=== PATIENT | female | born 1950 | race Caucasian/White ===

== ENCOUNTER 2020-05-17 16:48 | Inpatient (IN) ==
--- OUTSIDE RECORDS SUMMARY | 2020-05-17 16:51 | External Medical Summary | Continuity of Care Document ---
:1950 Author Name Nissa Hawk, Provider Address Unavailable Unavailable , Care Team Providers Name Role Phone Unavailable Unavailable Unavailable SVEN CARRERA Unavailable Unavailable Unavailable Unavailable Unavailable Problems Obstructive sleep apnea of adult (327.23) (G47.33) Nocturnal hypoxemia (327.24) (G47.34) Suspected sleep apnea (781.99) (R29.818) Allergies and Adverse Reactions No Known Drug Allergies (Allergy) Medications Vitamin E 400 UNIT Oral Tablet; TAKE 1 TABLET DAILY. , M.DEdmar Start: 12-May-2018 Refills: 0 Vitamin D (Cholecalciferol) 10 MCG (400 UNIT) Oral Capsule; TAKE 1 CAPSULE Daily , M.DEdmar Start: 12-May-2018 Refills: 0 Vitamin C 500 MG Oral Tablet; TAKE 1 TABLET DAILY. Kenn Start: 12-May-2018 Refills: 0 Multi For Her Oral Tablet; TAKE 1 TABLET DAILY. , M.DEdmar Start: 12-May-2018 Refills: 0 Clindamycin Phosphate 1 % External Gel; as directed Kenn Start: 12-May-2018 Refills: 0 75 ML Bottle Aspirin 81 81 MG Oral Tablet Delayed Release; TAKE 1 TABLET DAILY. , M.DEdmar Start: 12-May-2018 Refills: 0 Procedures History of section Status: Comp leted Immunizations Immunizations not documented Family History Mother Family history of hypertension (V17.49) (Z82.49) Status: Act caron Family history of heart failure (V17.49) (Z82.49) Status: Ac tive Family history of diabetes mellitus (V18.0) (Z83.3) Status: Active Plan of Treatment Planned Observations Planned Goals not documented Results No Known Results Results not documented
--- NOTE | 2020-05-17 17:33 | Emergency Department Note ---
History of Present Illness General Chief complaint: Abdominal Pain Stated complaint: AB PAIN Time Seen by Provider: 05/17/20 17:18 Source: patient Mode of arrival: EMS History of Present Illness Provider complaint: Abdominal pain Onset (ago): month(s) Location: abdomen (Periumbilical) Radiation: non-radiation Severity: moderate Pain Consistency: + intermittent and + now resolved Maximum Pain Intensity: 1 Quality: + burning and + aching Exacerbated By: + eating Associated symptoms: + diaphoresis; no chest pain, no cough, no fever/chills, no nausea/vomiting and no shortness of breath Treatments prior to arrival: NSAID (Toradol 15 and Zofran 4 mg IV) This is a 69-year-old female presents with periumbilical abdominal pain intermittently for the past 2 months. Today she ate a veggie burger and about an hour later she developed pain in the periumbilical region. She describes it as a burning and aching pain. It was associated with diaphoresis. She was given Toradol and Zofran in the ambulance and she states the pain is now gone. She states she does not have the pain every day but notices it after eating. She denies any fever, vomiting, black or bloody stools, diarrhea, chest pain, shortness of breath, cough or cold symptoms or known exposure to COVID-19. She denies any leg swelling or pain. She does have some chronic low back pain. She has had no urinary symptoms. She states that she is normally bradycardic. She states that her doctor told her this is because she used to be very active. Home Medications Home Medications Medication Instructions Recorded Confirmed Type Meloxicam (Mobic) 7.5 mg PO QAM #0 tab 06/19/15 History Allergies Allergy/AdvReac Type Severity Reaction Status Date / Time No Known Drug Allergies Allergy Unknown . Verified 06/19/15 07:32 Past Med/Surg History Medical History Hypertension Sleep apnea Social History Smoking Status: Former smoker Preferred Language: Portuguese Feels Safe at Home: Yes Review of Systems See HPI for pertinent positives & negatives. and A total of 10 systems reviewed and were otherwise negative Physical Exam Vital Signs Vital Signs - 24 hr 05/17/20 16:55 05/17/20 17:27 05/17/20 18:01 Temperature 37.1 C Temperature Source Oral Pulse Rate 52 L 45 L Pulse Rate from SpO2 Sensor 46 L Pulse Rhythm Regular Pulse Strength Normal Respiratory Rate 20 13 Respiratory Effort / Characteristics Non-Labored Spontaneous Respiratory Depth Normal Respiratory Pattern Regular Blood Pressure 167/88 H 166/81 H Blood Pressure Mean 114 101 Blood Pressure Position Sitting Pulse Oximetry 95 96 Oxygen Delivery Method Room Air Room Air Room Air Sepsis Recent Fever Within 48 Hours No Sepsis New/Unexplained Change in Mental Status No Sepsis Action Taken by Nursing No Action Required 05/17/20 18:30 Temperature Temperature Source Pulse Rate 47 L Pulse Rate from SpO2 Sensor 49 L Pulse Rhythm Pulse Strength Respiratory Rate 19 Respiratory Effort / Characteristics Respiratory Depth Respiratory Pattern Blood Pressure 184/75 H Blood Pressure Mean 100 Blood Pressure Position Pulse Oximetry 97 Oxygen Delivery Method Room Air Sepsis Recent Fever Within 48 Hours Sepsis New/Unexplained Change in Mental Status Sepsis Action Taken by Nursing Constitutional: Vital signs reviewed. Eyes: Pupils are equal round reactive to light. Conjunctiva are noninjected. ENT: Pharynx is clear without erythema or exudate. Mucous membranes are moist. Neck supple without meningeal signs. Respiratory: Clear to auscultation bilaterally. Breath sounds are equal bilaterally. Cardiovascular: Bradycardia. Normal rhythm. No rubs or gallops. GI: Soft, nondistended and nontender. Bowel sounds are present. Musculoskeletal: No peripheral edema. No lower extremity tenderness. Integumentary: No cyanosis. or jaundice. Neurological: The patient is awake and alert. No focal deficits. Psychiatric: Normal affect. Not anxious appearing. Course Administered Medications Discontinued Medications Ioversol (Optiray 320 125ml) 119 ml IV ONCE ONE Stop: 05/17/20 18:49 Last Admin: 05/17/20 18:48 Dose: 119 ml Documented by: [id number] Medical Decision Making Differential Diagnosis Cholelithiasis, cholecystitis, pancreatitis, peptic ulcer disease, mesenteric ischemia, NC Medical Records Attestation: I reviewed the patient's medical records. I did perform a limited focused review of portions of the patient's old chart on the electronic medical record. The patient has had no recent pertinent visits to this hospital. Home Medications Current Medication List: was personally reviewed by me Laboratory Data Attestation: I reviewed the patient's lab results. Result diagrams: 05/17/20 17:00 05/17/20 17:00 Lab Results 05/17/20 05/17/20 05/17/20 Range/Units 17:00 17:00 18:01 WBC 8.04 (4.8-10.8) K/uL RBC 4.98 (4.2-5.4) M/uL Hgb 14.5 (12.0-16.0) g/dL Hct 44.4 (37-47) % MCV 89.2 (80-100) fL MCH 29.1 (25-34) pg MCHC 32.7 (32-36) g/dL RDW Std Deviation 43.0 (36.4-46.3) fL RDW Coeff of Lizette 13.1 (11.5-14.5) % Plt Count 297 (130-400) K/uL MPV 10.4 (7.4-10.4) fL Immature Gran % (Auto) 0.4 % Neut % (Auto) 54.3 % Lymph % (Auto) 38.1 % Carter % (Auto) 5.3 % Eos % (Auto) 1.7 % Baso % (Auto) 0.2 % Neut # (Auto) 4.36 (1.4-6.5) K/uL Lymph # (Auto) 3.06 (1.2-3.4) K/uL Carter # (Auto) 0.43 (0.11-0.59) K/uL Eos # (Auto) 0.14 (0-0.5) K/uL Baso # (Auto) 0.02 (0-0.2) K/uL Immature Gran # (Auto) 0.03 H (0.00-0.02) K/uL Sodium 140 (136-145) mmol/L Potassium 3.7 (3.5-5.1) mmol/L Chloride 108 H (98-107) mmol/L Carbon Dioxide 27 (21-32) mmol/L Anion Gap 5.0 (3-11) BUN 11 (7-18) mg/dl Creatinine 0.77 (0.6-1.2) mg/dl Est Cr Clr Drug Dosing 76.9 ml/min Est GFR ( Amer) 90.7 Est GFR (Non-Af Amer) 78.2 BUN/Creatinine Ratio 14.8 (10-20) Glucose 126 H (70-99) mg/dl Lactate 0.9 (0.4-2.0) mmol/L Calcium 9.2 (8.5-10.1) mg/dl Total Bilirubin 1.3 H (0.2-1) mg/dl AST 119 H (15-37) U/L ALT 52 (12-78) U/L Alkaline Phosphatase 164 H (45-117) U/L Troponin I < 0.015 (0-0.045) ng/ml Total Protein 7.9 (6.4-8.2) gm/dl Albumin 3.7 (3.4-5.0) gm/dl Globulin 4.2 H (2.5-4.0) gm/dl Albumin/Globulin Ratio 0.9 (0.9-2) Lipase 76 (73-393) U/L Urine Color Urine Appearance (Clear) Urine pH (4.5-7.5) Ur Specific [place] (1.000-1.030) Urine Protein (Negative) Urine Glucose (UA) (Negative) Urine Ketones (Negative) Urine Blood (Negative) Urine Nitrite (Negative) Urine Bilirubin (Negative) Urine Urobilinogen (Negative) Ur Leukocyte Esterase (Negative) Urine WBC (Auto) (0-5) /hpf Urine RBC (Auto) (0-4) /hpf U Hyaline Cast (Auto) (0-5) /lpf U Epithel Cells (Auto) (0-5) /lpf Urine Bacteria (Auto) (Negative) 05/17/20 Range/Units 18:30 WBC (4.8-10.8) K/uL RBC (4.2-5.4) M/uL Hgb (12.0-16.0) g/dL Hct (37-47) % MCV (80-100) fL MCH (25-34) pg MCHC (32-36) g/dL RDW Std Deviation (36.4-46.3) fL RDW Coeff of Lizette (11.5-14.5) % Plt Count (130-400) K/uL MPV (7.4-10.4) fL Immature Gran % (Auto) % Neut % (Auto) % Lymph % (Auto) % Carter % (Auto) % Eos % (Auto) % Baso % (Auto) % Neut # (Auto) (1.4-6.5) K/uL Lymph # (Auto) (1.2-3.4) K/uL Carter # (Auto) (0.11-0.59) K/uL Eos # (Auto) (0-0.5) K/uL Baso # (Auto) (0-0.2) K/uL Immature Gran # (Auto) (0.00-0.02) K/uL Sodium (136-145) mmol/L Potassium (3.5-5.1) mmol/L Chloride (98-107) mmol/L Carbon Dioxide (21-32) mmol/L Anion Gap (3-11) BUN (7-18) mg/dl Creatinine (0.6-1.2) mg/dl Est Cr Clr Drug Dosing ml/min Est GFR ( Amer) Est GFR (Non-Af Amer) BUN/Creatinine Ratio (10-20) Glucose (70-99) mg/dl Lactate (0.4-2.0) mmol/L Calcium (8.5-10.1) mg/dl Total Bilirubin (0.2-1) mg/dl AST (15-37) U/L ALT (12-78) U/L Alkaline Phosphatase (45-117) U/L Troponin I (0-0.045) ng/ml Total Protein (6.4-8.2) gm/dl Albumin (3.4-5.0) gm/dl Globulin (2.5-4.0) gm/dl Albumin/Globulin Ratio (0.9-2) Lipase (73-393) U/L Urine Color Yellow Urine Appearance Clear (Clear) Urine pH 6.5 (4.5-7.5) Ur Specific [place] 1.010 (1.000-1.030) Urine Protein Negative (Negative) Urine Glucose (UA) Negative (Negative) Urine Ketones 1+ H (Negative) Urine Blood Negative (Negative) Urine Nitrite Negative (Negative) Urine Bilirubin Negative (Negative) Urine Urobilinogen Positive H (Negative) Ur Leukocyte Esterase Trace H (Negative) Urine WBC (Auto) 1-5 (0-5) /hpf Urine RBC (Auto) 0-4 (0-4) /hpf U Hyaline Cast (Auto) 0 (0-5) /lpf U Epithel Cells (Auto) 10-20 H (0-5) /lpf Urine Bacteria (Auto) Negative (Negative) Imaging Data Radiologist's Impression: CT angio abdomen pelvis w con HISTORY: periumbilical pain eval for mesenteric ischemia TECHNIQUE: Multiaxial CT images of the abdomen and pelvis were performed following the use of intravenous contrast to evaluate the major arterial structures. Maximal intensity projection images were also obtained. COMPARISON STUDY: None. FINDINGS: Mild elevation of the left hemidiaphragm. There are mild dependent changes seen within the lung bases. No pneumoperitoneum. No pneumatosis. No fractures within the visualized osseous structures. The heart is mildly enlarged. Abdominal aorta and iliac arteries are normal in course and caliber. No significant stenosis within the celiac, superior mesenteric, or inferior mesenteric arteries. Of note, the right hepatic artery originates from the prox imal superior mesenteric artery. The bilateral renal arteries are also widely patent. Diffusely thick-walled gallbladder with mild surrounding fat stranding. This likely represents acute cholecystitis. The liver, pancreas, spleen, and adrenal glands are unremarkable. No hydronephrosis. Small bilateral peripelvic renal cysts are noted. There is a 1 cm fat-containing lesion within the lower pole the right kidney. This is consistent with an angiomyolipoma. No retroperitoneal lymphadenopathy. Tiny fat-containing umbilical hernia. The bladder, uterus, bilateral adnexa are within normal limits. Colonic diverticulosis. No evidence for acute diverticulitis. No bowel wall thickening or obstruction. Normal appendix. IMPRESSION: 1. Diffusely thick-walled gallbladder with mild surrounding inflammatory change. This likely represents acute cholecystitis. 2. No significant stenosis or occlusion within the celiac or mesenteric arteries. 3. No bowel wall thickening or obstruction. 4. Normal appendix. 5. A 1 cm right renal angiomyolipoma. ACT 112: Negative or not required by law. Electronically signed by: Oscar Maza M.D. 05/17/2020 7:03 PM ECG Data Attestation: I personally reviewed and interpreted this ECG as follows: Indication: + abdominal pain Rate (beats per minute): 45 Rhythm: + sinus bradycardia ECG Intervals/blocks: no Complete heart block ECG ST segments: no ST elevation ECG Findings: no PVCs Blood Pressure Blood Pressure Findings: Elevated blood pressure Blood Pressure Disposition: Referred to patients primary care provider MDM Narrative I did evaluate the patient as noted above. The patient is presenting with intermittent postprandial abdominal pain for the past 2 months. She had a severe episode today after eating and called the ambulance. She was given Toradol and Zofran in the ambulance and now states that her pain is gone. She has no tenderness on examination. I did place an order for continuous cardiac monitoring. The monitor showed sinus bradycardia with a rate of 51. I did order and personally review the patient's 12-lead EKG as described above. She has sinus bradycardia without any acute ischemic changes. I did order a urine analysis. I did order and review the patient's blood work as noted in the electronic medical record. Her white count is not elevated. LFTs demonstrate a mildly elevated bilirubin at 1.3 and a mildly elevated AST. Lipase is within normal limits. Lactate is not elevated. I did order a CT angiogram of the abdomen and pelvis. I did review the images myself as well as the radiology report as described above. There is no evidence of acute mesenteric ischemia or stenosis or occlusion to the arteries. She does, however, have evidence of acute cholecystitis with a diffusely thick walled gallbladder with surrounding inflammatory changes. I did discuss the test results with the patient. She will be hospitalized for further care and evaluation. I did discuss the case with Dr. Alcantara of surgery. Impression & Plan Acute cholecystitis Discharge Plan Visit Data Chief Complaint: Abdominal Pain Stated Complaint: AB PAIN ED Provider: Armando Walters Discharge Problem: Acute cholecystitis Patient Disposition: Being Evaluated by Surgeon Forms Stand Alone Forms: [facility] Prescriptions Prescriptions: No Action Meloxicam (Mobic) 7.5 MG tablet 7.5 mg PO QAM Qty: 0 RF: 0 Referrals Referrals: Darius Jackson M.D. [Primary Care Provider] -
[2020-05-17 17:38] LABS: Basophils # (auto) 0.02 K/uL (0-0.2); Basophils % (auto) 0.2 %; Eosinophils # (auto) 0.14 K/uL (0-0.5); Eosinophils % (auto) 1.7 %; Hematocrit (blood only) 44.4 % (37-47); Hemoglobin 14.5 g/dL (12.0-16.0); Immature Granulocytes # (auto) 0.03 K/uL (0.00-0.02); Immature Granulocytes % (auto) 0.4 %; Lymphocytes # (auto) 3.06 K/uL (1.2-3.4); Lymphocytes % (auto) 38.1 %; Mean Corpuscular Hemoglobin 29.1 pg (25-34); Mean Corpuscular Hgb Conc 32.7 g/dL (32-36); Mean Corpuscular Volume 89.2 fL (80-100); Mean Platelet Volume 10.4 fL (7.4-10.4); Monocytes # (auto) 0.43 K/uL (0.11-0.59); Monocytes % (auto) 5.3 %; Neutrophils # (auto) 4.36 K/uL (1.4-6.5); Neutrophils % (auto) 54.3 %; Platelet Count 297 K/uL (130-400); RDW Coefficient of Variation 13.1 % (11.5-14.5); Red Blood Count 4.98 M/uL (4.2-5.4); White Blood Count 8.04 K/uL (4.8-10.8)
[2020-05-17 17:45] LABS: Alanine Aminotransferase 52 U/L (12-78); Albumin Level 3.7 gm/dl (3.4-5.0); Aspartate Aminotransferase 119 U/L (15-37); BUN Creatinine Ratio 14.8 (10-20); Blood Urea Nitrogen 11 mg/dl (7-18); Calcium 9.2 mg/dl (8.5-10.1); Carbon Dioxide 27 mmol/L (21-32); Chloride 108 mmol/L (98-107); Creatinine Clr Calc Pharmacy 76.9 ml/min; Est GFR (African American) 90.7; Est GFR (Non-African American) 78.2; Glucose 126 mg/dl (70-99); Lipase 76 U/L (73-393); Potassium 3.7 mmol/L (3.5-5.1); Sodium 140 mmol/L (136-145)
[2020-05-17 17:50] LABS: Albumin Globulin Ratio 0.9 (0.9-2); Alkaline Phosphatase 164 U/L (45-117); Bilirubin,Total 1.3 mg/dl (0.2-1); Globulin 4.2 gm/dl (2.5-4.0); Total Protein 7.9 gm/dl (6.4-8.2); Troponin I < 0.015 ng/ml (0-0.045)
[2020-05-17] MEDS ORDERED: OPTIRAY 320 125ml IV ONE (18:48)
[2020-05-17 18:51] LABS: Appearance Urine Clear (Clear); Bacteria Urine Automated Negative (Negative); Bilirubin Urine Negative (Negative); Blood Urine Negative (Negative); Cast Urine Automated 0 /lpf (0-5); Color Urine Yellow; Glucose Urine UA Negative (Negative); Ketones Urine 1+ (Negative); Leukocyte Esterase Urine Trace (Negative); Nitrite Urine Negative (Negative); Protein Urine Negative (Negative); RBC Urine Automated 0-4 /hpf (0-4); Urobilinogen Urine Positive (Negative); pH Urine 6.5 (4.5-7.5)
--- NOTE | 2020-05-17 19:04 | CT Scan Report ---
CT angio abdomen pelvis w con HISTORY: periumbilical pain eval for mesenteric ischemia TECHNIQUE: Multiaxial CT images of the abdomen and pelvis were performed following the use of intrave nous contrast to evaluate the major arterial structures. Maximal intensity projection images were als o obtained. COMPARISON STUDY: None. FINDINGS: Mild elevation of the left hemidiaphragm. There are mild dependent changes seen within the lung bases. No pneumoperitoneum. No pneumatosis. No fractures within the visualized osseous structure s. The heart is mildly enlarged. Abdominal aorta and iliac arteries are normal in course and caliber. No significant stenosis within the celiac, superior mesenteric, or inferior mesenteric arteries. Of note, the right hepatic artery originates from the proximal superior mesenteric artery. The bilateral renal arteries are also widely patent. Diffusely thick-walled gallbladder with mild surrounding fat stranding. This likely represents acute cholecystitis. The liver, pancreas, spleen, and adrenal gland s are unremarkable. No hydronephrosis. Small bilateral peripelvic renal cysts are noted. There is a 1 cm fat-containing lesion within the lower pole the right kidney. This is consistent with an angiomyo lipoma. No retroperitoneal lymphadenopathy. Tiny fat-containing umbilical hernia. The bladder, uterus , bilateral adnexa are within normal limits. Colonic diverticulosis. No evidence for acute diverticul itis. No bowel wall thickening or obstruction. Normal appendix. IMPRESSION: 1. Diffusely thick-walled gallbladder with mild surrounding inflammatory change. This likely represen ts acute cholecystitis. 2. No significant stenosis or occlusion within the celiac or mesenteric arteries. 3. No bowel wall thickening or obstruction. 4. Normal appendix. 5. A 1 cm right renal angiomyolipoma. ACT 112: Negative or not required by law. Electronically signed by: Oscar Maza M.D. 05/17/2020 7:03 PM
--- NOTE | 2020-05-17 20:48 | History & Physical Report ---
Date of Service May 17, 2020 Assessment & Plan (1) Acute cholecystitis: This patient has a history of postprandial pain in the epigastrium and right upper quadrant. This is the most severe episode. It is now resolving. She has an ache there now and her abdomen has no tenderness. Her bilirubin alkaline phosphatase and AST are mildly elevated. Her CAT scan demonstrates thickening of the gallbladder wall with pericholecystic fluid. Willing to admit the patient. We will place her on antibiotics. We will repeat her LFTs and CBC in the morning to see if there is a trend upward. I am also going to get an ultrasound of the right upper quadrant to evaluate ductal anatomy more fully. We discussed surgical intervention. We will await the results of the testing and have further discussion. History of Present Illness Chief Complaint: Right upper quadrant abdominal pain Primary Care Provider: Darius Jackson This is a 69-year-old female who presented to the emergency room with a complaint of abdominal pain centered in the right upper quadrant with some in the epigastric area that she described as a burning sensation. It began an hour after eating lunch today around 2:00. The severity increased in intensity such that it was severe. She called the ambulance and was transported for evaluation here in the emergency room. Over the last 2 to 3 months she has had similar pain to this but not this severe. It is located in the same place however. The pain always follows eating. She is unsure but thinks that fatty foods may be contributing. She had nausea with this pain but does not usually. She has not vomited. Her bowel habits have been regular without melena or hematochezia and she denies dysuria and hematuria. She has never had jaundice, hepatitis or pancreatitis. She felt hot and diaphoretic but does not think she had a fever. Allergies Allergy/AdvReac Type Severity Reaction Status Date / Time No Known Drug Allergies Allergy Unknown . Verified 05/17/20 20:15 Home Medications Home Medications Medication Instructions Recorded Confirmed Type activated charcoal [Charcoal] 0 mg PO UD PRN 05/17/20 05/17/20 History ascorbic acid (vitamin C) [Vitamin 1,000 mg PO BID 05/17/20 05/17/20 History C] cholecalciferol (vitamin D3) 150 - 200 mcg PO DAILY 05/17/20 05/17/20 History [Vitamin D3] vitamin E 0 unit PO DAILY 05/17/20 05/17/20 History Past Med/Surg History Medical History (Updated 05/17/20 @ 19:46 by Armando Walters MD) Hypertension Sleep apnea Surgical History (Updated 05/17/20 @ 20:44 by Tomi Alcantara MD) deliv NOS-unsp Social History Smoking Status: Former smoker Preferred Language: [place] Feels Safe at Home: Yes Review of Systems Review of Systems: All systems reviewed & are unremarkable except as noted in HPI & below Physical Exam Constitutional: no acute distress Neck: trachea midline Respiratory: normal respiratory effort, lungs clear to auscultation Cardiovascular: Rate/Rhythm: regular rate and regular rhythm Gastrointestinal (Abdomen): Inspection/Auscultation: normal bowel sounds; abdomen not distended Percussion/Palpation: abdomen soft; abdomen nontender Skin: no rashes, warm and dry Lymphatic: no cervical lymphadenopathy Results & Data Results & Data ([facility]) Vital Signs (Past 12 Hours) Vital Signs Temp Pulse Resp BP Pulse Ox 05/17/20 19:31 53 L 14 178/79 H 97 05/17/20 19:00 52 L 18 181/84 H 97 05/17/20 18:30 47 L 19 184/75 H 97 05/17/20 18:01 45 L 13 166/81 H 96 05/17/20 16:55 37.1 C 52 L 20 167/88 H 95 Laboratory Results 05/17/20 05/17/20 05/17/20 Range/Units 18:30 18:01 17:00 WBC 8.04 (4.8-10.8) K/uL RBC 4.98 (4.2-5.4) M/uL Hgb 14.5 (12.0-16.0) g/dL Hct 44.4 (37-47) % MCV 89.2 (80-100) fL MCH 29.1 (25-34) pg MCHC 32.7 (32-36) g/dL RDW Std Deviation 43.0 (36.4-46.3) fL RDW Coeff of Lizette 13.1 (11.5-14.5) % Plt Count 297 (130-400) K/uL MPV 10.4 (7.4-10.4) fL Immature Gran % (Auto) 0.4 % Neut % (Auto) 54.3 % Lymph % (Auto) 38.1 % Lewis % (Auto) 5.3 % Eos % (Auto) 1.7 % Baso % (Auto) 0.2 % Neut # (Auto) 4.36 (1.4-6.5) K/uL Lymph # (Auto) 3.06 (1.2-3.4) K/uL Lewis # (Auto) 0.43 (0.11-0.59) K/uL Eos # (Auto) 0.14 (0-0.5) K/uL Baso # (Auto) 0.02 (0-0.2) K/uL Immature Gran # (Auto) 0.03 H (0.00-0.02) K/uL Sodium (136-145) mmol/L Potassium (3.5-5.1) mmol/L Chloride (98-107) mmol/L Carbon Dioxide (21-32) mmol/L Anion Gap (3-11) BUN (7-18) mg/dl Creatinine (0.6-1.2) mg/dl Est Cr Clr Drug Dosing ml/min Est GFR ( Amer) Est GFR (Non-Af Amer) BUN/Creatinine Ratio (10-20) Glucose (70-99) mg/dl Lactate 0.9 (0.4-2.0) mmol/L Calcium (8.5-10.1) mg/dl Total Bilirubin (0.2-1) mg/dl AST (15-37) U/L ALT (12-78) U/L Alkaline Phosphatase (45-117) U/L Troponin I (0-0.045) ng/ml Total Protein (6.4-8.2) gm/dl Albumin (3.4-5.0) gm/dl Globulin (2.5-4.0) gm/dl Albumin/Globulin Ratio (0.9-2) Lipase (73-393) U/L Urine Color Yellow Urine Appearance Clear (Clear) Urine pH 6.5 (4.5-7.5) Ur Specific [place] 1.010 (1.000-1.030) Urine Protein Negative (Negative) Urine Glucose (UA) Negative (Negative) Urine Ketones 1+ H (Negative) Urine Blood Negative (Negative) Urine Nitrite Negative (Negative) Urine Bilirubin Negative (Negative) Urine Urobilinogen Positive H (Negative) Ur Leukocyte Esterase Trace H (Negative) Urine WBC (Auto) 1-5 (0-5) /hpf Urine RBC (Auto) 0-4 (0-4) /hpf U Hyaline Cast (Auto) 0 (0-5) /lpf U Epithel Cells (Auto) 10-20 H (0-5) /lpf Urine Bacteria (Auto) Negative (Negative) 05/17/20 Range/Units 17:00 WBC (4.8-10.8) K/uL RBC (4.2-5.4) M/uL Hgb (12.0-16.0) g/dL Hct (37-47) % MCV (80-100) fL MCH (25-34) pg MCHC (32-36) g/dL RDW Std Deviation (36.4-46.3) fL RDW Coeff of Lizette (11.5-14.5) % Plt Count (130-400) K/uL MPV (7.4-10.4) fL Immature Gran % (Auto) % Neut % (Auto) % Lymph % (Auto) % Lewis % (Auto) % Eos % (Auto) % Baso % (Auto) % Neut # (Auto) (1.4-6.5) K/uL Lymph # (Auto) (1.2-3.4) K/uL Lewis # (Auto) (0.11-0.59) K/uL Eos # (Auto) (0-0.5) K/uL Baso # (Auto) (0-0.2) K/uL Immature Gran # (Auto) (0.00-0.02) K/uL Sodium 140 (136-145) mmol/L Potassium 3.7 (3.5-5.1) mmol/L Chloride 108 H (98-107) mmol/L Carbon Dioxide 27 (21-32) mmol/L Anion Gap 5.0 (3-11) BUN 11 (7-18) mg/dl Creatinine 0.77 (0.6-1.2) mg/dl Est Cr Clr Drug Dosing 76.9 ml/min Est GFR ( Amer) 90.7 Est GFR (Non-Af Amer) 78.2 BUN/Creatinine Ratio 14.8 (10-20) Glucose 126 H (70-99) mg/dl Lactate (0.4-2.0) mmol/L Calcium 9.2 (8.5-10.1) mg/dl Total Bilirubin 1.3 H (0.2-1) mg/dl AST 119 H (15-37) U/L ALT 52 (12-78) U/L Alkaline Phosphatase 164 H (45-117) U/L Troponin I < 0.015 (0-0.045) ng/ml Total Protein 7.9 (6.4-8.2) gm/dl Albumin 3.7 (3.4-5.0) gm/dl Globulin 4.2 H (2.5-4.0) gm/dl Albumin/Globulin Ratio 0.9 (0.9-2) Lipase 76 (73-393) U/L Urine Color Urine Appearance (Clear) Urine pH (4.5-7.5) Ur Specific [place] (1.000-1.030) Urine Protein (Negative) Urine Glucose (UA) (Negative) Urine Ketones (Negative) Urine Blood (Negative) Urine Nitrite (Negative) Urine Bilirubin (Negative) Urine Urobilinogen (Negative) Ur Leukocyte Esterase (Negative) Urine WBC (Auto) (0-5) /hpf Urine RBC (Auto) (0-4) /hpf U Hyaline Cast (Auto) (0-5) /lpf U Epithel Cells (Auto) (0-5) /lpf Urine Bacteria (Auto) (Negative) Diagnostic Findings CT angio abdomen pelvis w con HISTORY: periumbilical pain eval for mesenteric ischemia TECHNIQUE: Multiaxial CT images of the abdomen and pelvis were performed following the use of intravenous contrast to evaluate the major arterial structures. Maximal intensity projection images were also obtained. COMPARISON STUDY: None. FINDINGS: Mild elevation of the left hemidiaphragm. There are mild dependent changes seen within the lung bases. No pneumoperitoneum. No pneumatosis. No fractures within the visualized osseous structures. The heart is mildly enlarged. Abdominal aorta and iliac arteries are normal in course and caliber. No significant stenosis within the celiac, superior mesenteric, or inferior mesenteric arteries. Of note, the right hepatic artery originates from the proximal superior mesenteric artery. The bilateral renal arteries are also widely patent. Diffusely thick-walled gallbladder with mild surrounding fat stranding. This likely represents acute cholecystitis. The liver, pancreas, spleen, and adrenal glands are unremarkable. No hydronephrosis. Small bilateral peripelvic renal cysts are noted. There is a 1 cm fat-containing lesion within the lower pole the right kidney. This is consistent with an angiomyolipoma. No retroperitoneal lymphadenopathy. Tiny fat-containing umbilical hernia. The bladder, uterus, bilateral adnexa are within normal limits. Colonic diverticulosis. No evidence for acute diverticulitis. No bowel wall thickening or obstruction. Normal appendix. IMPRESSION: 1. Diffusely thick-walled gallbladder with mild surrounding inflammatory change. This likely represents acute cholecystitis. 2. No significant stenosis or occlusion within the celiac or mesenteric arteries. 3. No bowel wall thickening or obstruction. 4. Normal appendix. 5. A 1 cm right renal angiomyolipoma.
[2020-05-17] MEDS ORDERED: ONDANSETRON INJ 2 MG/ML 2 ML VIAL ONE (21:03)
[2020-05-17] MEDS ORDERED: MoRPHine SULFATE 2 MG/ML CARP ONE (21:03)
[2020-05-17] MEDS ORDERED: ONDANSETRON INJ 2 MG/ML 2 ML VIAL IV PRN (22:58)
[2020-05-17] MEDS: POTASSIUM CHLORIDE 10 MEQ in SODIUM CHLORIDE 0.9% 1000ML 1,000 ML IV SCH (23:46)
[2020-05-18] MEDS: MoRPHine SULFATE 2 MG/ML CARP IV PRN ×2 (01:53→06:34)
[2020-05-18 07:16] LABS: Basophils # (auto) 0.01 K/uL (0-0.2); Basophils % (auto) 0.1 %; Eosinophils % (auto) 1.4 %; Hematocrit (blood only) 40.5 % (37-47); Hemoglobin 13.8 g/dL (12.0-16.0); Lymphocytes # (auto) 1.66 K/uL (1.2-3.4); Lymphocytes % (auto) 23.7 %; Mean Corpuscular Hemoglobin 30.5 pg (25-34); Mean Corpuscular Hgb Conc 34.1 g/dL (32-36); Mean Corpuscular Volume 89.6 fL (80-100); Monocytes # (auto) 0.55 K/uL (0.11-0.59); Monocytes % (auto) 7.9 %; Neutrophils # (auto) 4.67 K/uL (1.4-6.5); Neutrophils % (auto) 66.9 %; Platelet Count 251 K/uL (130-400); RDW Coefficient of Variation 13.2 % (11.5-14.5); RDW Standard Deviation 43.1 fL (36.4-46.3); Red Blood Count 4.52 M/uL (4.2-5.4); White Blood Count 6.99 K/uL (4.8-10.8)
--- NOTE | 2020-05-18 07:17 | Anesthesiology Consultation ---
Date of Service May 18, 2020 Assessment & Plan (1) Encounter for pre-operative examination: Chart Review Chart Review: Acceptable Risk for Surgery (need preop ECG for baseline if one hasn't been done) History Surgery Operation Date: 05/18/20 07:15 Proposed Procedures p Laparoscopic Cholecystectomy - Tomi Alcantara MD Height/Weight Height: 5 ft 2 in Weight: 100.4 kg Allergies Allergy/AdvReac Type Severity Reaction Status Date / Time No Known Drug Allergies Allergy Unknown . Verified 05/17/20 20:15 Medications Home Medications Medication Instructions Recorded Confirmed Last Taken activated charcoal [Charcoal] 0 mg PO UD PRN 05/17/20 05/17/20 05/17/20 ascorbic acid (vitamin C) [Vitamin 1,000 mg PO BID 05/17/20 05/17/20 Unknown C] cholecalciferol (vitamin D3) 150 - 200 mcg PO DAILY 05/17/20 05/17/20 Unknown [Vitamin D3] vitamin E 0 unit PO DAILY 05/17/20 05/17/20 Unknown Active Medications Generic Name Dose Route Start Last Admin Trade Name Freq PRN Reason Stop Dose Admin Potassium Chloride 10 meq/ 1,005 mls @ 100 mls/hr 05/17/20 22:58 05/18/20 06:07 Sodium Chloride IV 06/16/20 22:57 100 mls/hr .Q10H3M PAT Infusion Cefoxitin Sodium 1,000 mg/ 60 mls @ 100 mls/hr 05/17/20 23:00 05/18/20 06:07 Dextrose IV 05/27/20 22:59 Infused Q6H PAT Infusion Morphine Sulfate 2 mg 05/17/20 23:06 05/18/20 06:34 Morphine Sulfate 2 Mg/Ml Carp IV 05/31/20 23:05 2 mg Q2H PRN Administration Pain NPO Date Last Intake of Fluids: 05/17/20 Time Last Intake of Fluids: 23:59 Date Last Intake of Solids: 05/17/20 Time Last Intake of Solids: 23:59 Past Medical History Medical History Hypertension Sleep apnea Past Surgical History Surgical History deliv NOS-unsp Social History Smoking Status: Never smoker Hx Alcohol Use: Yes Alcohol type: wine alcohol intake frequency: a few times a week Hx Substance Use: No Physical Exam Vital Signs Last Vital Signs Temp 36.8 C 05/17/20 22:30 Pulse 0 L 05/17/20 22:30 Resp 16 05/17/20 22:30 BP 145/83 H 05/17/20 22:30 Pulse Ox 94 05/17/20 23:45 Testing Laboratory Results 05/18/20 06:59 Urine Color Yellow 05/17/20 18:30 Urine Appearance Clear (Clear) 05/17/20 18:30 Urine pH 6.5 (4.5-7.5) 05/17/20 18:30 Ur Specific [place] 1.010 (1.000-1.030) 05/17/20 18:30 Urine Protein Negative (Negative) 05/17/20 18:30 Urine Glucose (UA) Negative (Negative) 05/17/20 18:30 Urine Ketones 1+ (Negative) H 05/17/20 18:30 Urine Nitrite Negative (Negative) 05/17/20 18:30 Ur Leukocyte Esterase Trace (Negative) H 05/17/20 18:30 Urine WBC (Auto) 1-5 /hpf (0-5) 05/17/20 18:30 Urine RBC (Auto) 0-4 /hpf (0-4) 05/17/20 18:30 U Hyaline Cast (Auto) 0 /lpf (0-5) 05/17/20 18:30 U Epithel Cells (Auto) 10-20 /lpf (0-5) H 05/17/20 18:30 Urine Bacteria (Auto) Negative (Negative) 05/17/20 18:30 Laboratory Tests 05/17/20 17:00 Potassium 3.7 Creatinine 0.77
[2020-05-18] MEDS ORDERED: GLYCOPYRROLATE 0.2 MG/ML VIAL ONE (07:20)
[2020-05-18] MEDS ORDERED: NEOSTIGMINE METHYLSULFATE 5 MG/5 ML SYR ONE (07:20)
[2020-05-18] MEDS ORDERED: DEXAMETHASONE SOD INJ 4 MG/ML VIAL ONE (07:20)
[2020-05-18] MEDS ORDERED: PROPOFOL IV EMULSION 10 MG/ML 20 ML VIAL IV ONE ×2 (07:20→13:18)
[2020-05-18] MEDS ORDERED: ROCURONIUM BROMIDE 10 MG/ML 5 ML VIAL IV ONE ×2 (07:20→13:18)
[2020-05-18] MEDS ORDERED: LIDOCAINE HCL 2% 2 ML VIAL/AMP(20MG/ML) INFIL ONE ×2 (07:20→13:18)
[2020-05-18] MEDS ORDERED: ONDANSETRON INJ 2 MG/ML 2 ML VIAL ONE ×2 (07:20→13:18)
[2020-05-18] MEDS ORDERED: fentaNYL citrate 100 MCG/2 ML VIAL ONE ×3 (07:20→14:27)
--- NOTE | 2020-05-18 07:22 | Ultrasound Report ---
ULTRASOUND RIGHT UPPER QUADRANT ABDOMEN CLINICAL HISTORY: Right upper quadrant abdominal pain. Elevated hepatic transaminases. COMPARISON STUDY: Abdominal CT dated 05/17/2020. TECHNIQUE: Real-time, grayscale, and color flow sonography of the right upper quadrant of the abdomen was performed. Images are reviewed in the transverse and longitudinal planes. FINDINGS: Liver: The liver is normal in size and echotexture. There is no intrahepatic biliary ductal dilatatio n. The main portal vein is patent. Gallbladder: .The gallbladder is filled with stones and sludge. The gallbladder wall is top normal in thickness measuring up to 3 mm. No pericholecystic fluid is seen. A sonographic Aguilar's sign could not be assessed as the patient received analgesia. The common bile duct measures up to 0.8 cm in diam eter. Pancreas: Not visualized due to overlying bowel gas. Right kidney: Survey images of the right kidney demonstrate mild cortical atrophy. Echotexture is nor mal. There is no hydronephrosis. A 1.2 cm angiomyolipoma is again noted. Ascites: None. IMPRESSION: 1. The gallbladder is filled with stones and sludge. The gallbladder wall is top normal in thickness and a sonographic Aguilar's sign could not be assessed. The CT findings remain highly concerning for a cute cholecystitis. If this does not fit the clinical presentation a nuclear hepatobiliary scan could be considered to assess for patency of the cystic duct. 2. The common bile duct measures up to 8 mm. 3. The pancreas was not visualized due to overlying bowel gas. ACT 112: Negative or not required by law. Electronically signed by: Tim Andrews M.D. 05/18/2020 7:20 AM
[2020-05-18 07:39] LABS: Albumin Level 3.1 gm/dl (3.4-5.0); BUN Creatinine Ratio 8.9 (10-20); Calcium 9.1 mg/dl (8.5-10.1); Creatinine Clr Calc Pharmacy 59.8 ml/min; Est GFR (African American) 68.6; Est GFR (Non-African American) 59.2; Potassium 3.8 mmol/L (3.5-5.1)
[2020-05-18 07:49] LABS: Albumin Globulin Ratio 0.8 (0.9-2); Bilirubin,Total 3.2 mg/dl (0.2-1); Globulin 4.1 gm/dl (2.5-4.0); Total Protein 7.2 gm/dl (6.4-8.2)
[2020-05-18] MEDS: POTASSIUM CHLORIDE 10 MEQ in SODIUM CHLORIDE 0.9% 1000ML 1,000 ML IV SCH ×2 (10:53→23:47)
--- NOTE | 2020-05-18 11:19 | Gastrointestinal Consultation ---
Date of Consultation May 18, 2020 Assessment & Plan (1) Dilated bile duct: (2) Elevated LFTs: Upper abd pain with US suggesting a dilated CBD in the presence of cholecystitis and increasing LFTs is very suggestive of choledocholithiasis. 1. INR 2. ERCP this afternoon by Dr. Marina. 3. Keep NPO 4. Further recommendations to follow ERCP. Needs cholecystectomy as well and that is tentatively planned to follow ERCP in the OR today. Present on Admission?: Yes Supervising Physician Co-Signing Physician Notes I saw and evaluated the patient, ERCP requested due to a significant rise in her bilirubin, AST/ALT overnight in the setting of cholelithiasis. Given the scenario it appears the patient likely has and impacted GS, we have discussed the role of ercp for biliary decompression. We discussed the risks to include bleeding, infection, perforation, pain, pancreatitis, failed biliary cannulation and need for f/u studies. PE: Mild ruq tenderness mild scleral icterus Plan ERCP today History of Present Illness Reason for Consultation: Needs ERCP Requesting Physician: Dr. Alcantara Attending Physician: Tomi Alcantara MD History of Present Illness Ms. Tom Winchester is a 69-year-old female with a history of HTN and sleep apnea who presented to the emergency department yesterday for severe upper abdomen pain. GI is consulted to consider ERCP. On arrival, US with cholecystitis, CBD dilated at [address] confirmed the cholecystitis. LFTs were elevated and increased overnight: T Bili 1.3->3. AST 119->672, ALT 52->385, Alk Phos 164->220. She has not had fever or leukocytosis. Kidney function labs are normal. Her pain is improved here compared to yesterday. Allergies Allergy/AdvReac Type Severity Reaction Status Date / Time No Known Drug Allergies Allergy Unknown . Verified 05/17/20 20:15 Home Medications Home Medications Medication Instructions Recorded Confirmed Type activated charcoal [Charcoal] 0 mg PO UD PRN 05/17/20 05/17/20 History ascorbic acid (vitamin C) [Vitamin 1,000 mg PO BID 05/17/20 05/17/20 History C] cholecalciferol (vitamin D3) 150 - 200 mcg PO DAILY 05/17/20 05/17/20 History [Vitamin D3] vitamin E 0 unit PO DAILY 05/17/20 05/17/20 History Patient History Medical History Hypertension Sleep apnea Surgical History deliv NOS-unsp Social History Smoking Status: Never smoker Hx Alcohol Use: Yes Alcohol type: wine Hx Substance Use: No Preferred Language: Kyrgyz Communication Ability: Effective Stitch Wheeler Required: No Beliefs That Will Affect Care: Cultural marital status: Single Current Living Situation: Alone Other Information That Helps Us Care for You: No Feels Safe at Home: Yes Safety Concerns: Feels Safe At This Time Assistive Devices: None Review of Systems Review of Systems: ROS: Gen: Denies weakness, fevers, weight loss Eyes: No eye redness, or pain, no recent vision changes Resp: No SOB, no cough Cardio: No palpitations/irregular beats, no chest pain GI: See HPI, otherwise (-) : Denies pain on urination Skin: No jaundice, itching or new rashes Physical Exam Constitutional: WD/WN, vitals as above Eyes: PERRL, conjunctivae normal, anicteric sclerae ENMT: external ear and nose normal, oropharynx normal Neck: trachea midline, no thyromegaly Respiratory: normal respiratory effort, lungs clear to auscultation Cardiovascular: RRR, no murmur, no edema Gastrointestinal (Abdomen): Inspection/Auscultation: abdomen normal to inspection; abdomen not distended Percussion/Palpation: + abdomen tender (diffusely, worse in the upper abd) and abdomen soft Musculoskeletal: no cyanosis or clubbing, extremities motor strength 5/5 Skin: no rashes, warm and dry Neurologic: PERRL, EOMI, accommodation nl, no face palsy, no dysarthria Psychiatric: A+Ox3, euthymic affect Lymphatic: no cervical or axillary lymphadenopathy Results & Data ([facility]) Vital Signs (Past 12 Hours) Vital Signs Temp Pulse Resp BP Pulse Ox Pulse Ox 05/18/20 07:30 36.7 C 75 18 146/79 H 92 05/17/20 23:45 94
[2020-05-18 11:48] LABS: INR 1.1 (0.9-1.1); Prothrombin Time 11.3 Seconds (9.0-12.0)
--- NOTE | 2020-05-18 12:33 | History & Physical Bridge Note ---
Date of Service May 18, 2020 History & Physical Bridge Note I have examined the patient, reviewed the History & Physical and in the interval since the performance of the History & Physical I have noted the following changes of clinical significance: no changes noted I saw and evaluated the patient, ERCP requested due to a significant rise in her bilirubin, AST/ALT overnight in the setting of cholelithiasis. Given the scenario it appears the patient likely has and impacted GS, we have discussed the role of ercp for biliary decompression. We discussed the risks to include bleeding, infection, perforation, pain, pancreatitis, failed biliary cannulation and need for f/u studies. PE: Mild ruq tenderness mild scleral icterus Plan ERCP today
[2020-05-18] MEDS ORDERED: INDOMETHACIN 50 MG SUPP PR ONE (12:34)
--- NOTE | 2020-05-18 13:04 | Surgery Progress Note ---
Date of Service May 18, 2020 Assessment & Plan (1) Dilated bile duct: This patient continues to have abdominal pain with more elevation of her LFTs. I discussed this with gastroenterology. They saw her. They are planning ERCP after which we will perform laparoscopic cholecystectomy. Gallbladder wall did not appear to be thickened by ultrasound criteria and there was no pericholecystic fluid. I recommended a laparoscopic cholecystectomy after the ERCP. I explained the possible need to convert to an open procedure. We discussed the possible complications and answered her questions. She has signed a consent form. Admission and Anticipated Discharge Date Admission Date: May 17, 2020 Subjective The patient continues to have right upper quadrant abdominal pain She thinks her urine has become dark She has no nausea Ultrasound is noted showing cholelithiasis intra-and extrahepatic biliary ductal dilatation Physical Exam Gastrointestinal (Abdomen): Inspection/Auscultation: abdomen not distended Percussion/Palpation: + abdomen tender (Mild tenderness to moderate palpation of the right upper quadrant) Results & Data ([facility]) Vital Signs (Past 12 Hours) Vital Signs Temp Pulse Resp BP Pulse Ox 05/18/20 12:44 36.8 C 61 18 157/75 H 95 05/18/20 07:30 36.7 C 75 18 146/79 H 92 Laboratory Results 05/18/20 05/18/20 05/18/20 Range/Units 07:03 06:59 06:59 WBC 6.99 (4.8-10.8) K/uL RBC 4.52 (4.2-5.4) M/uL Hgb 13.8 (12.0-16.0) g/dL Hct 40.5 (37-47) % MCV 89.6 (80-100) fL MCH 30.5 (25-34) pg MCHC 34.1 (32-36) g/dL RDW Std Deviation 43.1 (36.4-46.3) fL RDW Coeff of Lizette 13.2 (11.5-14.5) % Plt Count 251 (130-400) K/uL MPV 10.0 (7.4-10.4) fL Immature Gran % (Auto) 0.0 % Neut % (Auto) 66.9 % Lymph % (Auto) 23.7 % [place] % (Auto) 7.9 % Eos % (Auto) 1.4 % Baso % (Auto) 0.1 % Neut # (Auto) 4.67 (1.4-6.5) K/uL Lymph # (Auto) 1.66 (1.2-3.4) K/uL [place] # (Auto) 0.55 (0.11-0.59) K/uL Eos # (Auto) 0.10 (0-0.5) K/uL Baso # (Auto) 0.01 (0-0.2) K/uL Immature Gran # (Auto) 0.00 (0.00-0.02) K/uL PT 11.3 (9.0-12.0) Seconds INR 1.1 (0.9-1.1) Sodium 144 (136-145) mmol/L Potassium 3.8 (3.5-5.1) mmol/L Chloride 111 H (98-107) mmol/L Carbon Dioxide 27 (21-32) mmol/L Anion Gap 6.0 (3-11) BUN 9 (7-18) mg/dl Creatinine 0.97 (0.6-1.2) mg/dl Est Cr Clr Drug Dosing 59.8 ml/min Est GFR ( Amer) 68.6 Est GFR (Non-Af Amer) 59.2 BUN/Creatinine Ratio 8.9 L (10-20) Glucose 106 H (70-99) mg/dl Lactate (0.4-2.0) mmol/L Calcium 9.1 (8.5-10.1) mg/dl Total Bilirubin 3.2 H D (0.2-1) mg/dl AST 672 H (15-37) U/L ALT 385 H (12-78) U/L Alkaline Phosphatase 220 H (45-117) U/L Troponin I (0-0.045) ng/ml Total Protein 7.2 (6.4-8.2) gm/dl Albumin 3.1 L (3.4-5.0) gm/dl Globulin 4.1 H (2.5-4.0) gm/dl Albumin/Globulin Ratio 0.8 L (0.9-2) Lipase (73-393) U/L Urine Color Urine Appearance (Clear) Urine pH (4.5-7.5) Ur Specific [place] (1.000-1.030) Urine Protein (Negative) Urine Glucose (UA) (Negative) Urine Ketones (Negative) Urine Blood (Negative) Urine Nitrite (Negative) Urine Bilirubin (Negative) Urine Urobilinogen (Negative) Ur Leukocyte Esterase (Negative) Urine WBC (Auto) (0-5) /hpf Urine RBC (Auto) (0-4) /hpf U Hyaline Cast (Auto) (0-5) /lpf U Epithel Cells (Auto) (0-5) /lpf Urine Bacteria (Auto) (Negative) COVID-19 Eval Order SARS-CoV-2, RNA, NAAT (NEGATIVE) 05/18/20 05/18/20 05/18/20 Range/Units 02:04 01:45 01:45 WBC (4.8-10.8) K/uL RBC (4.2-5.4) M/uL Hgb (12.0-16.0) g/dL Hct (37-47) % MCV (80-100) fL MCH (25-34) pg MCHC (32-36) g/dL RDW Std Deviation (36.4-46.3) fL RDW Coeff of Lizette (11.5-14.5) % Plt Count (130-400) K/uL MPV (7.4-10.4) fL Immature Gran % (Auto) % Neut % (Auto) % Lymph % (Auto) % [place] % (Auto) % Eos % (Auto) % Baso % (Auto) % Neut # (Auto) (1.4-6.5) K/uL Lymph # (Auto) (1.2-3.4) K/uL [place] # (Auto) (0.11-0.59) K/uL Eos # (Auto) (0-0.5) K/uL Baso # (Auto) (0-0.2) K/uL Immature Gran # (Auto) (0.00-0.02) K/uL PT (9.0-12.0) Seconds INR (0.9-1.1) Sodium (136-145) mmol/L Potassium (3.5-5.1) mmol/L Chloride (98-107) mmol/L Carbon Dioxide (21-32) mmol/L Anion Gap (3-11) BUN (7-18) mg/dl Creatinine (0.6-1.2) mg/dl Est Cr Clr Drug Dosing ml/min Est GFR ( Amer) Est GFR (Non-Af Amer) BUN/Creatinine Ratio (10-20) Glucose (70-99) mg/dl Lactate (0.4-2.0) mmol/L Calcium (8.5-10.1) mg/dl Total Bilirubin (0.2-1) mg/dl AST (15-37) U/L ALT (12-78) U/L Alkaline Phosphatase (45-117) U/L Troponin I (0-0.045) ng/ml Total Protein (6.4-8.2) gm/dl Albumin (3.4-5.0) gm/dl Globulin (2.5-4.0) gm/dl Albumin/Globulin Ratio (0.9-2) Lipase (73-393) U/L Urine Color Urine Appearance (Clear) Urine pH (4.5-7.5) Ur Specific [place] (1.000-1.030) Urine Protein (Negative) Urine Glucose (UA) (Negative) Urine Ketones (Negative) Urine Blood (Negative) Urine Nitrite (Negative) Urine Bilirubin (Negative) Urine Urobilinogen (Negative) Ur Leukocyte Esterase (Negative) Urine WBC (Auto) (0-5) /hpf Urine RBC (Auto) (0-4) /hpf U Hyaline Cast (Auto) (0-5) /lpf U Epithel Cells (Auto) (0-5) /lpf Urine Bacteria (Auto) (Negative) COVID-19 Eval Order Covid19 IDNow atMVTC SARS-CoV-2, RNA, NAAT Cancelled NEGATIVE (NEGATIVE) 05/17/20 05/17/20 05/17/20 Range/Units 18:30 18:01 17:00 WBC 8.04 (4.8-10.8) K/uL RBC 4.98 (4.2-5.4) M/uL Hgb 14.5 (12.0-16.0) g/dL Hct 44.4 (37-47) % MCV 89.2 (80-100) fL MCH 29.1 (25-34) pg MCHC 32.7 (32-36) g/dL RDW Std Deviation 43.0 (36.4-46.3) fL RDW Coeff of Lizette 13.1 (11.5-14.5) % Plt Count 297 (130-400) K/uL MPV 10.4 (7.4-10.4) fL Immature Gran % (Auto) 0.4 % Neut % (Auto) 54.3 % Lymph % (Auto) 38.1 % [place] % (Auto) 5.3 % Eos % (Auto) 1.7 % Baso % (Auto) 0.2 % Neut # (Auto) 4.36 (1.4-6.5) K/uL Lymph # (Auto) 3.06 (1.2-3.4) K/uL [place] # (Auto) 0.43 (0.11-0.59) K/uL Eos # (Auto) 0.14 (0-0.5) K/uL Baso # (Auto) 0.02 (0-0.2) K/uL Immature Gran # (Auto) 0.03 H (0.00-0.02) K/uL PT (9.0-12.0) Seconds INR (0.9-1.1) Sodium (136-145) mmol/L Potassium (3.5-5.1) mmol/L Chloride (98-107) mmol/L Carbon Dioxide (21-32) mmol/L Anion Gap (3-11) BUN (7-18) mg/dl Creatinine (0.6-1.2) mg/dl Est Cr Clr Drug Dosing ml/min Est GFR ( Amer) Est GFR (Non-Af Amer) BUN/Creatinine Ratio (10-20) Glucose (70-99) mg/dl Lactate 0.9 (0.4-2.0) mmol/L Calcium (8.5-10.1) mg/dl Total Bilirubin (0.2-1) mg/dl AST (15-37) U/L ALT (12-78) U/L Alkaline Phosphatase (45-117) U/L Troponin I (0-0.045) ng/ml Total Protein (6.4-8.2) gm/dl Albumin (3.4-5.0) gm/dl Globulin (2.5-4.0) gm/dl Albumin/Globulin Ratio (0.9-2) Lipase (73-393) U/L Urine Color Yellow Urine Appearance Clear (Clear) Urine pH 6.5 (4.5-7.5) Ur Specific [place] 1.010 (1.000-1.030) Urine Protein Negative (Negative) Urine Glucose (UA) Negative (Negative) Urine Ketones 1+ H (Negative) Urine Blood Negative (Negative) Urine Nitrite Negative (Negative) Urine Bilirubin Negative (Negative) Urine Urobilinogen Positive H (Negative) Ur Leukocyte Esterase Trace H (Negative) Urine WBC (Auto) 1-5 (0-5) /hpf Urine RBC (Auto) 0-4 (0-4) /hpf U Hyaline Cast (Auto) 0 (0-5) /lpf U Epithel Cells (Auto) 10-20 H (0-5) /lpf Urine Bacteria (Auto) Negative (Negative) COVID-19 Eval Order SARS-CoV-2, RNA, NAAT (NEGATIVE) 05/17/20 Range/Units 17:00 WBC (4.8-10.8) K/uL RBC (4.2-5.4) M/uL Hgb (12.0-16.0) g/dL Hct (37-47) % MCV (80-100) fL MCH (25-34) pg MCHC (32-36) g/dL RDW Std Deviation (36.4-46.3) fL RDW Coeff of Lizette (11.5-14.5) % Plt Count (130-400) K/uL MPV (7.4-10.4) fL Immature Gran % (Auto) % Neut % (Auto) % Lymph % (Auto) % [place] % (Auto) % Eos % (Auto) % Baso % (Auto) % Neut # (Auto) (1.4-6.5) K/uL Lymph # (Auto) (1.2-3.4) K/uL [place] # (Auto) (0.11-0.59) K/uL Eos # (Auto) (0-0.5) K/uL Baso # (Auto) (0-0.2) K/uL Immature Gran # (Auto) (0.00-0.02) K/uL PT (9.0-12.0) Seconds INR (0.9-1.1) Sodium 140 (136-145) mmol/L Potassium 3.7 (3.5-5.1) mmol/L Chloride 108 H (98-107) mmol/L Carbon Dioxide 27 (21-32) mmol/L Anion Gap 5.0 (3-11) BUN 11 (7-18) mg/dl Creatinine 0.77 (0.6-1.2) mg/dl Est Cr Clr Drug Dosing 76.9 ml/min Est GFR ( Amer) 90.7 Est GFR (Non-Af Amer) 78.2 BUN/Creatinine Ratio 14.8 (10-20) Glucose 126 H (70-99) mg/dl Lactate (0.4-2.0) mmol/L Calcium 9.2 (8.5-10.1) mg/dl Total Bilirubin 1.3 H (0.2-1) mg/dl AST 119 H (15-37) U/L ALT 52 (12-78) U/L Alkaline Phosphatase 164 H (45-117) U/L Troponin I < 0.015 (0-0.045) ng/ml Total Protein 7.9 (6.4-8.2) gm/dl Albumin 3.7 (3.4-5.0) gm/dl Globulin 4.2 H (2.5-4.0) gm/dl Albumin/Globulin Ratio 0.9 (0.9-2) Lipase 76 (73-393) U/L Urine Color Urine Appearance (Clear) Urine pH (4.5-7.5) Ur Specific [place] (1.000-1.030) Urine Protein (Negative) Urine Glucose (UA) (Negative) Urine Ketones (Negative) Urine Blood (Negative) Urine Nitrite (Negative) Urine Bilirubin (Negative) Urine Urobilinogen (Negative) Ur Leukocyte Esterase (Negative) Urine WBC (Auto) (0-5) /hpf Urine RBC (Auto) (0-4) /hpf U Hyaline Cast (Auto) (0-5) /lpf U Epithel Cells (Auto) (0-5) /lpf Urine Bacteria (Auto) (Negative) COVID-19 Eval Order SARS-CoV-2, RNA, NAAT (NEGATIVE)
[2020-05-18] MEDS ORDERED: BUPIVACAINE 0.5 % 5 MG/1 ML MPF 30ML VIAL ONE (13:18)
[2020-05-18] MEDS ORDERED: MIDAZOLAM HCL 1 MG/ML 2ML VIAL ONE (13:19)
[2020-05-18] MEDS ORDERED: fentaNYL citrate 100 MCG/2 ML VIAL IV PRN (13:30)
[2020-05-18] MEDS ORDERED: ONDANSETRON INJ 2 MG/ML 2 ML VIAL IV PRN ×2 (13:30→18:06)
[2020-05-18] MEDS ORDERED: ePHEDrine sulfate 50 MG/ML AMP IV PRN (13:30)
[2020-05-18] MEDS ORDERED: HYDROmorphone INJ 2 MG/ML SYR/VIAL IV PRN (13:30)
[2020-05-18] MEDS ORDERED: ATROPINE SULFATE 0.1 MG/ML 10ML SYR IV PRN (13:30)
[2020-05-18] MEDS ORDERED: CEFAZOLIN 250 MG/ML 1 GM VIAL ONE (13:32)
[2020-05-18] MEDS ORDERED: HEPARIN (PORCINE) 1000 UNIT/ML 10 ML (CATH LAB USE ONLY) ONE (13:32)
--- NOTE | 2020-05-18 14:26 | GI REPORT ---
Patient Name: Iliana Winchester Procedure Date: 05/18/2020 1:54 PM Date of : 1950 Admit Type: Inpatient Age: 69 Gender: Female Attending MD: Krystian Marina DO Procedure: ERCP Providers: Krystian Marina DO Referring MD: Tomi Alcantara MD Indications: Abdominal pain of suspected biliary origin, Jaundice, Elevated liver enzymes Medicines: General Anesthesia Complications: No immediate complications. Estimated blood loss: Minimal. Estimated Blood Loss: Estimated blood loss was minimal. Procedure: Pre-Anesthesia Assessment: - Prior to the procedure, a History and Physical was performed, and patient medications, allergies and sensitivities were reviewed. The patient's tolerance of previous anesthesia was reviewed. - The risks and benefits of the procedure and the sedation options and risks were discussed with the patient. All questions were answered and informed consent was obtained. - Patient identification and proposed procedure were verified prior to the procedure by the physician, the nurse and the sanitation supervisor. The procedure was verified in the pre-procedure area in the procedure room. - Pre-procedure physical examination revealed no contraindications to sedation. - ASA Grade Assessment: III - A patient with severe systemic disease. - After reviewing the risks and benefits, the patient was deemed in satisfactory condition to undergo the procedure. - The anesthesia plan was to use general anesthesia. - Immediately prior to administration of medications, the patient was re-assessed for adequacy to receive sedatives. - The heart rate, respiratory rate, oxygen saturations, blood pressure, adequacy of pulmonary ventilation, and response to care were monitored throughout the procedure. - The physical status of the patient was re-assessed after the procedure. After obtaining informed consent, the scope was passed under direct vision. Throughout the procedure, the patient's blood pressure, pulse, and oxygen saturations were monitored continuously. The Scope was introduced through the mouth, and advanced to the duodenum and used to inject contrast into the bile duct. The ERCP was accomplished without difficulty. The patient tolerated the procedure well. Findings: The machine heel seat laster film was normal. The esophagus was successfully intubated under direct vision without detailed examination of the pharynx, larynx, and associated structures, and upper GI tract. The upper GI tract was grossly normal. The major papilla was congested. The total fluoroscopy exposure time was 44 seconds. The bile duct was deeply cannulated with the short-nosed traction sphincterotome (rx 39) and 0.025 in guidewire(PD not injected or cannulated). Contrast was injected. I personally interpreted the bile duct images. Contrast extended to the entire biliary tree. The biliary orifice was stenotic. This appeared benign. The lower third of the main bile duct and middle third of the main bile duct contained filling defect(s) thought to be a stone and sludge. Biliary sphincterotomy was made with a monofilament Dreamtome sphincterotome using ERBE electrocautery. There was no post-sphincterotomy bleeding. The biliary tree was swept with an 8.5 mm to 15 mm balloon starting at the bifurcation. Four stones were removed. No stones remained. Pus was swept from the duct. One 10 Fr by 8 cm biliary stent with a single external flap and a single internal flap was placed 8 cm into the common bile duct. Bile and pus flowed through the stent. The stent was in good position. The endoscope was withdrawn from the patient. Impression: - The major papilla appeared congested. - Biliary papillary stenosis, benign. - A filling defect consistent with a stone and sludge was seen on the cholangiogram. - Choledocholithiasis was found. Complete removal was accomplished by biliary sphincterotomy and balloon extraction. - The biliary tree was swept and pus was found. - One biliary stent was placed into the common bile duct. Recommendation: - Repeat ERCP in 6 weeks to remove stent. - No aspirin, ibuprofen, naproxen, or other non-steroidal anti-inflammatory drugs for 1 week. - Use broad spectrum antibiotics for 2 weeks. Krystian Marina D.O. Krystian Marina, 05/18/2020 2:26:29 PM This report has been signed electronically. Note Initiated On: 05/18/2020 1:54 PM Number of Addenda: 0 I attest to the content of the Intraoperative Record and orders documented therein, exceptions below {[id number]}
--- NOTE | 2020-05-18 14:27 | Post Operative Brief Note ---
Immediate Post Op Note v1 Date of Surgery May 18, 2020 Pre & Post Diagnosis Operation Date: 05/18/20 07:15 Pre-Op Diagnosis: Cholelithiasis and Cholecystitis Post-Op Diagnosis: Cholelithiasis and Cholecystitis Cholangitis Operation Date: 05/18/20 08:00 <No data on this case meets the specified criteria> I identified the patient and participated in the time-out.: Yes Procedure Operation Date: 05/18/20 07:15 Actual Procedures p Laparoscopic Cholecystectomy - Tomi Alcantara MD s Endoscopic Retrograde Cholangiopancreatography, Sphincterotomy, Extraction of Gallstones and Stent Placement - Krystian Marina Operation Date: 05/18/20 08:00 <No data on this case meets the specified criteria> Surgeon Krystian Marina Equipment Inspector none Estimated Blood Loss 0 (ERCP 0ml Dr. Marina) Findings Consistent with Post-Op Diagnosis
--- NOTE | 2020-05-18 14:35 | Fluoroscopy Report ---
[place] ERCP biliary ductal CLINICAL HISTORY: ERCP COMPARISON STUDY: Abdominal ultrasound 05/18/2020. FLUOROSCOPY TIME: 44 seconds. FINDINGS: 9 fluoroscopic spot images of the right upper quadrant. The ampulla was cannulated and cont rast was injected into the common bile duct. Multiple small filling defects consistent with stones. A balloon sweep was performed. This is followed by placement of a common bile duct stent which appears in good position. IMPRESSION: Fluoroscopy provided for ERCP as described above. ACT 112: Negative or not required by law. Electronically signed by: Oscar Maza M.D. 05/18/2020 2:34 PM
[2020-05-18] MEDS ORDERED: FLOSEAL HEMOSTATIC MATRIX 10ML TOP ONE (16:15)
[2020-05-18] MEDS ORDERED: KETOROLAC 30 MG/ML VIAL ONE (16:34)
--- NOTE | 2020-05-18 16:53 | Post Operative Brief Note ---
Immediate Post Op Note v1 Date of Surgery May 18, 2020 Pre & Post Diagnosis Operation Date: 05/18/20 07:15 Pre-Op Diagnosis: Cholelithiasis and Cholecystitis Post-Op Diagnosis: Cholelithiasis and Cholecystitis Cholangitis Operation Date: 05/18/20 08:00 <No data on this case meets the specified criteria> I identified the patient and participated in the time-out.: Yes Procedure Operation Date: 05/18/20 07:15 Actual Procedures p Laparoscopic Cholecystectomy - Tomi Alcantara MD s Endoscopic Retrograde Cholangiopancreatography, Sphincterotomy, Extraction of Gallstones and Stent Placement - Krystian Marina Operation Date: 05/18/20 08:00 <No data on this case meets the specified criteria> Surgeon Tomi Alcantara MD Transportation Supervisor none Estimated Blood Loss 0 (ERCP 0ml Dr. Marina) Findings Consistent with Post-Op Diagnosis Drains Virgil-Rios Drain (10mm flat)
--- NOTE | 2020-05-18 17:30 | Anesthesiology Progress Note ---
Date of Service May 18, 2020 Anesthesia Post Procedure Vital Signs Vital Signs: Temp Pulse Pulse Pulse Resp BP BP 05/18/20 17:20 57 L 16 156/84 H 05/18/20 17:10 63 17 127/78 05/18/20 17:03 36.1 C L 65 17 172/91 H 05/18/20 12:44 36.8 C 61 18 157/75 H 05/18/20 07:30 36.7 C 75 18 146/79 H 05/17/20 23:45 05/17/20 22:30 36.8 C 0 L 16 145/83 H 05/17/20 21:30 48 L 17 172/69 H 05/17/20 21:00 55 L 17 171/79 H 05/17/20 20:31 46 L 13 174/79 H 05/17/20 20:00 51 L 17 159/76 H 05/17/20 19:31 53 L 14 178/79 H 05/17/20 19:00 52 L 18 181/84 H 05/17/20 18:30 47 L 19 184/75 H 05/17/20 18:01 45 L 13 166/81 H Pulse Ox Pulse Ox 05/18/20 17:20 96 05/18/20 17:10 95 05/18/20 17:03 94 05/18/20 12:44 95 05/18/20 07:30 92 05/17/20 23:45 94 05/17/20 22:30 94 05/17/20 21:30 96 05/17/20 21:00 97 05/17/20 20:31 96 05/17/20 20:00 97 05/17/20 19:31 97 05/17/20 19:00 97 05/17/20 18:30 97 05/17/20 18:01 96 Pain Intensity Abdomen: Pain Intensity: 2 Transfer of Care Handoff Completed per policy Notes Mental Status: alert / awake / arousable Patient Amnestic to Procedure: Yes Nausea / Vomiting: adequately controlled Pain: adequately controlled Airway Patency, RR, SpO2: stable & adequate BP & HR: stable & adequate Hydration State: stable & adequate Anesthetic Complications: no major complications apparent
[2020-05-18] MEDS ORDERED: OXYCODONE/ACETAMINOPHEN 5mg/325mg TAB PO PRN (18:06)
--- NOTE | 2020-05-18 18:29 | Consultation ---
Date of Consultation May 18, 2020 Assessment & Plan (1) Hypertension: 69 year-old female with diet-controlled hypertension and ORION and tolerant to CPAP. Postoperatively patient hypertensive and received IV labetalol in PACU. Upon examination BP 175/92 with complaints of significant pain. She does follow [facility] cardiology secondary to HTN, mild bilateral internal carotid disease, aortic sclerosis and mild mitral regurg. In the past she had been started on oral lisinopril, but did not tolerate Her BP is controlled with diet and lifestyle modification at outpt, reviewed in pt BP which have been labile pre and post op Will place order for as needed hydralazine if SBP greater than 180 Monitor BP during hospital stay, consider low-dose oral hypertensive if persistently high In meantime control pain (2) Acute cholecystitis: (3) Choledocholithiasis: Cholangitis s/p laparoscopic cholecystectomy S/P ERCP with sphincterotomy, stone extraction and stent placement with eventual laparoscopic cholecystectomy Gastroenterology and general surgery on board LFTs significantly elevated total bili 3.2, AST 672, ALT 385, alk phos 220 Upper GI continue antibiotics x2 weeks, follow-up ERCP in 6 weeks with stent removal Continue IV antibiotics Diet per GI (4) Sleep apnea: intolerant to CPAP (5) DVT prophylaxis: SCD/TEDS Disposition: per primary Follow up: PCP Dr. Jackson upon discharge Pt was seen and examined in collaboration with Dr. Kaye, please see addendum Starting 05/19/2020 pt will be under the care of Dr. Gill Thank you for this consultation. We will follow the patient with you during their hospital stay. You can reach a member of the [facility]ist Team 09/03 via pager @ [phone]. Supervising Physician Co-Signing Physician Notes I, Dr. Ferreira have seen and examined the patient with physician bilingual sales assistant that on physical exam General/Neuro: patient returned to [facility]U around 15 minutes ago, moves all extremities, reports of pain of abdomen Lungs: no wheezing, no crackles Heart: regular rate Abdomen: soft, dressings over the laproscopic incisions, there is a CYRUS drain from right side of abdomen with blood Assessment and Plan -This is a patient under primary general surgery service with diagnosis of Cholelithiasis and Cholecystitis, Cholangitis and on 05/18/2020 is by s/p Laparoscopic Cholecystectomy by surgeon Dr. Tomi Alcantara and s/p Endoscopic Retrograde Cholangiopancreatography, Sphincterotomy, Extraction of Gallstones and Stent Placement by gastroenterology Dr. Krystian Marina -patient with some abdominal discomfort; elevated blood pressure likely from pain. Will need prn pain medications after these operations -recheck CBC and comprehensive metabolic panel and follow the bilirubin and LFTs, blood cultures to be drawn and switch the IV antibiotics from IV Cefoxitin to IV Zosyn -My colleague Dr. Gill will be the consult medicine attending physician starting on 05/19/2020 History of Present Illness Requesting Physician: Dr. Gambino Reason for Consultation: Post op medical management/HTN management Attending Physician: Tomi Alcantara MD History of Present Illness This is a 69-year-old female with significant past medical history of HTN and ORION who presented to [facility] secondary to abdominal pain and elevated LFTs yesterday. She was subsequently found to have acute cholecystitis and likely choledocholithiasis. She underwent ERCP and laparoscopic cholecystectomy this afternoon. We have been consulted for postoperative medical management hypertensive management. She does have history of hypertension at baseline but does not take any oral antihypertensives. She otherwise denies any medical problems. History is limited as she just returned from PACU and is drowsy. She is also complaining of significant amount of abdominal and incisional pain. ROS limited at this time. Nurse at bedside who was caring for patient prior to procedure states that her blood pressures have been mildly elevated since admission. She did receive 10 mg of IV labetalol in PACU. I did speak with surgery Dr. Gambino who requested our services throughout the weekend for hypertensive management. She denies any tobacco or alcohol use. Allergies Allergy/AdvReac Type Severity Reaction Status Date / Time No Known Drug Allergies Allergy Unknown . Verified 05/17/20 20:15 Home Medications Home Medications Medication Instructions Recorded Confirmed Type activated charcoal [Charcoal] 0 mg PO UD PRN 05/17/20 05/17/20 History ascorbic acid (vitamin C) [Vitamin 1,000 mg PO BID 05/17/20 05/17/20 History C] cholecalciferol (vitamin D3) 150 - 200 mcg PO DAILY 05/17/20 05/17/20 History [Vitamin D3] vitamin E 0 unit PO DAILY 05/17/20 05/17/20 History oxycodone-acetaminophen [Percocet] 1 tab PO Q6H PRN #5 tab 05/18/20 Rx Patient History Medical History (Updated 05/18/20 @ 18:34 by Corie Antoine PA-C) Hypertension Sleep apnea Surgical History (Updated 05/18/20 @ 18:29 by Corie Antoine PA-C) deliv NOS-unsp H/O cataract extraction Family History Mother CHF (congestive heart failure) Hypertension Diabetes Social History (Updated 05/18/20 @ 18:29 by Corie Antoine PA-C) Smoking Status: Never smoker Hx Alcohol Use: No Hx Substance Use: No Preferred Language: Iraqi Communication Ability: Effective Engineer Byproduct Required: No Beliefs That Will Affect Care: Cultural marital status: Single Current Living Situation: Alone Other Information That Helps Us Care for You: No Feels Safe at Home: Yes Safety Concerns: Feels Safe At This Time Assistive Devices: None Review of Systems Review of Systems: All systems reviewed & are unremarkable except as noted in HPI & below Physical Exam Physical Exam: Constitutional: WD/WN, drowsy, vitals as above, moaning of pain, sitting up in bed, answers questions but drowsy Head: Normocephalic, Atraumatic Eyes: conjunctivae normal, anicteric sclerae ENMT: external ear and nose normal, oropharynx normal Neck: trachea midline, no thyromegaly normal visual inspection Respiratory: normal respiratory effort, lungs clear to auscultation, no wheeze, rales, rhonchi. Normal insp/exp effort, no accessory muscle use Cardiovascular: RRR, no murmur, no edema SCD/TEDS in place. Vessels: no JVD or carotid bruit Chest: normal inspection of chest Abdomen: obese abd, dressing cdi x1, CYRUS drain intact, palpation not performed due to post op state, soft appearance, Musculoskeletal: no cyanosis or clubbing, active ROM x 4 Skin: no rashes, warm and dry normal turgor Neurologic: no face palsy, no dysarthria CN's II-XI intact bilaterally and moves all extremities Psychiatric: A+Ox3 but drowsy, euthymic affect : deferred Results & Data ([facility]) Vital Signs (Past 12 Hours) Vital Signs Temp Pulse Pulse Resp BP Pulse Ox 05/18/20 18:00 36.5 C 61 18 177/95 H 95 05/18/20 17:40 36.3 C L 61 18 166/89 H 95 05/18/20 17:30 59 L 17 161/82 H 97 05/18/20 17:20 57 L 16 156/84 H 96 05/18/20 17:10 63 17 127/78 95 05/18/20 17:03 36.1 C L 65 17 172/91 H 94 05/18/20 12:44 36.8 C 61 18 157/75 H 95 05/18/20 07:30 36.7 C 75 18 146/79 H 92 Laboratory Results Short CBC 05/17/20 05/18/20 05/18/20 Range/Units 17:00 06:59 06:59 WBC 6.99 (4.8-10.8) K/uL Hgb 13.8 (12.0-16.0) g/dL Hct 40.5 (37-47) % Plt Count 251 (130-400) K/uL Total Bilirubin 1.3 H 3.2 H D (0.2-1) mg/dl AST 119 H 672 H (15-37) U/L BMP 05/18/20 06:59 Sodium 144 Potassium 3.8 Chloride 111 H Carbon Dioxide 27 BUN 9 Creatinine 0.97 Glucose 106 H Calcium 9.1 Liver Function 05/18/20 Range/Units 06:59 Total Bilirubin 3.2 H D (0.2-1) mg/dl AST 672 H (15-37) U/L ALT 385 H (12-78) U/L Alkaline Phosphatase 220 H (45-117) U/L Albumin 3.1 L (3.4-5.0) gm/dl Urine 05/17/20 Range/Units 18:30 Urine Color Yellow Urine Appearance Clear (Clear) Urine pH 6.5 (4.5-7.5) Ur Specific [place] 1.010 (1.000-1.030) Urine Protein Negative (Negative) Urine Glucose (UA) Negative (Negative) Diagnostic Findings ERCP: Impression: - The major papilla appeared congested. - Biliary papillary stenosis, benign. - A filling defect consistent with a stone and sludge was seen on the cholangiogram. - Choledocholithiasis was found. Complete removal was accomplished by biliary sphincterotomy and balloon extraction. - The biliary tree was swept and pus was found. - One biliary stent was placed into the common bile duct. Recommendation: - Repeat ERCP in 6 weeks to remove stent. - No aspirin, ibuprofen, naproxen, or other non-steroidal anti-inflammatory drugs for 1 week. - Use broad spectrum antibiotics for 2 weeks. abd U/S: IMPRESSION: 1. The gallbladder is filled with stones and sludge. The gallbladder wall is top normal in thickness and a sonographic Aguilar's sign could not be assessed. The CT findings remain highly concerning for acute cholecystitis. If this does not fit the clinical presentation a nuclear hepatobiliary scan could be considered to assess for patency of the cystic duct. 2. The common bile duct measures up to 8 mm. 3. The pancreas was not visualized due to overlying bowel gas. Abd CTA: IMPRESSION: 1. Diffusely thick-walled gallbladder with mild surrounding inflammatory change. This likely represents acute cholecystitis. 2. No significant stenosis or occlusion within the celiac or mesenteric arteries. 3. No bowel wall thickening or obstruction. 4. Normal appendix. 5. A 1 cm right renal angiomyolipoma. Medications Administered Potassium Chloride 10 meq/ (Sodium Chloride) 1,005 mls @ 100 mls/hr IV .Q10H3M PAT Stop: 06/16/20 22:57 Last Infusion: 05/18/20 18:29 Dose: 100 mls/hr Documented by: [id number] Infusion: 05/18/20 12:11 Dose: 0 mls/hr Documented by: [id number] Admin: 05/18/20 10:53 Dose: 100 mls/hr Documented by: [id number] Infusion: 05/18/20 10:30 Dose: 100 mls/hr Documented by: [id number] Infusion: 05/18/20 06:07 Dose: 100 mls/hr Documented by: [id number] Infusion: 05/18/20 05:26 Dose: 0 mls/hr Documented by: [id number] Admin: 05/17/20 23:46 Dose: 100 mls/hr Documented by: [id number] Cefoxitin Sodium 1,000 mg/ (Dextrose) 60 mls @ 100 mls/hr IV Q6H PAT Stop: 05/27/20 22:59 Last Admin: 05/18/20 18:30 Dose: 100 mls/hr Documented by: [id number] Infusion: 05/18/20 11:42 Dose: 0 mls/hr Documented by: [id number] Admin: 05/18/20 10:53 Dose: 100 mls/hr Documented by: [id number] Infusion: 05/18/20 06:07 Dose: 0 mls/hr Documented by: [id number] Admin: 05/18/20 05:24 Dose: 100 mls/hr Documented by: [id number] Infusion: 05/18/20 00:25 Dose: 0 mls/hr Documented by: [id number] Admin: 05/17/20 23:46 Dose: 100 mls/hr Documented by: [id number] Discontinued Medications Bupivacaine HCl (Bupivacaine 0.5 % 5 Mg/1 Ml Mpf 30ml Vial) Confirm Administered Dose 30 ml .ROUTE .STK-MED ONE Stop: 05/18/20 13:19 Last Admin: 05/18/20 16:44 Dose: 30 ml Documented by: [id number] Cefazolin Sodium (Cefazolin 250 Mg/Ml 1 Gm Vial) Confirm Administered Dose 1,000 mg .ROUTE .STK-MED ONE Stop: 05/18/20 13:33 Last Admin: 05/18/20 15:36 Dose: 1,000 mg Documented by: [id number] Heparin Sodium (Porcine) (Heparin (Porcine) 1000 Unit/Ml 10 Ml (Racing Board Marker Use Only)) Confirm Administered Dose 10,000 units .ROUTE .STK-MED ONE Stop: 05/18/20 13:33 Last Admin: 05/18/20 15:36 Dose: 5,000 units Documented by: [id number] Indomethacin (Indomethacin 50 Mg Supp) 100 mg RI ONCE ONE Stop: 05/18/20 12:35 Last Admin: 05/18/20 14:20 Dose: 100 mg Documented by: [id number] Ioversol (Optiray 320 125ml) 119 ml IV ONCE ONE Stop: 05/17/20 18:49 Last Admin: 05/17/20 18:48 Dose: 119 ml Documented by: [id number] Miscellaneous ( Floseal Hemostatic Matrix 10ml) 10 ml TOP ONCE ONE Stop: 05/18/20 16:16 Last Admin: 05/18/20 16:16 Dose: 10 ml Documented by: [id number] Morphine Sulfate (Morphine Sulfate 2 Mg/Ml Carp) Confirm Administered Dose 2 mg .ROUTE .STK-MED ONE Stop: 05/17/20 21:04 Last Admin: 05/17/20 21:06 Dose: 2 mg Documented by: [id number] Morphine Sulfate (Morphine Sulfate 2 Mg/Ml Carp) 2 mg IV Q2H PRN PRN Reason: Pain Stop: 05/31/20 23:05 Last Admin: 05/18/20 06:34 Dose: 2 mg Documented by: [id number] Admin: 05/18/20 01:53 Dose: 2 mg Documented by: [id number] Ondansetron HCl (Ondansetron Inj 2 Mg/Ml 2 Ml Vial) Confirm Administered Dose 4 mg .ROUTE .STK-MED ONE Stop: 05/17/20 21:04 Last Admin: 05/17/20 21:06 Dose: 4 mg Documented by: [id number] ECG Rate (beats per minute): 45 Rhythm: sinus bradycardia
[2020-05-18] MEDS ORDERED: HydrALAZINE HCL 20 MG/ML VIAL IV PRN (18:42)
[2020-05-18] MEDS ORDERED: PIPERACILL/TAZOBAC CONSULT ACTIVE PRN (18:44)
[2020-05-18 19:06] LABS: Basophils # (auto) 0.01 K/uL (0-0.2); Basophils % (auto) 0.1 %; Eosinophils # (auto) 0.02 K/uL (0-0.5); Eosinophils % (auto) 0.2 %; Hematocrit (blood only) 41.6 % (37-47); Hemoglobin 14.3 g/dL (12.0-16.0); Immature Granulocytes # (auto) 0.06 K/uL (0.00-0.02); Immature Granulocytes % (auto) 0.7 %; Lymphocytes % (auto) 11.1 %; Mean Corpuscular Hemoglobin 30.8 pg (25-34); Mean Corpuscular Volume 89.5 fL (80-100); Mean Platelet Volume 9.7 fL (7.4-10.4); Monocytes # (auto) 0.11 K/uL (0.11-0.59); Monocytes % (auto) 1.2 %; Neutrophils % (auto) 86.7 %; Platelet Count 236 K/uL (130-400); RDW Coefficient of Variation 13.4 % (11.5-14.5); RDW Standard Deviation 43.7 fL (36.4-46.3); Red Blood Count 4.65 M/uL (4.2-5.4)
[2020-05-18 19:09] LABS: Mean Corpuscular Hgb Conc 34.4 g/dL (32-36)
[2020-05-18] MEDS ORDERED: PIPERACILLIN/TAZOBACTAM 3.375 GM in DEXTROSE 5% 100 ML IV SCH (19:15)
[2020-05-18 19:33] LABS: Albumin Level 3.2 gm/dl (3.4-5.0); BUN Creatinine Ratio 7.5 (10-20); Calcium 8.8 mg/dl (8.5-10.1); Creatinine Clr Calc Pharmacy 61.1 ml/min; Est GFR (African American) 70.3; Est GFR (Non-African American) 60.7; Potassium 3.8 mmol/L (3.5-5.1)
[2020-05-18 19:36] LABS: Albumin Globulin Ratio 0.8 (0.9-2); Bilirubin,Total 5.7 mg/dl (0.2-1); Total Protein 7.2 gm/dl (6.4-8.2)
[2020-05-18] MEDS: MoRPHine SULFATE 4 MG/ML 1 ML CARP\\VIAL IV PRN ×2 (20:15→23:50)
--- NOTE | 2020-05-18 22:08 | Electrocardiogram Report ---
Test Reason : Blood Pressure : / mmHG Vent. Rate : 045 BPM Atrial Rate : 045 BPM P-R Int : 130 ms QRS Dur : 112 ms QT Int : 490 ms P-R-T Axes : 019 -10 032 degrees QTc Int : 423 ms Sinus bradycardia Otherwise normal ECG No previous ECGs available Confirmed by Sae Fagan ([id number]) on 05/18/2020 10:07:43 PM Referred By: REFERRED SELF Confirmed By:Sae Fagan
[2020-05-18] MEDS: PIPERACILLIN/TAZOBACTAM 3.375 GM in DEXTROSE 5% 100 ML IV SCH (23:50)
--- NOTE | 2020-05-19 01:54 | Operative Report (OR) ---
DATE OF OPERATION: 05/18/2020 PREOPERATIVE DIAGNOSES: Cholelithiasis, cholecystitis, history of choledocholithiasis. POSTOPERATIVE DIAGNOSES: Acute cholecystitis, cholelithiasis. PROCEDURE: Laparoscopic cholecystectomy. SURGEON: Tomi Alcantara MD. FINDINGS: The gallbladder wall was markedly thickened. The surrounding peritoneum and connective tissue was also edematous and quite thickened and attached densely to the cystic duct and surrounding structures. There were adhesions to the gallbladder along its entire length. The gallbladder was densely adherent to the liver with no good identifiable plane of dissection. The patient had multiple gallstones within the lumen of the gallbladder. The liver was of normal size and contour. The cystic duct was dilated. She had an ERCP prior to the cholecystectomy. TECHNIQUE: The patient was given a general anesthetic and the area was prepped and draped in the usual sterile fashion. The skin and subcutaneous tissue inferior to the umbilicus was anesthetized with 1% Xylocaine with epinephrine. Skin incision was made, carried down through the subcutaneous tissue to the fascia which was grasped with 2 Dionne clamps and incised between. The peritoneum was identified, incised, and the introducer was placed bluntly. The abdomen was then insufflated to a pressure of 15 mmHg with carbon dioxide. The sites for the upper midline, midclavicular and anterior axillary introducers were chosen and the skin in layers were anesthetized with the same local. Skin incisions were made and the introducers were placed under direct vision. Traction was placed on the gallbladder, which was difficult to grab as it had multiple stones and the wall was thickened, but we were able to grab it, place upward anterior traction and the adhesions were taken down using blunt cautery dissection where appropriate. Further dissection was carried down along the lateral aspect of the gallbladder, which was adherent to the liver. Once those adhesions were taken down and the liver fell away, I could identify the lateral wall of the gallbladder and worked inferiorly. I did go very carefully as the peritoneum was quite thickened and it was difficult to discern peritoneum from the gallbladder wall, but I was eventually able to establish a plane along the inferior aspect of the infundibulum and neck of the gallbladder and was able to place lateral traction. I then opened the peritoneum over the anterior surface of the infundibulum and peeled it towards the common bile duct and opened into the triangle of Calot. I was ____ to identify the cystic duct. It required careful meticulous almost millimeter by millimeter dissection along the medial wall to divide the thickened peritoneum and connective tissue, but that was able to be accomplished. The gallbladder was dissected away from the liver on the lateral and medial sides in the triangle of Calot, which allowed for better mobility. I then was able to dissect the thickened tissues away from the medial wall of the cystic duct and elevate the infundibulum and neck of the gallbladder and dissect posteriorly to that creating a good window. I then dissected the additional gallbladder away dividing the thickened peritoneum where on the lateral side when I encountered some small arterial vessels and those were controlled with clips. That allowed for a better window. I was able to identify the cystic duct gallbladder junction. Two large clips were placed on the proximal cystic duct, one near the junction with the gallbladder and it was divided. That head was elevated and I performed further dissection posterior to that and on the medial side near the triangle of Calot and identified another branch of the cystic artery, which was very small. This was clamped and divided. The gallbladder was then peeled off the liver bed. There was not a good plane of dissection. At one point, I opened the gallbladder began to leave the back wall, which I did not want to do. I then worked on the dome of the gallbladder and peeled it away from the liver then used a dome down technique to stay between the gallbladder and the liver and was able to resect the entire wall, but that required meticulous dissection as well as there again was no plane that was easily identifiable, but eventually the entire gallbladder was . There was spillage of some stones. I placed the gallbladder in Endobag and placed some of the loose stones in the Endobag and brought out through the upper midline incision where I had to increase the size of the skin incision and fascial opening in order to extract within the gallbladder, but that was removed. That introducer was replaced. The liver edge was elevated. There were multiple stones in the subhepatic space that were removed using the stone retrieval cup like grasper This was then irrigated and as more stones were revealed, they were removed. I removed all of the stones from the subhepatic space. That space was again irrigated and the irrigation was removed. The gallbladder bed of the liver was inspected and there was no bleeding. The subdiaphragmatic space was irrigated and the irrigation was removed and that was repeated until the return was clear. The gallbladder bed of the liver was again inspected and there was no bleeding and the previously placed clips were intact. Because of the raw surface in the gallbladder bed of the liver, I placed 10 mL of FloSeal. I then brought a flat Virgil-Rios drain out through the anterior axillary introducer site and secured it with a 3-0 nylon and placed in the subhepatic space. The liver was allowed to fall back into its anatomic position and the gas was allowed to escape. The introducers were removed. The fascia of the umbilical and upper midline introducer sites was closed with interrupted 0 Vicryl and the skin of all the incisions was closed with 4-0 Monocryl in either an interrupted or running subcuticular fashion. Skin was further anesthetized with that same local. The skin was cleansed, dried, benzoin placed, Steri-Strips applied and dressings placed. Estimated blood loss was 30 mL. Sponge, needle and instrument counts were correct prior to closure. The patient tolerated the surgical procedure without complication and was transferred to recovery. I attest to the content of the Intraoperative Record and any orders documented therein. Any exception s are noted below.
[2020-05-19] MEDS: POTASSIUM CHLORIDE 10 MEQ in SODIUM CHLORIDE 0.9% 1000ML 1,000 ML IV SCH ×2 (02:55→14:29)
[2020-05-19] MEDS: MoRPHine SULFATE 4 MG/ML 1 ML CARP\\VIAL IV PRN (04:42)
--- NOTE | 2020-05-19 08:02 | Surgery Progress Note ---
Date of Service May 19, 2020 Assessment & Plan (1) History of laparoscopic cholecystectomy: Also status post ERCP with stent placement Patient seems to be doing well this morning she does have a CYRUS drain in place She is tolerating liquids We will continue IV antibiotics Continue supportive care Admission and Anticipated Discharge Date Admission Date: May 17, 2020 Results & Data ([facility] Vital Signs (Past 12 Hours) Vital Signs Temp Pulse Resp BP Pulse Ox Pulse Ox 05/19/20 07:06 36.6 C 50 L 16 129/70 95 05/19/20 04:35 36.4 C L 41 L 18 148/81 H 97 05/18/20 23:30 36.6 C 50 L 20 173/78 H 98 98 05/18/20 21:00 36.6 C 73 16 165/99 H 98 05/18/20 20:04 36.5 C 47 L 16 166/84 H 99 PG Care Time/CCT Total # of Minutes Spent Total Time Spent with Patient: Total time spent is greater than 50% in coordination of care (as documented) at patient's floor/unit and/or counseling patient: Coding Level of Care Code None Diagnoses History of laparoscopic cholecystectomy Z90.49
[2020-05-19] MEDS: PIPERACILLIN/TAZOBACTAM 3.375 GM in DEXTROSE 5% 100 ML IV SCH (09:01)
[2020-05-19] MEDS ORDERED: IBUPROFEN 200 MG TAB PO PRN (09:13)
[2020-05-19] MEDS: KETOROLAC TROMETHAMINE 15 MG/ML VIAL IV PRN (09:49)
[2020-05-19] MEDS: PANTOprazole 40 MG TAB PO SCH (09:55)
[2020-05-19 10:25] LABS: BUN Creatinine Ratio 7.8 (10-20); Calcium 8.3 mg/dl (8.5-10.1); Creatinine Clr Calc Pharmacy 69.1 ml/min; Est GFR (African American) 81.6; Est GFR (Non-African American) 70.4; Potassium 3.8 mmol/L (3.5-5.1)
[2020-05-19 10:39] LABS: Albumin Globulin Ratio 0.8 (0.9-2); Bilirubin,Total 2.3 mg/dl (0.2-1); Globulin 3.9 gm/dl (2.5-4.0); Total Protein 6.9 gm/dl (6.4-8.2)
[2020-05-19] MEDS: OXYCODONE/ACETAMINOPHEN 5mg/325mg TAB PO PRN ×3 (12:31→19:58)
[2020-05-19] MEDS: PIPERACILLIN/TAZOBACTAM 4.5 GM in DEXTROSE 5% 100 ML IV SCH ×2 (17:01→23:19)
--- NOTE | 2020-05-19 17:25 | Hospitalist Progress Note ---
Date of Service May 19, 2020 Assessment & Plan (1) Hypertension: Upon examination BP 175/92 with complaints of significant pain. BP improved to 125/71 cont to monitor (2) Acute cholecystitis: (3) Choledocholithiasis: Cholangitis s/p laparoscopic cholecystectomy S/P ERCP with sphincterotomy, stone extraction and stent placement with eventual laparoscopic cholecystectomy Gastroenterology and general surgery on board LFTs has improved post surgery Upper GI continue antibiotics x2 weeks, follow-up ERCP in 6 weeks with stent removal Continue IV antibiotics on clear liquid diet tolerating well (4) Sleep apnea: intolerant to CPAP (5) DVT prophylaxis: SCD/TEDS Disposition: per primary Follow up: PCP Dr. Jackson upon discharge Thank you for this consultation. We will follow the patient with you during their hospital stay. You can reach a member of the [facility] Hospitalist Team 09/03 via pager @ [phone]. Admission and Anticipated Discharge Date Admission Date: May 17, 2020 Subjective has minimum pain on rt upper quadrant no fever or chills tolerating clears , wants to have diet advanced if possible Review of Systems Review of Systems: All systems reviewed & are unremarkable except as noted in HPI & below Physical Exam Constitutional: WD/WN, vitals as above + obese Eyes: PERRL, conjunctivae normal, anicteric sclerae ENMT: external ear and nose normal, oropharynx normal Neck: trachea midline, no thyromegaly Respiratory: normal respiratory effort, lungs clear to auscultation Cardiovascular: RRR, no murmur, no edema Gastrointestinal (Abdomen): Percussion/Palpation: abdomen soft right upper quadrant bandage and CYRUS drain -minimum serosanguinous drainage Musculoskeletal: no cyanosis or clubbing, extremities motor strength 5/5 Skin: no rashes, warm and dry Neurologic: PERRL, EOMI, accommodation nl, no face palsy, no dysarthria Psychiatric: A+Ox3, euthymic affect Results & Data Results & Data ([facility]) Vital Signs (Past 12 Hours) Vital Signs Temp Pulse Resp BP Pulse Ox 05/19/20 15:19 37.1 C 47 L 16 125/71 94 05/19/20 12:33 36.6 C 53 L 16 131/74 96 05/19/20 07:06 36.6 C 50 L 16 129/70 95
[2020-05-19] MEDS: VITAMIN B COMPLEX TAB PO SCH (17:49)
[2020-05-19] MEDS: ASCORBIC ACID 500 MG TAB PO SCH (17:49)
[2020-05-20] MEDS: POTASSIUM CHLORIDE 10 MEQ in SODIUM CHLORIDE 0.9% 1000ML 1,000 ML IV SCH (02:28)
[2020-05-20] MEDS: KETOROLAC TROMETHAMINE 15 MG/ML VIAL IV PRN (04:15)
--- NOTE | 2020-05-20 06:50 | Surgery Progress Note ---
Date of Service May 20, 2020 Assessment & Plan (1) History of laparoscopic cholecystectomy: Status post ERCP also Patient doing somewhat better but feels very weak Some pain but relatively well controlled Continue IV antibiotics Drain serous sanguinous we will leave for now Patient needs at least 1 more day in the hospital Advance her diet Admission and Anticipated Discharge Date Admission Date: May 17, 2020 Results & Data ([place]) Vital Signs (Past 12 Hours) Vital Signs Temp Pulse Resp BP Pulse Ox 05/19/20 23:35 37.3 C 60 20 131/70 93 PG Care Time/CCT Total # of Minutes Spent Total Time Spent with Patient: Total time spent is greater than 50% in coordination of care (as documented) at patient's floor/unit and/or counseling patient: Coding Level of Care Code None Diagnoses History of laparoscopic cholecystectomy Z90.49
[2020-05-20 07:01] LABS: Albumin Level 2.6 gm/dl (3.4-5.0); BUN Creatinine Ratio 9.4 (10-20); Calcium 8.4 mg/dl (8.5-10.1); Creatinine Clr Calc Pharmacy 87.9 ml/min; Est GFR (African American) 103.7; Est GFR (Non-African American) 89.5; Potassium 3.4 mmol/L (3.5-5.1)
[2020-05-20 07:16] LABS: Albumin Globulin Ratio 0.7 (0.9-2); Bilirubin,Total 1.1 mg/dl (0.2-1); Globulin 3.7 gm/dl (2.5-4.0); Total Protein 6.3 gm/dl (6.4-8.2)
[2020-05-20] MEDS: PIPERACILLIN/TAZOBACTAM 4.5 GM in DEXTROSE 5% 100 ML IV SCH ×3 (07:27→23:36)
[2020-05-20] MEDS: PANTOprazole 40 MG TAB PO SCH (09:26)
[2020-05-20] MEDS: IBUPROFEN 200 MG TAB PO PRN ×2 (09:26→15:54)
[2020-05-20] MEDS: VITAMIN B COMPLEX TAB PO SCH (09:27)
[2020-05-20] MEDS: ASCORBIC ACID 500 MG TAB PO SCH (09:27)
[2020-05-20] MEDS: POLYETHYLENE (MIRALAX) 17 GM PACK PO SCH (10:27)
[2020-05-20] MEDS ORDERED: POTASSIUM CHLORIDE 20 MEQ TABCR PO ONE (14:45)
[2020-05-20] MEDS: MAGNESIUM HYDROXIDE SUSP 30 ML UDC PO PRN (15:54)
--- NOTE | 2020-05-20 18:20 | Hospitalist Progress Note ---
Date of Service May 20, 2020 Assessment & Plan (1) Choledocholithiasis: Cholangitis s/p laparoscopic cholecystectomy S/P ERCP with sphincterotomy, stone extraction and stent placement with eventual laparoscopic cholecystectomy Gastroenterology and general surgery on board LFTs has improved post surgery per GI continue antibiotics x2 weeks, follow-up ERCP in 6 weeks with stent removal Continue IV antibiotics diet advanced to solid FEVER : spiked temp cont IV zosyn repeat blood cx ordred (2) Acute cholecystitis: (3) Hypertension: BP remains stable cont to monitor (4) Sleep apnea: intolerant to CPAP (5) DVT prophylaxis: SCD/TEDS Disposition: per primary Follow up: PCP Dr. Jackson upon discharge Thank you for this consultation. We will follow the patient with you during their hospital stay. You [facility] reach a [facility] via pager @ [phone]. Admission and Anticipated Discharge Date Admission Date: May 17, 2020 Subjective spiked temp in evening pt reports of feeling chills , cold rt upper quadrant post surgical pain tolerable diet advanced to solid tolerating well Physical Exam Constitutional: WD/WN, vitals as above + obese Eyes: PERRL, conjunctivae normal, anicteric sclerae ENMT: external ear and nose normal, oropharynx normal Neck: trachea midline, no thyromegaly Respiratory: normal respiratory effort, lungs clear to auscultation Cardiovascular: RRR, no murmur, no edema Gastrointestinal (Abdomen): Percussion/Palpation: abdomen soft Musculoskeletal: no cyanosis or clubbing, extremities motor strength 5/5 Skin: no rashes, warm and dry Neurologic: PERRL, EOMI, accommodation nl, no face palsy, no dysarthria Psychiatric: A+Ox3, euthymic affect Results & Data Results & Data ([facility]) Vital Signs (Past 12 Hours) Vital Signs Temp Pulse Resp BP Pulse Ox 05/20/20 07:08 36.8 C 78 16 149/79 H 91
[2020-05-20] MEDS: OXYCODONE/ACETAMINOPHEN 5mg/325mg TAB PO PRN (19:11)
[2020-05-21 06:05] LABS: Basophils # (auto) 0.02 K/uL (0-0.2); Basophils % (auto) 0.2 %; Eosinophils # (auto) 0.21 K/uL (0-0.5); Eosinophils % (auto) 1.6 %; Hematocrit (blood only) 37.3 % (37-47); Hemoglobin 12.5 g/dL (12.0-16.0); Immature Granulocytes # (auto) 0.03 K/uL (0.00-0.02); Immature Granulocytes % (auto) 0.2 %; Lymphocytes # (auto) 2.93 K/uL (1.2-3.4); Lymphocytes % (auto) 22.2 %; Mean Corpuscular Hemoglobin 30.7 pg (25-34); Mean Corpuscular Hgb Conc 33.5 g/dL (32-36); Mean Corpuscular Volume 91.6 fL (80-100); Monocytes % (auto) 7.6 %; Neutrophils % (auto) 68.2 %; Platelet Count 243 K/uL (130-400); RDW Coefficient of Variation 13.5 % (11.5-14.5); RDW Standard Deviation 44.9 fL (36.4-46.3); Red Blood Count 4.07 M/uL (4.2-5.4); White Blood Count 13.19 K/uL (4.8-10.8)
[2020-05-21 06:37] LABS: Albumin Level 2.7 gm/dl (3.4-5.0); BUN Creatinine Ratio 10.7 (10-20); Creatinine Clr Calc Pharmacy 87.9 ml/min; Est GFR (African American) 103.7; Est GFR (Non-African American) 89.5; Potassium 3.5 mmol/L (3.5-5.1)
[2020-05-21 06:40] LABS: Albumin Globulin Ratio 0.7 (0.9-2); Bilirubin,Total 0.9 mg/dl (0.2-1); Total Protein 6.7 gm/dl (6.4-8.2)
[2020-05-21] MEDS: PIPERACILLIN/TAZOBACTAM 4.5 GM in DEXTROSE 5% 100 ML IV SCH ×2 (08:40→16:01)
[2020-05-21] MEDS: ASCORBIC ACID 500 MG TAB PO SCH (08:41)
[2020-05-21] MEDS: OXYCODONE/ACETAMINOPHEN 5mg/325mg TAB PO PRN ×2 (08:41→21:17)
[2020-05-21] MEDS: POLYETHYLENE (MIRALAX) 17 GM PACK PO SCH (08:41)
[2020-05-21] MEDS: VITAMIN B COMPLEX TAB PO SCH (08:42)
[2020-05-21] MEDS: PANTOprazole 40 MG TAB PO SCH (08:42)
--- NOTE | 2020-05-21 14:50 | Hospitalist Progress Note ---
Date of Service May 21, 2020 Assessment & Plan (1) Choledocholithiasis: Cholangitis s/p laparoscopic cholecystectomy S/P ERCP with sphincterotomy, stone extraction and stent placement with eventual laparoscopic cholecystectomy Gastroenterology and general surgery on board LFTs has improved post surgery per GI continue antibiotics x2 weeks, follow-up ERCP in 6 weeks with stent removal Continue IV antibiotics diet advanced to solid -tolerating well Fever : spiked temp yesterday afebrile today mild leukocytosis noted 13 K cont IV zosyn follow blood cultures (2) Acute cholecystitis: (3) Hypertension: BP remains stable cont to monitor (4) Sleep apnea: intolerant to CPAP (5) DVT prophylaxis: SCD/TEDS Disposition: per primary Follow up: PCP Dr. Jackson upon discharge Thank you for this consultation. We will follow the patient with you during their hospital stay. You can reach a member of the [facility]ist Team 09/03 via pager @ [phone]. Admission and Anticipated Discharge Date Admission Date: May 17, 2020 Subjective Feels better today than yesterday Tolerating regular diet Passing flatus but has not had bowel movement yet Abdominal discomfort decreasing No nausea or vomiting Had T-max of 38.2 yesterday, placed on Zosyn CYRUS has 25 cc out yesterday and 5 cc out today all serosanguineous Physical Exam Constitutional: WD/WN, vitals as above + obese Eyes: PERRL, conjunctivae normal, anicteric sclerae ENMT: external ear and nose normal, oropharynx normal Neck: trachea midline, no thyromegaly Respiratory: normal respiratory effort, lungs clear to auscultation Cardiovascular: RRR, no murmur, no edema Gastrointestinal (Abdomen): Percussion/Palpation: abdomen soft Musculoskeletal: no cyanosis or clubbing, extremities motor strength 5/5 Skin: no rashes, warm and dry Neurologic: PERRL, EOMI, accommodation nl, no face palsy, no dysarthria Psychiatric: A+Ox3, euthymic affect Results & Data Results & Data ([place]) Vital Signs (Past 12 Hours) Vital Signs Temp Pulse Resp BP Pulse Ox 05/21/20 07:31 37.2 C 72 18 169/79 H 97
--- NOTE | 2020-05-21 15:36 | Surgery Progress Note ---
Date of Service May 21, 2020 Assessment & Plan (1) Acute cholecystitis: Subjectively doing better, tolerating diet and passing flatus No bowel movement as yet White blood cell count and temperature elevation noted On Zosyn at the present time Tentatively plan for discharge tomorrow if temperature remains normal and white blood cell count turns towards normal. Will need p.o. antibiotics post discharge. Encouraged ambulation. Admission and Anticipated Discharge Date Admission Date: May 17, 2020 Subjective Feels better today than yesterday Tolerating regular diet Passing flatus but has not had bowel movement yet Abdominal discomfort decreasing No nausea or vomiting Had T-max of 38.2 yesterday, placed on Zosyn CYRUS has 25 cc out yesterday and 5 cc out today all serosanguineous Physical Exam Gastrointestinal (Abdomen): Inspection/Auscultation: + abdominal surgical incision (Incisions are clean, dry and intact); abdomen not distended Percussion/Palpation: + abdomen tender (Right upper side only and incisional) and abdomen soft Results & Data ([facility]) Vital Signs (Past 12 Hours) Vital Signs Temp Pulse Resp BP Pulse Ox 05/21/20 07:31 37.2 C 72 18 169/79 H 97 Laboratory Results 05/21/20 05/21/20 Range/Units 05:28 05:28 WBC 13.19 H (4.8-10.8) K/uL RBC 4.07 L (4.2-5.4) M/uL Hgb 12.5 (12.0-16.0) g/dL Hct 37.3 (37-47) % MCV 91.6 (80-100) fL MCH 30.7 (25-34) pg MCHC 33.5 (32-36) g/dL RDW Std Deviation 44.9 (36.4-46.3) fL RDW Coeff of Lizette 13.5 (11.5-14.5) % Plt Count 243 (130-400) K/uL MPV 10.0 (7.4-10.4) fL Immature Gran % (Auto) 0.2 % Neut % (Auto) 68.2 % Lymph % (Auto) 22.2 % [place] % (Auto) 7.6 % Eos % (Auto) 1.6 % Baso % (Auto) 0.2 % Neut # (Auto) 9.00 H (1.4-6.5) K/uL Lymph # (Auto) 2.93 (1.2-3.4) K/uL [place] # (Auto) 1.00 H (0.11-0.59) K/uL Eos # (Auto) 0.21 (0-0.5) K/uL Baso # (Auto) 0.02 (0-0.2) K/uL Immature Gran # (Auto) 0.03 H (0.00-0.02) K/uL Sodium 142 (136-145) mmol/L Potassium 3.5 (3.5-5.1) mmol/L Chloride 107 (98-107) mmol/L Carbon Dioxide 31 (21-32) mmol/L Anion Gap 4.0 (3-11) BUN 7 (7-18) mg/dl Creatinine 0.66 (0.6-1.2) mg/dl Est Cr Clr Drug Dosing 87.9 ml/min Est GFR ( Amer) 103.7 Est GFR (Non-Af Amer) 89.5 BUN/Creatinine Ratio 10.7 (10-20) Glucose 100 H (70-99) mg/dl Calcium 9.0 (8.5-10.1) mg/dl Total Bilirubin 0.9 (0.2-1) mg/dl AST 50 H (15-37) U/L ALT 142 H (12-78) U/L Alkaline Phosphatase 175 H (45-117) U/L Total Protein 6.7 (6.4-8.2) gm/dl Albumin 2.7 L (3.4-5.0) gm/dl Globulin 4.0 (2.5-4.0) gm/dl Albumin/Globulin Ratio 0.7 L (0.9-2)
[2020-05-21] MEDS: DOCUSATE SODIUM 100 MG CAP PO PRN (16:00)
[2020-05-21] MEDS: MAGNESIUM HYDROXIDE SUSP 30 ML UDC PO PRN (16:11)
[2020-05-21] MEDS: IBUPROFEN 200 MG TAB PO PRN (16:11)
[2020-05-22] MEDS: PIPERACILLIN/TAZOBACTAM 4.5 GM in DEXTROSE 5% 100 ML IV SCH ×3 (00:30→16:11)
[2020-05-22 06:14] LABS: Basophils # (auto) 0.01 K/uL (0-0.2); Basophils % (auto) 0.1 %; Eosinophils # (auto) 0.33 K/uL (0-0.5); Eosinophils % (auto) 3.7 %; Hematocrit (blood only) 37.7 % (37-47); Hemoglobin 12.3 g/dL (12.0-16.0); Immature Granulocytes # (auto) 0.01 K/uL (0.00-0.02); Immature Granulocytes % (auto) 0.1 %; Lymphocytes # (auto) 3.19 K/uL (1.2-3.4); Lymphocytes % (auto) 36.2 %; Mean Corpuscular Hemoglobin 29.7 pg (25-34); Mean Corpuscular Hgb Conc 32.6 g/dL (32-36); Mean Corpuscular Volume 91.1 fL (80-100); Mean Platelet Volume 9.9 fL (7.4-10.4); Monocytes % (auto) 6.8 %; Neutrophils # (auto) 4.68 K/uL (1.4-6.5); Neutrophils % (auto) 53.1 %; Platelet Count 256 K/uL (130-400); RDW Coefficient of Variation 13.4 % (11.5-14.5); RDW Standard Deviation 44.7 fL (36.4-46.3); Red Blood Count 4.14 M/uL (4.2-5.4); White Blood Count 8.82 K/uL (4.8-10.8)
[2020-05-22 06:42] LABS: Albumin Level 2.6 gm/dl (3.4-5.0); BUN Creatinine Ratio 12.2 (10-20); Calcium 8.6 mg/dl (8.5-10.1); Creatinine Clr Calc Pharmacy 86.6 ml/min; Est GFR (African American) 103.2; Est GFR (Non-African American) 89.1; Potassium 3.1 mmol/L (3.5-5.1)
[2020-05-22 06:45] LABS: Albumin Globulin Ratio 0.6 (0.9-2); Bilirubin,Total 0.8 mg/dl (0.2-1); Globulin 4.3 gm/dl (2.5-4.0); Total Protein 6.9 gm/dl (6.4-8.2)
[2020-05-22] MEDS: POLYETHYLENE (MIRALAX) 17 GM PACK PO SCH (09:13)
[2020-05-22] MEDS: ASCORBIC ACID 500 MG TAB PO SCH (09:13)
[2020-05-22] MEDS: PANTOprazole 40 MG TAB PO SCH (09:13)
[2020-05-22] MEDS: VITAMIN B COMPLEX TAB PO SCH (09:13)
[2020-05-22] MEDS: DOCUSATE SODIUM 100 MG CAP PO PRN (09:15)
[2020-05-22] MEDS: OXYCODONE/ACETAMINOPHEN 5mg/325mg TAB PO PRN (11:37)
[2020-05-22] MEDS: MAGNESIUM HYDROXIDE SUSP 30 ML UDC PO PRN (12:50)
--- NOTE | 2020-05-22 14:24 | Surgery Progress Note ---
Date of Service May 22, 2020 Assessment & Plan (1) Acute cholecystitis: Postoperative day #4 status post laparoscopic cholecystectomy after ERCP Patient feels better but still has nausea Will discontinue Percocet start tramadol Encouraged more ambulation T-max was 37 7 White blood cell count is normal Liver function tests continue to decreased normal with now a normal bilirubin and AST Considering the nausea do not feel that she can be discharged today. Hopefully the tramadol will avoid the nausea. Hopefully can discharge tomorrow but will reevaluate Admission and Anticipated Discharge Date Admission Date: May 17, 2020 Subjective Postoperative day #4 status post laparoscopic cholecystectomy and ERCP Patient states that she feels much better however she still has nausea. She is unsure as to whether the nausea is related to the Percocet although she has had upset stomach with Percocet in the past. She also has been drinking orange juice which does cause some discomfort. She has not vomited. She is passing flatus but has not had a bowel movement. CYRUS has had minimal serosanguineous output Physical Exam Gastrointestinal (Abdomen): Inspection/Auscultation: + abdominal surgical incision (All are clean dry and intact); abdomen not distended Percussion/Palpation: + abdomen tender (Much less so today) and abdomen soft Results & Data ([facility]) Vital Signs (Past 12 Hours) Vital Signs Temp Pulse Resp BP Pulse Ox 05/22/20 07:45 36.5 C 52 L 16 132/79 94 Laboratory Results 05/22/20 05/22/20 Range/Units 05:55 05:55 WBC 8.82 (4.8-10.8) K/uL RBC 4.14 L (4.2-5.4) M/uL Hgb 12.3 (12.0-16.0) g/dL Hct 37.7 (37-47) % MCV 91.1 (80-100) fL MCH 29.7 (25-34) pg MCHC 32.6 (32-36) g/dL RDW Std Deviation 44.7 (36.4-46.3) fL RDW Coeff of Lizette 13.4 (11.5-14.5) % Plt Count 256 (130-400) K/uL MPV 9.9 (7.4-10.4) fL Immature Gran % (Auto) 0.1 % Neut % (Auto) 53.1 % Lymph % (Auto) 36.2 % [place] % (Auto) 6.8 % Eos % (Auto) 3.7 % Baso % (Auto) 0.1 % Neut # (Auto) 4.68 (1.4-6.5) K/uL Lymph # (Auto) 3.19 (1.2-3.4) K/uL [place] # (Auto) 0.60 H (0.11-0.59) K/uL Eos # (Auto) 0.33 (0-0.5) K/uL Baso # (Auto) 0.01 (0-0.2) K/uL Immature Gran # (Auto) 0.01 (0.00-0.02) K/uL Sodium 141 (136-145) mmol/L Potassium 3.1 L (3.5-5.1) mmol/L Chloride 105 (98-107) mmol/L Carbon Dioxide 32 (21-32) mmol/L Anion Gap 4.0 (3-11) BUN 8 (7-18) mg/dl Creatinine 0.67 (0.6-1.2) mg/dl Est Cr Clr Drug Dosing 86.6 ml/min Est GFR ( Amer) 103.2 Est GFR (Non-Af Amer) 89.1 BUN/Creatinine Ratio 12.2 (10-20) Glucose 106 H (70-99) mg/dl Calcium 8.6 (8.5-10.1) mg/dl Total Bilirubin 0.8 (0.2-1) mg/dl AST 23 (15-37) U/L ALT 97 H (12-78) U/L Alkaline Phosphatase 156 H (45-117) U/L Total Protein 6.9 (6.4-8.2) gm/dl Albumin 2.6 L (3.4-5.0) gm/dl Globulin 4.3 H (2.5-4.0) gm/dl Albumin/Globulin Ratio 0.6 L (0.9-2)
[2020-05-22] MEDS ORDERED: POTASSIUM CHLORIDE 20 MEQ TABCR PO ONE (19:00)
--- NOTE | 2020-05-22 21:20 | Hospitalist Progress Note ---
Date of Service May 22, 2020 Assessment & Plan (1) Choledocholithiasis: Cholangitis s/p laparoscopic cholecystectomy S/P ERCP with sphincterotomy, stone extraction and stent placement with eventual laparoscopic cholecystectomy Gastroenterology and general surgery on board LFTs has improved post surgery diet advanced to solid tolerating well F/w with GI in 6 weeks for repeat ERCP and biliary stent removal has been afebrile since yesterday normal wbc /blood culture -no growth d/c Zosyn Abx changed to PO Cipro /complete 2 weeks tx Morbid obesity with BMI 40.5 life style modification , counselling provided for diet and execise (2) Acute cholecystitis: (3) Hypertension: BP remains stable cont to monitor (4) Sleep apnea: intolerant to CPAP (5) DVT prophylaxis: SCD/TEDS Disposition: per primary Follow up: PCP Dr. Jackson upon discharge Thank you for this consultation. We will follow the patient with you during their hospital stay. You can reach a member of the [facility] Hospitalist Team 09/03 via pager @ [phone]. Admission and Anticipated Discharge Date Admission Date: May 17, 2020 Subjective afebrile since yesterday white count has normalized offers no new complain Physical Exam Constitutional: WD/WN, vitals as above + obese Eyes: PERRL, conjunctivae normal, anicteric sclerae ENMT: external ear and nose normal, oropharynx normal Neck: trachea midline, no thyromegaly Respiratory: normal respiratory effort, lungs clear to auscultation Cardiovascular: RRR, no murmur, no edema Gastrointestinal (Abdomen): Percussion/Palpation: abdomen soft Musculoskeletal: no cyanosis or clubbing, extremities motor strength 5/5 Skin: no rashes, warm and dry Neurologic: PERRL, EOMI, accommodation nl, no face palsy, no dysarthria Psychiatric: A+Ox3, euthymic affect Results & Data Results & Data ([facility]) Vital Signs (Past 12 Hours) Vital Signs Temp Pulse Resp BP Pulse Ox 05/22/20 15:08 36.6 C 73 18 157/89 H 94
[2020-05-22] MEDS: CIPROFLOXACIN 500 MG TAB PO SCH (21:25)
[2020-05-23] MEDS: MAGNESIUM HYDROXIDE SUSP 30 ML UDC PO PRN (04:53)
[2020-05-23] MEDS: DOCUSATE SODIUM 100 MG CAP PO PRN (04:53)
[2020-05-23 06:23] LABS: Basophils # (auto) 0.02 K/uL (0-0.2); Basophils % (auto) 0.2 %; Eosinophils # (auto) 0.37 K/uL (0-0.5); Eosinophils % (auto) 4.2 %; Hematocrit (blood only) 38.1 % (37-47); Hemoglobin 12.2 g/dL (12.0-16.0); Immature Granulocytes # (auto) 0.02 K/uL (0.00-0.02); Immature Granulocytes % (auto) 0.2 %; Lymphocytes # (auto) 2.13 K/uL (1.2-3.4); Lymphocytes % (auto) 24.1 %; Mean Corpuscular Hemoglobin 28.8 pg (25-34); Mean Corpuscular Volume 90.1 fL (80-100); Mean Platelet Volume 9.8 fL (7.4-10.4); Monocytes # (auto) 0.51 K/uL (0.11-0.59); Monocytes % (auto) 5.8 %; Neutrophils # (auto) 5.77 K/uL (1.4-6.5); Neutrophils % (auto) 65.5 %; Platelet Count 284 K/uL (130-400); RDW Coefficient of Variation 13.3 % (11.5-14.5); RDW Standard Deviation 43.9 fL (36.4-46.3); Red Blood Count 4.23 M/uL (4.2-5.4); White Blood Count 8.82 K/uL (4.8-10.8)
[2020-05-23 07:21] LABS: Albumin Globulin Ratio 0.6 (0.9-2); Albumin Level 2.6 gm/dl (3.4-5.0); BUN Creatinine Ratio 11.8 (10-20); Bilirubin,Total 0.8 mg/dl (0.2-1); Calcium 8.8 mg/dl (8.5-10.1); Creatinine Clr Calc Pharmacy 92.1 ml/min; Est GFR (African American) 105.3; Est GFR (Non-African American) 90.9; Globulin 4.4 gm/dl (2.5-4.0); Potassium 3.9 mmol/L (3.5-5.1)
--- NOTE | 2020-05-23 07:56 | Surgery Progress Note ---
Date of Service May 23, 2020 Assessment & Plan (1) Acute cholecystitis: Postoperative day #5 status post laparoscopic cholecystectomy after ERCP Bowels are now moving No abdominal tenderness CYRUS had minimal output Can discharge to home Appreciate internal medicine assistance We will continue Denissero Discussed postoperative activity restrictions Follow-up with me in 1 to [address] Marina in 4 to 5 weeks Admission and Anticipated Discharge Date Admission Date: May 17, 2020 Subjective Postoperative day #5 status post laparoscopic cholecystectomy and ERCP Patient feels much better today Had large bowel movement yesterday Denies nausea or vomiting Tolerating low-fat diet Temperature maximum over the last 24 hours is 36.9 Physical Exam Gastrointestinal (Abdomen): Inspection/Auscultation: normal bowel sounds and + abdominal surgical incision; abdomen not distended Percussion/Palpation: abdomen soft; abdomen nontender Results & Data ([facility]) Vital Signs (Past 12 Hours) Vital Signs Temp Pulse Resp BP Pulse Ox 05/22/20 23:13 36.9 C 77 18 148/90 H 90 Laboratory Results 05/23/20 05/23/20 Range/Units 06:10 06:10 WBC 8.82 (4.8-10.8) K/uL RBC 4.23 (4.2-5.4) M/uL Hgb 12.2 (12.0-16.0) g/dL Hct 38.1 (37-47) % MCV 90.1 (80-100) fL MCH 28.8 (25-34) pg MCHC 32.0 (32-36) g/dL RDW Std Deviation 43.9 (36.4-46.3) fL RDW Coeff of Lizette 13.3 (11.5-14.5) % Plt Count 284 (130-400) K/uL MPV 9.8 (7.4-10.4) fL Immature Gran % (Auto) 0.2 % Neut % (Auto) 65.5 % Lymph % (Auto) 24.1 % [place] % (Auto) 5.8 % Eos % (Auto) 4.2 % Baso % (Auto) 0.2 % Neut # (Auto) 5.77 (1.4-6.5) K/uL Lymph # (Auto) 2.13 (1.2-3.4) K/uL [place] # (Auto) 0.51 (0.11-0.59) K/uL Eos # (Auto) 0.37 (0-0.5) K/uL Baso # (Auto) 0.02 (0-0.2) K/uL Immature Gran # (Auto) 0.02 (0.00-0.02) K/uL Sodium 138 (136-145) mmol/L Potassium 3.9 D (3.5-5.1) mmol/L Chloride 104 (98-107) mmol/L Carbon Dioxide 30 (21-32) mmol/L Anion Gap 4.0 (3-11) BUN 7 (7-18) mg/dl Creatinine 0.63 (0.6-1.2) mg/dl Est Cr Clr Drug Dosing 92.1 ml/min Est GFR ( Amer) 105.3 Est GFR (Non-Af Amer) 90.9 BUN/Creatinine Ratio 11.8 (10-20) Glucose 103 H (70-99) mg/dl Calcium 8.8 (8.5-10.1) mg/dl Total Bilirubin 0.8 (0.2-1) mg/dl AST 15 (15-37) U/L ALT 76 (12-78) U/L Alkaline Phosphatase 148 H (45-117) U/L Total Protein 7.0 (6.4-8.2) gm/dl Albumin 2.6 L (3.4-5.0) gm/dl Globulin 4.4 H (2.5-4.0) gm/dl Albumin/Globulin Ratio 0.6 L (0.9-2)
[2020-05-23] MEDS: ASCORBIC ACID 500 MG TAB PO SCH (07:58)
[2020-05-23] MEDS: POLYETHYLENE (MIRALAX) 17 GM PACK PO SCH (07:58)
[2020-05-23] MEDS: VITAMIN B COMPLEX TAB PO SCH (07:58)
[2020-05-23] MEDS: CIPROFLOXACIN 500 MG TAB PO SCH (07:58)
[2020-05-23] MEDS: OXYCODONE/ACETAMINOPHEN 5mg/325mg TAB PO PRN (09:52)
[2020-05-23] MEDS ORDERED: metroNIDAZOLE 500 MG TAB PO STA (10:00)
--- NOTE | 2020-05-23 10:05 | Hospitalist Progress Note ---
Date of Service May 23, 2020 Assessment & Plan (1) Choledocholithiasis: Cholangitis s/p laparoscopic cholecystectomy S/P ERCP with sphincterotomy, stone extraction and stent placement with eventual laparoscopic cholecystectomy Gastroenterology and general surgery on board LFTs has improved post surgery diet advanced to solid tolerating well F/w with GI in 6 weeks for repeat ERCP and biliary stent removal Has been afebrile Blood cx no growth IV zosyn change to Cipro and flagyl to complete a total 2 weeks course of abx Morbid obesity with BMI 40.5 life style modification , counselling provided for diet and execise (2) Acute cholecystitis: (3) Hypertension: BP remains stable cont to monitor (4) Sleep apnea: intolerant to CPAP (5) DVT prophylaxis: SCD/TEDS Disposition: per primary Follow up: PCP Dr. Jackson upon discharge Thank you for this consultation. We will follow the patient with you during their hospital stay. You can reach a member of the [facility] Hospitalist Team 09/03 via pager @ [phone]. Admission and Anticipated Discharge Date Admission Date: May 17, 2020 Subjective Pt was seen and examined Walking in the hallway with the nurse with no distress Pt said that she feels fine Denies any chest pain, palpitation, dizziness and SOB Physical Exam Physical Exam: Constitutional: WD/WN, vitals as above + obese Eyes: PERRL, conjunctivae normal, anicteric sclerae ENMT: external ear and nose normal, oropharynx normal Neck: trachea midline, no thyromegaly Respiratory: normal respiratory effort, lungs clear to auscultation Cardiovascular: RRR, no murmur, no edema Gastrointestinal: Percussion/Palpation: abdomen soft Musculoskeletal: no cyanosis or clubbing, extremities motor strength 5/5 Skin: no rashes, warm and dry Neurologic: PERRL, EOMI, accommodation nl, no face palsy, no dysarthria Psychiatric: A+Ox3, euthymic affect Results & Data Results & Data ([facility]) Vital Signs (Past 12 Hours) Vital Signs Temp Pulse Pulse Resp BP Pulse Ox 05/23/20 08:32 36.8 C 73 68 18 130/64 94 05/23/20 07:57 36.8 C 68 18 157/87 H 94 05/22/20 23:13 36.9 C 77 18 148/90 H 90
--- NOTE | 2020-05-26 14:11 | Discharge Summary ---
Date of Service May 26, 2020 Admission HPI Per Admitting Provider This is a 69-year-old female who presented to the emergency room with a complaint of abdominal pain centered in the right upper quadrant with some in the epigastric area that she described as a burning sensation. It began an hour after eating lunch today around 2:00. The severity increased in intensity such that it was severe. She called the ambulance and was transported for evaluation here in the emergency room. Over the last 2 to 3 months she has had similar pain to this but not this severe. It is located in the same place however. The pain always follows eating. She is unsure but thinks that fatty foods may be contributing. She had nausea with this pain but does not usually. She has not vomited. Her bowel habits have been regular without melena or hematochezia and she denies dysuria and hematuria. She has never had jaundice, hepatitis or pancreatitis. She felt hot and diaphoretic but does not think she had a fever. Admission Exam Per Admitting Provider Constitutional: no acute distress Neck: trachea midline Respiratory: normal respiratory effort, lungs clear to auscultation Cardiovascular: Rate/Rhythm: regular rate and regular rhythm Gastrointestinal (Abdomen): Inspection/Auscultation: normal bowel sounds; abdomen not distended Percussion/Palpation: abdomen soft; abdomen nontender Skin: no rashes, warm and dry Lymphatic: no cervical lymphadenopathy Principal Diagnosis Acute cholecystitis Discharge Exam Gastrointestinal (Abdomen): Inspection/Auscultation: normal bowel sounds and + abdominal surgical incision; abdomen not distended Percussion/Palpation: abdomen soft; abdomen nontender Discharge Data Allergies Allergy/AdvReac Type Severity Reaction Status Date / Time No Known Drug Allergies Allergy Unknown . Verified 05/17/20 20:15 Consultations 05/17/20 19:15 ED Decision to Admit Stat 05/18/20 11:06 Consult Patient Rep / Service Excellence [Consult Patient Services] Stat 05/18/20 18:11 Consult Hospitalist Routine Procedures Performed Operation Date: 05/18/20 07:15 Actual Procedures p Laparoscopic Cholecystectomy - Tomi Alcantara MD s Endoscopic Retrograde Cholangiopancreatography, Sphincterotomy, Extraction of Gallstones and Stent Placement - Kyrstian Marina Operation Date: 05/18/20 08:00 <No data on this case meets the specified criteria> Ordered Studies 05/17/20 17:27 CT angio abdomen pelvis w con Stat 05/17/20 22:58 US abdomen limited Urgent 05/18/20 [place] ERCP biliary ductal Routine Hospital Course (1) Acute cholecystitis: The patient was admitted and given analgesia. The next morning her bilirubin had increased to 3.2. Gastroenterology consult was obtained. The patient then underwent an ERCP. She appeared to have evidence of cholangitis with purulent material removed from the common bile duct as well as stones and a sphincterotomy was performed. She also had placement of a stent. She then underwent a laparoscopic cholecystectomy under the same anesthetic. There was thickening of the gallbladder wall with multiple adhesions and dense adherence of the gallbladder to the liver. The procedure was able to be completed laparoscopically. The patient's white blood cell count following that decreased to normal. Her H&H was stable. Her bilirubin at 1.9-day of surgery went up to 5.7 but then decreased to normal as did the remainder of her liver function tests. She had episodes of nausea which prolonged her stay. She was tolerating a regular diet and moving her bowels prior to discharge. Her drain was putting out minimal and was removed prior to discharge. She was ambulating prior to discharge. Total Time Total Time Spent Total Time Spent (In Minutes): 15 Discharge Plan Discharge Items Patient Disposition: Home - Home Health Services Reason For Visit: CHOLECYSTITIS Discharge Diagnosis: ACUTE CHOLECYSTITIS WITH CHOLEDOCOLITHIASIS Activity: As commented below Non-emergency contact: Surgeon Call non-emergency contact if: your temperature is above 101.5, your wound has increased redness and your wound pain has increased Follow-up/Referrals: Tomi Alcantara MD [Physician] - Jesse Gomez [Physician] - (FOLLOW UP IN 6 WEEKS FOR REPEAT ERCP ) Darius Jackson M.D. [Primary Care Provider] - Diet: Low Fat Diet Comment: LOW FAT DIET FOR 2 WEEKS Ambulatory Orders: Comprehensive Metabolic Panel (Routine) Timeframe: 1 Week Location: Determined by Patient Ordered By: Alaina Murray Attending Provider Instructions: Post-Surgical ~Discharge Instructions Activity Recommendations: - lifting limitation: (10 pounds for 2 weeks), - exercise/sex/sports limit: (nonstrenuous for 2 weeks), - driving or machine use limit: (none for 1 week), - Shower/bathe limit: (may shower beginning tomorrow) Diet: - Resume previous diet SPECIAL CARE INSTRUCTIONS: - May shower in 24 hours. Let water run over area and pat dry. - Leave steri strips on for one week. - Call the surgeon's office with any questions or concerns - - (ex. temperature higher than 101 degrees F, excessive bleeding or pain). MEDICATIONS: - Resume previous medications unless instructed otherwise by your surgeon. - Ibuprofen 600 mg every 6 hours with food - Percocet 1 every 4 hours, as needed for pain FOLLOW UP VISIT: - If not already scheduled, please call the office to schedule a two week follow-up appointment. Office number Add Quality Rep Provider Instructions: FOLLOW UP WITH [facility] GOMEZ IN 6 WEEKS FOR REPEAT ERCP AND BILIARY DUCT STENT REMOVAL DO NOT TAKE ASPIRIN , ALEVE, ADVIL , MOTRIN , IBUPROPHEN , NAPROXEN FOR 1 WEEK BASIC METABOLIC PANEL IN 1 WEEK COMPLETE ANTIBIOTIC CIPROFLOXACIN FOR 2 WEEKS Pending Studies at Discharge: Yes Studies:: Pathology Stand-Alone Forms: My [facility] [place] [employer], Smoking Cessation Medications and DC Order Prescriptions: New oxycodone-acetaminophen [Percocet] 5-325 mg tablet 1 tab PO Q6H PRN (Reason: pain) Qty: 5 RF: 0 ciprofloxacin HCl [Cipro] 500 mg tablet 500 mg PO BID 10 Days Qty: 20 RF: 0 metronidazole [Flagyl] 500 mg tablet 500 mg PO Q8H 10 Days Qty: 30 RF: 0 Continued activated charcoal 260 mg Capsule 0 mg PO UD PRN (Reason: ..) RF: 0 vitamin E 100 unit Capsule 0 unit PO DAILY RF: 0 ascorbic acid (vitamin C) [Vitamin C] 500 mg Tablet 1,000 mg PO BID RF: 0 Vitamin D3 100 mcg (4,000 unit) Capsule 150 - 200 mcg PO DAILY RF: 0 Discharge Orders: Discharge Order (Routine); Ordered 05/23/20 Ordered By: Tomi Doherty/Other Patient Handouts: Low-Fat Cooking Tips, Adding Flavor to Low-Fat Meals, ED Diet, Low Fat Admission Data Admit Date/Time: 05/17/20 20:48 Attending Provider: Tomi Alcantara Admit Provider: Tomi Alcantara Primary Care Provider: Darius Jackson Other Providers: Tomi Alcantara ; Larry Gonzalez ; Alaina Gill ; Arabella Walker Other Interventions: Discharge Summary Assessment (RN) Last Done: 05/23/20 08:32
== END 2020-05-23 11:09 | disposition home health service (06) | DRG 418 ==
LOC: ED 16:48 → 3N 20:48
DX: K80.42 Calculus of bile duct with acute cholecystitis without obstruction; E66.01 Morbid (severe) obesity due to excess calories; G47.30 Sleep apnea, unspecified; I10 Essential (primary) hypertension; Z68.41 Body mass index [BMI] 40.0-44.9, adult

== ENCOUNTER 2020-12-26 10:00 | Observation (INO) ==
[2020-12-26] MEDS ORDERED: lisinopril 10 MG TAB PO STA (10:45)
[2020-12-26 10:59] LABS: Basophils # (auto) 0.01 K/uL (0-0.2); Basophils % (auto) 0.1 %; Eosinophils # (auto) 0.04 K/uL (0-0.5); Eosinophils % (auto) 0.6 %; Hematocrit (blood only) 39.7 % (37-47); Hemoglobin 13.6 g/dL (12.0-16.0); Immature Granulocytes # (auto) 0.01 K/uL (0.00-0.02); Immature Granulocytes % (auto) 0.1 %; Lymphocytes # (auto) 2.18 K/uL (1.2-3.4); Lymphocytes % (auto) 31.6 %; Mean Corpuscular Hemoglobin 30.6 pg (25-34); Mean Corpuscular Hgb Conc 34.3 g/dL (32-36); Mean Corpuscular Volume 89.4 fL (80-100); Mean Platelet Volume 10.3 fL (7.4-10.4); Monocytes # (auto) 0.44 K/uL (0.11-0.59); Monocytes % (auto) 6.4 %; Neutrophils # (auto) 4.21 K/uL (1.4-6.5); Neutrophils % (auto) 61.2 %; Platelet Count 262 K/uL (130-400); RDW Standard Deviation 42.7 fL (36.4-46.3); Red Blood Count 4.44 M/uL (4.2-5.4); White Blood Count 6.89 K/uL (4.8-10.8)
[2020-12-26 11:06] LABS: Alanine Aminotransferase 13 U/L (12-78); Albumin Level 3.3 gm/dl (3.4-5.0); Aspartate Aminotransferase 9 U/L (15-37); BUN Creatinine Ratio 15.9 (10-20); Blood Urea Nitrogen 11 mg/dl (7-18); Calcium 9.2 mg/dl (8.5-10.1); Carbon Dioxide 26 mmol/L (21-32); Chloride 109 mmol/L (98-107); Est GFR (Non-African American) 87.2; Glucose 106 mg/dl (70-99); Potassium 3.7 mmol/L (3.5-5.1); Sodium 142 mmol/L (136-145)
[2020-12-26 11:13] LABS: Albumin Globulin Ratio 0.8 (0.9-2); Alkaline Phosphatase 95 U/L (45-117); Bilirubin,Total 1.1 mg/dl (0.2-1); Creatine Kinase 52 U/L (26-192); Creatine Kinase MB < 1.0 ng/ml (0.5-3.6); Globulin 4.1 gm/dl (2.5-4.0); Total Protein 7.4 gm/dl (6.4-8.2); Troponin I < 0.015 ng/ml (0-0.045)
[2020-12-26] MEDS ORDERED: POTASSIUM CHLORIDE CRTAB 20 MEQ TABCR PO STA (12:29)
[2020-12-26] MEDS ORDERED: hydrALAZINE 10 MG TAB PO STA (13:41)
--- NOTE | 2020-12-26 13:48 | History & Physical Report ---
Date of Service December 26, 2020 Assessment & Plan (1) Near syncope: (2) Chest pain: (3) Hypertension: This is a 70-year-old female who has significant past medical history of HTN, chronic sinus bradycardia, aortic valve sclerosis, ORION intolerant to CPAP who presents to ED secondary to dizziness, near syncope, chest pain off and on x2 days. Pt with 2 recent episodes of near syncope and previously uncontrolled HTN managed with lifestyle modifications. Pt has been recommended to start anti hypertensives by cardiology and nephrology in past, but pt resistant, now willing. She has not tolerated lisinopril in the past. Syncope work up as below admit to [facility] monitor for arrhythmia or worsened bradycardia obtain echocardiogram - last 2018 EF 55%, grade 1 D, mild MR, mild AV sclerosis obtain carotid doppler orthostatic blood pressures will d/c clonidine that was started yesterday prn - pt did not tolerate lisinopril in past and she also c/o of intermitted LE swelling so will avoid amlodipine at this time trial hydralazine 10mg TID consult cardiology for assistance in BP management and eval of dizziness ? possibly related to bradycardia or hypertension -further work up above pending PT/OT cycle troponin, repeat ecg - currently asymptomatic sitting heart healthy, low sodium diet (4) Sinus bradycardia: pt with chronic sinus bradycardia per ekgs from prior ? if dizziness/near syncope now attributing to this or if soley HTN related consult cards as above (5) Sleep apnea: intolerant/resistant to cpap likely part of uncontrolled HTN along with morbid obesity (6) History of recent dental procedure: pt states recent dental cleaning complained of dental pain was started on oral keflex - continue until complete (7) DVT prophylaxis: SQ Lovenox Dispo: med tele PCP: [facility]ULL CODE Pt was seen and examined in collaboration with Dr. Bowles, please see addendum History of Present Illness Chief Complaint: Dizziness, near syncope, chest pain off and on x2 days. Primary Care Provider: Darius Jackson This is a 70-year-old female who has significant past medical history of HTN, chronic sinus bradycardia, aortic valve sclerosis, ORION intolerant to CPAP who presents to ED secondary to dizziness, near syncope, chest pain off and on x2 days. Of significance patient was seen in ED early on 12/25 secondary to dizziness, near syncope, weakness and right-sided leg pain. She underwent thorough evaluation with cardiac enzymes, EKG, chest x-ray and CTA which was negative for PE. She was found to be significantly hypertensive with SBP's in t he 180s. She was encouraged to follow-up with PCP for further evaluation. She was seen in clinic yesterday afternoon due to elevated blood pressure. When she went home her SBP's continue to be in the 180s and she was perturbed that nobody start her on medications. Of significance patient has been resistant to starting medications in the past as it has been recommended by cardiology as well as nephrology the patient wishes to only treat with diet and lifestyle modifications. At this point time she feels, "I have no choice." In clinic yesterday she was given clonidine 0.1 mg p.o. twice daily as needed for SBP greater than 130. She took this twice since last evaluation. She was also placed on oral Keflex 500 mg 4 times daily secondary to recent dental cleaning and complaining of generalized teeth pain. She is therefore taking 2 doses of these. She complains of intermittent substernal chest pain that is nonradiating. This will come and go with no particular pattern and does not seem to be affected by exertion. It does come on whenever she gets the dizziness and near syncope sensation. She also feels, a "tugging," on her left arm. She denies any radiation to neck, jaw, back or numbness or tingling. She denies any nausea or diaphoresis. She denies any vertigo-like symptoms. She denies any recent illness. Her appetite is otherwise been normal. She denies any fever, chills, sweats, shortness breath at rest, shortness of exertion, cough, hemoptysis, nausea, vomiting, abdominal pain, change in bowel or urinary habits. She does complain of intermittent lower extremity swelling which she states tends to occur in the evening, but resolves in the morning. She tries to abide by a low-sodium diet, but is not always successful. She recalls in the past being placed on lisinopril and is causing, "severe leg pain," and therefore she stopped this. In ED patient remained significantly hypertensive but otherwise hemodynamically stable. She has a chronic sinus bradycardia with heart rates in the 40s. She received 10 mg of oral lisinopril as well as potassium supplementation. Currently she does feel improved, but is concerned. Her initial troponin was WNL. EKG revealed sinus bradycardia but there are new T wave inversions in leads III and aVF. She also received full dose aspirin in route. Allergies Allergy/AdvReac Type Severity Reaction Status Date / Time No Known Drug Allergies Allergy Unknown . Verified 12/26/20 11:45 Home Medications Medication Instructions Recorded Confirmed Type ascorbic acid (vitamin C) [Vitamin 1,000 mg PO DAILY 05/17/20 12/26/20 History C] Eye Vitamin Tab 1 tab PO DAILY 12/25/20 12/26/20 History cephalexin 500 mg PO QID 7 Days #28 cap 12/25/20 12/26/20 Rx cholecalciferol (vitamin D3) 250 mcg PO Q OTHER DAY 12/25/20 12/26/20 History [Vitamin D3] coenzyme Q10 [Co Q-10] 0 mg PO DAILY 12/25/20 12/26/20 History vitamin D3-vitamin K2 1 tab PO Q OTHER DAY 12/25/20 12/26/20 History aspirin [Baby Aspirin] 324 mg PO .TODAY IN AMBULANCE 12/26/20 12/26/20 History clonidine HCl 0.1 mg PO BID PRN 12/26/20 12/26/20 History cyanocobalamin (vitamin B-12) 0 mcg PO DAILY 12/26/20 12/26/20 History [Vitamin B-12] vitamin A 0 unit PO DAILY 12/26/20 12/26/20 History zinc 0 mg PO DAILY 12/26/20 12/26/20 History Past Med/Surg History Medical History Acute cholecystitis Hypertension Sinus bradycardia Sleep apnea Surgical History deliv NOS-unsp H/O cataract extraction History of ERCP History of laparoscopic cholecystectomy Family History Mother CHF (congestive heart failure) Hypertension Diabetes Social History Smoking Status: Never smoker Tobacco Type: Cigarettes Hx Alcohol Use: Yes Alcohol type: wine Hx Substance Use: No Preferred Language: Andorran Communication Ability: Effective Size Roller Operator Required: No Beliefs That Will Affect Care: None marital status: Single Current Living Situation: Alone Current Living Situation Comment: senior apartment Other Information That Helps Us Care for You: No Feels Safe at Home: Yes Safety Concerns: Feels Safe At This Time Assistive Devices: Glasses Review of Systems Review of Systems: All systems reviewed & are unremarkable except as noted in HPI & below Physical Exam Physical Exam: Constitutional: WD/WN, obese, -[place], female, vitals as above, NAD, sitting up in bed, pleasant, conversing easily Head: Normocephalic, Atraumatic Eyes: PERRL, conjunctivae normal, anicteric sclerae ENMT: external ear and nose normal, oropharynx normal Neck: trachea midline, no thyromegaly normal visual inspection Respiratory: normal respiratory effort, lungs clear to auscultation, no wheeze, rales, rhonchi. Normal insp/exp effort, no accessory muscle use Cardiovascular: bradycardic rate, regular rhythm, soft 1/6 KELSEY noted RUSB, no edema Vessels: no JVD or carotid bruit Chest: The chest pain not reproducible, normal inspection of chest Abdomen: normal bowel sounds, soft, nontender, no hepatosplenomegaly Musculoskeletal: no cyanosis or clubbing, extremities motor strength 5/5 Skin: no rashes, warm and dry normal turgor Neurologic: PERRL, EOMI, accommodation nl, no face palsy, no dysarthria CN's II-XI intact bilaterally and moves all extremities Psychiatric: A+Ox3, euthymic affect Lymphatic: no cervical or axillary lymphadenopathy : deferred Results & Data Results & Data ([facility]) Vital Signs (Past 12 Hours) Vital Signs Temp Pulse Resp BP Pulse Ox 12/26/20 13:01 41 L 15 173/78 H 98 12/26/20 12:30 48 L 14 139/81 99 12/26/20 12:00 42 L 15 144/73 H 97 12/26/20 11:30 42 L 18 152/71 H 95 12/26/20 11:01 42 L 20 158/78 H 97 12/26/20 10:30 48 L 12 179/86 H 97 12/26/20 10:10 36.7 C 47 L 18 157/83 H 98 Medications Administered Discontinued Medications Lisinopril (Lisinopril 10 Mg Tab) 10 mg PO NOW STA Stop: 12/26/20 10:46 Last Admin: 12/26/20 11:19 Dose: 10 mg Documented by: [id number] Potassium Chloride (Potassium Chloride Crtab 20 Meq Tabcr) 40 meq PO NOW STA Stop: 12/26/20 12:30 Last Admin: 12/26/20 13:11 Dose: 40 meq Documented by: [id number] ECG Rate (beats per minute): 48 Rhythm: sinus bradycardia Findings: + T-wave inversion (inferior) COVID-19 Results Results COVID-19 Adm Lab Results: RBC 4.44 M/uL (4.2-5.4) 12/26/20 WBC 6.89 K/uL (4.8-10.8) 12/26/20 Hgb 13.6 g/dL (12.0-16.0) 12/26/20 Hct 39.7 % (37-47) 12/26/20 Plt Count 262 K/uL (130-400) 12/26/20 Neutrophils (%) (Auto) 61.2 % 12/26/20 Lymphocytes (%) (Auto) 31.6 % 12/26/20 Monocytes # (Auto) 0.44 K/uL (0.11-0.59) 12/26/20 Eosinophils # (Auto) 0.04 K/uL (0-0.5) 12/26/20 Immature Granulocyte % (Auto) 0.1 % 12/26/20 Neutrophils # (Auto) 4.21 K/uL (1.4-6.5) 12/26/20 Lymphocytes # (Auto) 2.18 K/uL (1.2-3.4) 12/26/20 Monocytes # (Auto) 0.44 K/uL (0.11-0.59) 12/26/20 Eosinophils # (Auto) 0.04 K/uL (0-0.5) 12/26/20 Basophils # (Auto) 0.01 K/uL (0-0.2) 12/26/20 Immature Granulocyte # (Auto) 0.01 K/uL (0.00-0.02) 12/26/20 Na 142 mmol/L (136-145) 12/26/20 K 3.7 mmol/L (3.5-5.1) 12/26/20 Cl 109 mmol/L (98-107) H 12/26/20 CO2 26 mmol/L (21-32) 12/26/20 Anion Gap 7.0 (3-11) 12/26/20 BUN 11 mg/dl (7-18) 12/26/20 Creatinine 0.70 mg/dl (0.6-1.2) 12/26/20 BUN/Creatinine Ratio 15.9 (10-20) 12/26/20 Glucose Level 106 mg/dl (70-99) H 12/26/20 Ca 9.2 mg/dl (8.5-10.1) 12/26/20 Total Bilirubin 1.1 mg/dl (0.2-1) H 12/26/20 AST/SGOT 9 U/L (15-37) L 12/26/20 ALT/SGPT 13 U/L (12-78) 12/26/20 Alkaline Phosphatase 95 U/L (45-117) 12/26/20 Total Protein 7.4 gm/dl (6.4-8.2) 12/26/20 Albumin 3.3 gm/dl (3.4-5.0) L 12/26/20 Globulin 4.1 gm/dl (2.5-4.0) H 12/26/20 Albumin/Globulin Ratio 0.8 (0.9-2) L 12/26/20 Total CK 52 U/L (26-192) 12/26/20 Troponin I < 0.015 ng/ml (0-0.045) 12/26/20 COVID-19 PCR NEGATIVE (Negative) 12/26/20 Influenza Virus Type A (PCR) Negative (Neg) 12/26/20 Influenza Virus Type B (PCR) Negative (Neg) 12/26/20 Chest X-Ray 12/26/20 Code Status & VTE Plan Code Status Full Code VTE Prophylaxis Plan VTE Prophylaxis will be ordered: Yes Supervising Physician Co-Signing Physician Notes Patient is a 70-year-old female with history of hypertension, chronic bradycardia, obstructive sleep apnea and other medical problems presents with history of dizziness, near syncopal episode, intermittent retrosternal chest discomfort since 2 days duration. She was found to be in hypertensive urgency while in ED. CT head showed no acute intracranial abnormality. CTA was unremarkable. Carotid ultrasound showed no evidence of hemodynamically significant stenosis. Patient states that his bradycardia is normal for her as she was very active previously. Please review HPI for complete details of presentation. Patient is admitted for management of dizziness, near syncopal episode, ongoing intermittent chest pain, uncontrolled hypertension. Given hi story of sleep apnea and intolerance to CPAP likely contributing to uncontrolled hypertension. Patient states having intolerance to antihypertensives in the past. Will place her on med telemetry to monitor for bradyarrhythmias. Will obtain orthostatics, echo. Will discontinue clonidine and start on hydralazine given bradycardia. Will trend cardiac enzymes and repeat EKG in the morning keep her n.p.o. after midnight for possible stress test. Will consult cardiology. I personally reviewed the record. Patient is interviewed and examined at bedside. Patient's care is coordinated with Corie Antoine PA-C. Please refer to the documentation above for details of patient's presentation and for discussion of other issues. (1) Hypertension Hypertension type: unspecified Qualified Code(s): I10 - Essential (primary) hypertension
[2020-12-26 14:02] LABS: Influenza A virus by PCR Negative (Neg); Influenza B virus by PCR Negative (Neg); RSV by PCR Negative (Neg); SARS CoV2 RNA(COVID-19) InHosp NEGATIVE (Negative)
--- NOTE | 2020-12-26 14:12 | XRay Report ---
XR chest 1V portable CLINICAL HISTORY: Hypertension COMPARISON STUDY: 12/25/2020 FINDINGS: The heart remains mildly enlarged. There is aortic tortuosity/ectasia. There is persistent elevation left hemidiaphragm. There is mild chronic interstitial thickening similar to the prior stud y. There is no lobar consolidation. There are no significant pleural effusions. There is no overt annamarie lure.[ IMPRESSION: Chronic findings unchanged from the preceding study. No active disease in the chest.. ACT 112: Negative or not required by law. Electronically signed by: Yaniv Hackett M.D. 12/26/2020 11:10 AM
--- NOTE | 2020-12-26 14:43 | Ultrasound Report ---
CAROTID ARTERY ULTRASOUND CLINICAL HISTORY: near syncope COMPARISON STUDY: None. TECHNIQUE: Real-time, grayscale, and color Doppler sonography of the carotid and vertebral arteries w as performed. Images were viewed in the transverse and longitudinal planes. FINDINGS: There is minimal atherosclerotic plaque. Velocity measurements are listed below. COMMON CAROTID PEAK SYSTOLIC VELOCITY (CM/S): RIGHT 50 LEFT 73 ICA PEAK SYSTOLIC VELOCITY (CM/S): RIGHT 73 LEFT 52 Systolic ratios between the internal to common carotid arteries are normal. Antegrade flow is seen in the vertebral arteries. The external carotid arteries are patent. Blood pressure in the right arm measured 158/78. Blood pressure in the left arm measured 152/71. IMPRESSION: No evidence for a hemodynamically significant stenosis. ACT 112: Negative or not required by law. Electronically signed by: El Quevedo M.D. 12/26/2020 2:41 PM
--- NOTE | 2020-12-26 15:21 | Emergency Department Note ---
Impression & Plan Hypertension ED Provider Note NAME: LILIANA BENITEZ AGE: 70 SEX: F : 1950 ARRIVES VIA: Ambulance INFORMANT: Patient, ED PROVIDER(S): Rakesh Florez MD CHIEF COMPLAINT: head pain, chest pain, toe pain HPI: This is a 70-year-old female who presents emergency department complaining of high blood pressure in addition to head pain chest pain and toe pain. The patient was here in the emergency department several nights ago. The patient appears very anxious and is concerned about her blood pressure. She cannot believe that the emergency department sent her home with an elevated blood pressure. She did follow-up with her primary care physician who placed her on clonidine. The patient took 2 doses of clonidine yesterday however did not take her clonidine today. She notes she feels incredibly weak. She reports nothing seems to make the weakness any better or worse. She reports nothing seems to make the chest pain better or worse. She describes the pain as an ache with no radiation that comes and goes. She reports it does not appear to be related to exertion. ROS: See above HPI for pertinent positives & negatives. A total of 10 systems reviewed and were otherwise negative. PAST MEDICAL HISTORY: See Below PAST SURGICAL HISTORY: See Below FAMILY HISTORY: See Below SOCIAL HISTORY: See Below HOME MEDICATIONS: See Below ALLERGIES: See Below VITALS: See Below PHYSICAL EXAMINATION: VITAL SIGNS - Vital signs and nursing notes were reviewed. GENERAL - 70-year-old female appearing stated age who is in no acute distress. Communicates well with provider and answers questions appropriately. SKIN - Without rashes. HEAD - NC/AT. EYES - PERRL with EOMI bilaterally. Sclera anicteric. Palpebral conjunctiva pink and moist with no injection noted. EARS - No deformities of external structures noted on gross examination bilaterally. NOSE - Midline and without cyanosis. No epistaxis or purulent drainage noted. Septum midline without deviation or septal hematoma noted. MOUTH/OROPHARYNX - Without perioral cyanosis. Buccal mucosa pink and moist and without leukoplakia. Tongue midline with equal elevation of palate bilaterally. No tonsillar hypertrophy, erythema, or exudates noted. NECK - Neck with FROM. Supple to palpation. No nuchal rigidity. LUNGS - Chest wall symmetric without accessory muscle use, intercostals retractions, or central cyanosis. Normal vesicular breath sounds CTA B/L. No wheezes, rales, or rhonchi appreciated. CARDIAC - RRR with S1/S2. No murmur, rubs, or gallops appreciated. ABDOMEN - Abdominal contour without pulsations or visible masses. BS normoactive all four quadrants. No tenderness, palpable masses, hepatospleno megaly, or ascites noted. EXTREMITIES - No clubbing or peripheral cyanosis. No pretibial edema present. +3/5 radial, posterior tibial, and dorsalis pedis pulses palpated throughout. +5/5 strength noted in UE/LE bilaterally. NEUROLOGIC - Cranial nerves II through XII grossly intact. Sensory intact to light touch throughout. Patellar reflexes +2/4. PSYCH - A&Ox3 and cooperates fully with examiner. Pt is very pleasant and interacts well with examiner. MEDICAL DECISION MAKING: Patient was seen and evaluated as above in room C12. Review was performed of nursing notes and vital signs. I did review pertinent previous visits and patient history. After obtaining a thorough history and physical examination the above work up was performed. This 70-year-old female who presents emergency department complaining of multiple complaints. Patient denies any fevers or chills. The patient herself appears incredibly anxious about her blood pressure. I did talk to her at length about her blood pressure and noted that the patient did not take her blood pressure medication this morning and that is probably the reason she is not feeling well. I did offer to switch her blood pressure medication to a new 1 so we have started lisinopril. Patient at this point does not feel comfortable going home. I did discuss the case with the hospitalist service who was kind enough to come and see the patient. An order was placed for continuous cardiac monitoring. The monitor shows a rate of 50 with Sinus Bradycardia rhythm. The patient was evaluated during a period of high volume and high acuity during the global COVID-19 pandemic, and that diagnosis was suspected/considered upon their initial presentation. Their evaluation, treatment and testing was consistent with current guidelines for patients who present with complaints or symptoms that may be related to COVID-19. Patient was seen while provider was wearing PPE. Triage Nursing notes reviewed. Prior medical records reviewed Vital Signs: reviewed and remarkable for no significant abnormalities Differential diagnosis: Benign hypertension, hypertensive emergency, cardiovascular pathology, toxicologic, pheochromocytoma, electrolyte abnormality, renal disease, endorgan damage, as well as other pathologies. ER treatment provided: See below Diagnostics interpreted by me: ECG: EKG shows sinus bradycardia no ST elevation or depression QTC is 444 ventricular rate is 48 when compared to EKG of 12/25/2020 premature supra ventricular complexes are no longer present. Laboratory studies: As stated above and show below. Imaging studies: See below Consultation(s): Internal Medicine Past Med/Surg History Medical History Acute cholecystitis Hypertension Sinus bradycardia Sleep apnea Surgical History deliv NOS-unsp H/O cataract extraction History of ERCP History of laparoscopic cholecystectomy Family History Mother CHF (congestive heart failure) Hypertension Diabetes Social History Smoking Status: Never smoker Tobacco Type: Cigarettes Hx Alcohol Use: Yes Alcohol type: wine Hx Substance Use: No Preferred Language: Italian Communication Ability: Effective Tobacco Sorter Required: No Beliefs That Will Affect Care: None marital status: Single Current Living Situation: Alone Current Living Situation Comment: senior apartment Feels Safe at Home: Yes Assistive Devices: Glasses Allergies Allergies Allergy/AdvReac Type Severity Reaction Status Date / Time No Known Drug Allergies Allergy Unknown . Verified 12/26/20 11:45 Home Meds Home Medications Medication Instructions Recorded Confirmed ascorbic acid (vitamin C) [Vitamin 1,000 mg PO DAILY 05/17/20 12/26/20 C] Eye Vitamin Tab 1 tab PO DAILY 12/25/20 12/26/20 cholecalciferol (vitamin D3) 250 mcg PO Q OTHER DAY 12/25/20 12/26/20 [Vitamin D3] coenzyme Q10 [Co Q-10] 0 mg PO DAILY 12/25/20 12/26/20 vitamin D3-vitamin K2 1 tab PO Q OTHER DAY 12/25/20 12/26/20 aspirin 324 mg PO .TODAY IN AMBULANCE 12/26/20 12/26/20 cyanocobalamin (vitamin B-12) 0 mcg PO DAILY 12/26/20 12/26/20 [Vitamin B-12] vitamin A 0 unit PO DAILY 12/26/20 12/26/20 zinc 0 mg PO DAILY 12/26/20 12/26/20 Previous Rx's Medication Instructions Recorded cephalexin 500 mg PO QID 7 Days #28 cap 12/25/20 lisinopril 2.5 mg PO QAM #30 tab 12/28/20 Results & Data (ED) Vital Signs Vital Signs - 24 hr 12/26/20 10:10 12/26/20 10:30 12/26/20 11:01 Temperature 36.7 C Temperature Source Oral Pulse Rate 47 L 48 L 42 L Pulse Rate from SpO2 Sensor 49 L 43 L Pulse Rhythm Regular Pulse Strength Normal Respiratory Rate 18 12 20 Respiratory Effort / Characteristics Non-Labored Spontaneous Respiratory Depth Normal Respiratory Pattern Regular Blood Pressure 157/83 H 179/86 H 158/78 H Blood Pressure Mean 107 117 104 Pulse Oximetry 98 97 97 Oxygen Delivery Method Room Air Sepsis Recent Fever Within 48 Hours No Sepsis New/Unexplained Change in Mental Status No Sepsis Action Taken by Nursing No Action Required 12/26/20 11:30 12/26/20 12:00 12/26/20 12:30 Temperature Temperature Source Pulse Rate 42 L 42 L 48 L Pulse Rate from SpO2 Sensor 42 L 42 L 47 L Pulse Rhythm Pulse Strength Respiratory Rate 18 15 14 Respiratory Effort / Characteristics Respiratory Depth Respiratory Pattern Blood Pressure 152/71 H 144/73 H 139/81 Blood Pressure Mean 98 96 100 Pulse Oximetry 95 97 99 Oxygen Delivery Method Sepsis Recent Fever Within 48 Hours Sepsis New/Unexplained Change in Mental Status Sepsis Action Taken by Nursing 12/26/20 13:01 12/26/20 13:24 12/26/20 13:30 Temperature Temperature Source Pulse Rate 41 L 58 L 46 L Pulse Rate from SpO2 Sensor 42 L 54 L 44 L Pulse Rhythm Pulse Strength Respiratory Rate 15 20 13 Respiratory Effort / Characteristics Respiratory Depth Respiratory Pattern Blood Pressure 173/78 H 173/71 H 184/83 H Blood Pressure Mean 109 105 116 Pulse Oximetry 98 97 96 Oxygen Delivery Method Sepsis Recent Fever Within 48 Hours Sepsis New/Unexplained Change in Mental Status Sepsis Action Taken by Nursing Laboratory Data Result diagrams: 12/27/20 07:17 12/28/20 06:33 Lab Results 12/26/20 12/26/20 12/26/20 Range/Units 10:11 10:45 10:45 WBC 6.89 (4.8-10.8) K/uL RBC 4.44 (4.2-5.4) M/uL Hgb 13.6 (12.0-16.0) g/dL Hct 39.7 (37-47) % MCV 89.4 (80-100) fL MCH 30.6 (25-34) pg MCHC 34.3 (32-36) g/dL RDW Std Deviation 42.7 (36.4-46.3) fL RDW Coeff of Lizette 13.0 (11.5-14.5) % Plt Count 262 (130-400) K/uL MPV 10.3 (7.4-10.4) fL Immature Gran % (Auto) 0.1 % Neut % (Auto) 61.2 % Lymph % (Auto) 31.6 % [place] % (Auto) 6.4 % Eos % (Auto) 0.6 % Baso % (Auto) 0.1 % Neut # (Auto) 4.21 (1.4-6.5) K/uL Lymph # (Auto) 2.18 (1.2-3.4) K/uL [place] # (Auto) 0.44 (0.11-0.59) K/uL Eos # (Auto) 0.04 (0-0.5) K/uL Baso # (Auto) 0.01 (0-0.2) K/uL Immature Gran # (Auto) 0.01 (0.00-0.02) K/uL Sodium 142 (136-145) mmol/L Potassium 3.7 (3.5-5.1) mmol/L Chloride 109 H (98-107) mmol/L Carbon Dioxide 26 (21-32) mmol/L Anion Gap 7.0 (3-11) BUN 11 (7-18) mg/dl Creatinine 0.70 (0.6-1.2) mg/dl Est Cr Clr Drug Dosing Not Reportable Est GFR ( Amer) 101.0 Est GFR (Non-Af Amer) 87.2 BUN/Creatinine Ratio 15.9 (10-20) Glucose 106 H (70-99) mg/dl Calcium 9.2 (8.5-10.1) mg/dl Total Bilirubin 1.1 H D (0.2-1) mg/dl AST 9 L (15-37) U/L ALT 13 (12-78) U/L Alkaline Phosphatase 95 (45-117) U/L Total Creatine Kinase 52 (26-192) U/L CK-MB (CK-2) < 1.0 (0.5-3.6) ng/ml CK/CKMB % Calc TNP Troponin I < 0.015 (0-0.045) ng/ml Total Protein 7.4 (6.4-8.2) gm/dl Albumin 3.3 L (3.4-5.0) gm/dl Globulin 4.1 H (2.5-4.0) gm/dl Albumin/Globulin Ratio 0.8 L (0.9-2) TSH 2.660 (0.300-4.500) uIu/ml Administered Medications Discontinued Medications Cephalexin HCl (Cephalexin 500 Mg Cap) 500 mg PO QID [facility] Stop: 12/31/20 16:59 Last Admin: 12/28/20 12:30 Dose: 500 mg Documented by: [id number] Admin: 12/28/20 07:44 Dose: 500 mg Documented by: [id number] Admin: 12/27/20 20:36 Dose: 500 mg Documented by: [id number] Admin: 12/27/20 17:26 Dose: 500 mg Documented by: [id number] Admin: 12/27/20 13:08 Dose: 500 mg Documented by: [id number] Admin: 12/27/20 09:03 Dose: 500 mg Documented by: [id number] Admin: 12/26/20 20:17 Dose: 500 mg Documented by: [id number] Admin: 12/26/20 18:30 Dose: 500 mg Documented by: [id number] Enoxaparin Sodium (Enoxaparin Inj 40 Mg/0.4 Ml Syr) 40 mg SQ Q24H PAT Stop: 01/25/21 21:59 Last Admin: 12/27/20 20:37 Dose: 40 mg Documented by: [id number] Admin: 12/26/20 22:10 Dose: 40 mg Documented by: [id number] Hydralazine HCl (Hydralazine 10 Mg Tab) 10 mg PO NOW STA Stop: 12/26/20 13:42 Last Admin: 12/26/20 15:28 Dose: 10 mg Documented by: [id number] Hydralazine HCl (Hydralazine 10 Mg Tab) 10 mg PO Q8H PAT Stop: 01/25/21 21:59 Last Admin: 12/27/20 05:59 Dose: 10 mg Documented by: [id number] Admin: 12/26/20 22:11 Dose: 10 mg Documented by: [id number] Sodium Chloride (Nss 1000ml) 1,000 mls @ 80 mls/hr IV .[id number] [facility] Stop: 12/28/20 01:14 Last Infusion: 12/27/20 12:12 Dose: 0 mls/hr Documented by: [id number] Admin: 12/27/20 00:50 Dose: 80 mls/hr Documented by: [id number] Ioversol (Optiray 350 500ml) 125 ml IV ONCE ONE Stop: 12/27/20 00:45 Last Admin: 12/27/20 00:45 Dose: 96 ml Documented by: [id number] Lisinopril (Lisinopril 10 Mg Tab) 10 mg PO NOW STA Stop: 12/26/20 10:46 Last Admin: 12/26/20 11:19 Dose: 10 mg Documented by: [id number] Lisinopril (Lisinopril 2.5 Mg Tab) 2.5 mg PO QAM [facility] Stop: 01/26/21 12:44 Last Admin: 12/28/20 07:43 Dose: 2.5 mg Documented by: [id number] Admin: 12/27/20 13:24 Dose: 2.5 mg Documented by: [id number] Potassium Chloride (Potassium Chloride Crtab 20 Meq Tabcr) 40 meq PO NOW STA Stop: 12/26/20 12:30 Last Admin: 12/26/20 13:11 Dose: 40 meq Documented by: [id number] Vitamin D (Cholecalciferol 1,000 Units 25 Mcg Tab) 5,000 units PO DAILY [facility] Stop: 01/26/21 08:59 Last Admin: 12/28/20 07:43 Dose: 5,000 units Documented by: [id number] Admin: 12/27/20 09:03 Dose: 5,000 units Documented by: [id number] Imaging Data Radiologist's Impression: Chest X-Ray 12/26/20 10:45 XR chest 1V portable CLINICAL HISTORY: Hypertension COMPARISON STUDY: 12/25/2020 FINDINGS: The heart remains mildly enlarged. There is aortic tortuosity/ectasia. There is persistent elevation left hemidiaphragm. There is mild chronic interstitial thickening similar to the prior study. There is no lobar consoli dation. There are no significant pleural effusions. There is no overt failure.[ IMPRESSION: Chronic findings unchanged from the preceding study. No active disease in the chest.. ACT 112: Negative or not required by law. Electronically signed by: Yaniv Hackett M.D. 12/26/2020 11:10 AM Carotid Doppler Study 12/26/20 13:40 CAROTID ARTERY ULTRASOUND CLINICAL HISTORY: near syncope COMPARISON STUDY: None. TECHNIQUE: Real-time, grayscale, and color Doppler sonography of the carotid and vertebral arteries was performed. Images were viewed in the transverse and longitudinal planes. FINDINGS: There is minimal atherosclerotic plaque. Velocity measurements are listed below. COMMON CAROTID PEAK SYSTOLIC VELOCITY (CM/S): RIGHT 50 LEFT 73 ICA PEAK SYSTOLIC VELOCITY (CM/S): RIGHT 73 LEFT 52 Systolic ratios between the internal to common carotid arteries are normal. Antegrade flow is seen in the vertebral arteries. The external carotid arteries are patent. Blood pressure in the right arm measured 158/78. Blood pressure in the left arm measured 152/71. IMPRESSION: No evidence for a hemodynamically significant stenosis. ACT 112: Negative or not required by law. Electronically signed by: El Quevedo M.D. 12/26/2020 2:41 PM Discharge Plan Visit Data Chief Complaint: Chest Pain Stated Complaint: CHEST PRESSURE ED Provider: Rakesh Florez Discharge Problem: Hypertension Patient Disposition: Admitted As Inpatient Condition: Good Discharge Instructions Interventions: ED Discharge Assessment Last Done: 12/26/20 16:51 Discharge Problem: Hypertension Qualifiers: Hypertension type: unspecified Qualified Code(s): I10 - Essential (primary) hypertension
[2020-12-26] MEDS ORDERED: NITROGLYCERIN SL 0.4 MG/TAB TAB SL PRN (16:45)
[2020-12-26] MEDS ORDERED: MAGNESIUM HYDROXIDE SUSP 30 ML UDC PO PRN (16:45)
[2020-12-26] MEDS ORDERED: ALUMINUM/MAGNESIUM SUSP 30 ML UDC PO PRN (16:45)
[2020-12-26] MEDS ORDERED: ONDANSETRON INJ 2 MG/ML 2 ML VIAL IV PRN (16:45)
[2020-12-26] MEDS ORDERED: ACETAMINOPHEN 325 MG TAB PO PRN (16:45)
[2020-12-26] MEDS ORDERED: POLYETHYLENE (MIRALAX) 17 GM PACK PO PRN (16:45)
[2020-12-26] MEDS: cephALEXin 500 MG CAP PO SCH ×2 (18:30→20:17)
[2020-12-26 19:11] LABS: Appearance Urine Clear (Clear); Bilirubin Urine Negative (Negative); Blood Urine Negative (Negative); Color Urine Dark Yellow; Glucose Urine UA Negative (Negative); Ketones Urine 2+ (Negative); Leukocyte Esterase Urine Negative (Negative); Nitrite Urine Negative (Negative); Protein Urine Negative (Negative); Specific Gravity Urine 1.018 (1.000-1.030); Urobilinogen Urine Negative (Negative); pH Urine 6.5 (4.5-7.5)
[2020-12-26] MEDS: ENOXAPARIN INJ 40 MG/0.4 ML SYR SQ SCH (22:10)
[2020-12-26] MEDS: hydrALAZINE 10 MG TAB PO SCH (22:11)
[2020-12-26 23:28] LABS: D Dimer 1100 ug/L FEU (0-500)
[2020-12-27] MEDS ORDERED: SODIUM CHLORIDE 0.9% 1000ML 1,000 ML IV SCH (00:15)
[2020-12-27] MEDS ORDERED: OPTIRAY 350 500ml IV ONE (00:44)
[2020-12-27] MEDS: hydrALAZINE 10 MG TAB PO SCH (05:59)
--- NOTE | 2020-12-27 06:10 | Electrocardiogram Report ---
Test Reason : Blood Pressure : / mmHG Vent. Rate : 048 BPM Atrial Rate : 048 BPM P-R Int : 166 ms QRS Dur : 126 ms QT Int : 498 ms P-R-T Axes : 042 -26 -04 degrees QTc Int : 444 ms Sinus bradycardia Non-specific intra-ventricular conduction block Nonspecific T wave abnormality Abnormal ECG When compared with ECG of 25-DEC-2020 01:59, Premature supraventricular complexes are no longer Present QRS axis Shifted left Minimal criteria for Inferior infarct are no longer Present T wave inversion now evident in Inferior leads Nonspecific T wave abnormality now evident in Anterolateral leads Confirmed by Sae Fagan ([id number]) on 12/27/2020 6:10:34 AM Referred By: REFERRED SELF Confirmed By:Sae Fagan
--- NOTE | 2020-12-27 07:18 | CT Scan Report ---
CT angio chest PE protocol CT DOSE: 758.89 mGy.cm HISTORY: 70 years-old Female with PE. Acute shortness of breath with chest pain TECHNIQUE: Multiple CTA images of the chest were obtained after the intravenous administration of 96 ml Optiray. Coronal and sagittal MIPS were obtained from the axial data set and were submitted for r eview. All measurements were obtained according to NASCET criteria. A dose lowering technique was ut ilized adhering to the principles of ALARA. COMPARISON: CTA chest 12/25/2020 FINDINGS: CTA: Moderate cardiomegaly. No pericardial effusion. No thoracic aortic aneurysm or dissection. There is p atency of the imaged great vessels. Mild dilation of the main pulmonary artery measures 3.5 cm. Pulmo nary arterial tree is opacified to the level of the segmental branches and demonstrates no filling de fects to suggest thromboembolic disease. CT CHEST: Unremarkable thyroid. No adenopathy. No pneumothorax, pleural effusion, airspace consolidation or ove rt pulmonary edema. No airspace consolidation typical for pneumonia. Mild subsegmental bibasilar atel ectasis. There are no suspicious pulmonary nodules or masses. No pneumoperitoneum. Cholecystectomy. No acute process of the imaged upper abdomen. No acute fracture . IMPRESSION: 1. Stable exam from the study obtained on 12/25/2020. No acute intrathoracic abnormality or pulmonary emboli. 2. No pleural effusion or airspace consolidation to suggest pneumonia. 3. Moderate cardiomegaly with findings suggestive of pulmonary artery hypertension. ACT 112: Negative or not required by law. The above report was generated using voice recognition software. It may contain grammatical, syntax o r spelling errors. Electronically signed by: Rudy Shepard M.D. 12/27/2020 7:16 AM
[2020-12-27 07:41] LABS: Hematocrit (blood only) 37.9 % (37-47); Hemoglobin 12.9 g/dL (12.0-16.0); Mean Corpuscular Hemoglobin 30.6 pg (25-34); Mean Corpuscular Volume 89.8 fL (80-100); Mean Platelet Volume 10.1 fL (7.4-10.4); Platelet Count 234 K/uL (130-400); RDW Coefficient of Variation 13.2 % (11.5-14.5); RDW Standard Deviation 43.3 fL (36.4-46.3); Red Blood Count 4.22 M/uL (4.2-5.4); White Blood Count 6.65 K/uL (4.8-10.8)
[2020-12-27 08:09] LABS: Albumin Level 3.1 gm/dl (3.4-5.0); Calcium 8.9 mg/dl (8.5-10.1); Potassium 3.9 mmol/L (3.5-5.1)
[2020-12-27 08:20] LABS: Albumin Globulin Ratio 0.8 (0.9-2); BUN Creatinine Ratio 19.5 (10-20); Bilirubin,Total 0.9 mg/dl (0.2-1); Creatinine Clr Calc Pharmacy 98.1 ml/min; Est GFR (African American) 106.9 ml/min; Est GFR (Non-African American) 92.2 ml/min; Globulin 3.7 gm/dl (2.5-4.0); Total Protein 6.8 gm/dl (6.4-8.2)
--- NOTE | 2020-12-27 08:35 | Ultrasound Report ---
ULTRASOUND BILATERAL LOWER EXTREMITY VENOUS CLINICAL HISTORY: Elevated d-dimer. Syncope. COMPARISON STUDY: No priors. TECHNIQUE: Real-time, grayscale, and color Doppler sonography of the deep veins of the right and left lower extremity was performed from the inguinal crease to the calf. Compression and augmentation wer e utilized. FINDINGS: There is no sonographic evidence of deep venous thrombosis identified in the right or left lower extremity. The common femoral, superficial femoral, and popliteal veins are patent and normally compressible bilaterally. The greater saphenous vein and the profunda femoris vein at the junction w ith the common femoral vein are clear in both legs. The visualized calf veins are patent bilaterally. IMPRESSION: There is no sonographic evidence of deep venous thrombosis identified in the right or lef t lower extremity. ACT 112: Negative or not required by law. Electronically signed by: Tim Andrews M.D. 12/27/2020 8:34 AM
[2020-12-27] MEDS ORDERED: NON-FORMULARY MEDICATION (Coenzyme Q10 [Co Q-10] 100 mg Capsule) PO SCH (09:00)
[2020-12-27] MEDS: CHOLECALCIFEROL 1,000 UNITS 25 MCG TAB PO SCH (09:03)
[2020-12-27] MEDS: cephALEXin 500 MG CAP PO SCH ×4 (09:03→20:36)
--- NOTE | 2020-12-27 12:13 | Cardiology Consultation ---
Date of Consultation December 27, 2020 Assessment & Plan (1) Hypertension: -Patient has had elevated blood pressure readings during hospital encounters dating back at least 3 years. -I seen her previously as an outpatient in 2017 and recommended antihypertensive treatment, lisinopril 5 mg was initiated at that time but patient discontinued it a month later per her outpatient record. -Even her "good "blood pressure measurements are actually above goal. -Patient has declined antihypertensive treatment despite being counseled that it would be of benefit to her by multiple providers in the past. -I think that the plan of clonidine on a as needed basis would likely not be effective as it would depend on the patient taking her home blood pressure and making decisions based on such. -Hydralazine is likely not a good long-term choice given need to take the medication 3-4 times per day. -Obviously any medication that lowers the heart rate needs to be avoided. -Would avoid amlodipine given recent lower extremity edema (edema has since resolved). -Patient is very concerned with regards to medication related side effects. I think it would be reasonable to start lisinopril again, patient willing to start 2.5 mg daily which I think is a step in the right direction. She already has a follow-up visit with primary care next week at which time the dose can be titrated as tolerated. (2) Near syncope: -Patient feeling better, symptoms resolved. (3) Sinus bradycardia: -No high-grade AV block noted. -No intervention indicated. (4) Chest pain: -Patient does not endorse any symptoms of angina per my discussion with her. -Troponin negative x3. -Resting wall motion normal on echo. -No further work-up indicated at this time, however treatment for hypertension recommended. History of Present Illness Attending Physician: Larry Gonzalez MD History of Present Illness Iliana Winchester is a 70-year-old female seen in cardiology consultation per the request of Dr. Bowles for the evaluation of sinus bradycardia, hypertension, and recent dizziness. The patient recalls recent dental cleaning and then eye examination, and then felt poorly thereafter. She noted mild bilateral lower extremity edema, lightheadedness, and near syncope without bob syncope. She had been seen by primary care and significant hypertension noted. Telemetry reveals sinus rhythm and sinus arrhythmia with rates ranging from the upper 48/min range to the 60s at rest. Serial blood pressure measurements while hospitalized have been elevated, most recently at 175/84. Allergies Allergy/AdvReac Type Severity Reaction Status Date / Time No Known Drug Allergies Allergy Unknown . Verified 12/26/20 11:45 Home Medications Medication Instructions Recorded Confirmed Type ascorbic acid (vitamin C) [Vitamin 1,000 mg PO DAILY 05/17/20 12/26/20 History C] Eye Vitamin Tab 1 tab PO DAILY 12/25/20 12/26/20 History cephalexin 500 mg PO QID 7 Days #28 cap 12/25/20 12/26/20 Rx cholecalciferol (vitamin D3) 250 mcg PO Q OTHER DAY 12/25/20 12/26/20 History [Vitamin D3] coenzyme Q10 [Co Q-10] 0 mg PO DAILY 12/25/20 12/26/20 History vitamin D3-vitamin K2 1 tab PO Q OTHER DAY 12/25/20 12/26/20 History aspirin [Baby Aspirin] 324 mg PO .TODAY IN AMBULANCE 12/26/20 12/26/20 History clonidine HCl 0.1 mg PO BID PRN 12/26/20 12/26/20 History cyanocobalamin (vitamin B-12) 0 mcg PO DAILY 12/26/20 12/26/20 History [Vitamin B-12] vitamin A 0 unit PO DAILY 12/26/20 12/26/20 History zinc 0 mg PO DAILY 12/26/20 12/26/20 History Patient History Medical History Acute cholecystitis Hypertension Sinus bradycardia Sleep apnea Surgical History deliv NOS-unsp H/O cataract extraction History of ERCP History of laparoscopic cholecystectomy Family History Mother CHF (congestive heart failure) Hypertension Diabetes Social History Smoking Status: Never smoker Tobacco Type: Cigarettes Hx Alcohol Use: Yes Alcohol type: wine Hx Substance Use: No Preferred Language: Telugu Communication Ability: Effective Transit Mix Operator Required: No Beliefs That Will Affect Care: None marital status: Single Current Living Situation: Alone Current Living Situation Comment: senior apartment Other Information That Helps Us Care for You: No Feels Safe at Home: Yes Safety Concerns: Feels Safe At This Time Assistive Devices: Glasses Physical Exam Physical Exam: Temp Pulse Resp BP Pulse Ox 36.9 C 55 L 18 175/84 H 98 12/27/20 11:59 12/27/20 11:59 12/27/20 11:59 12/27/20 11:59 12/27/20 11:59 Constitutional: WD/WN, vitals as above Respiratory: normal respiratory effort, lungs clear to auscultation Cardiovascular: RRR, no murmur, no edema Lower extremity edema resolved per patient Gastrointestinal (Abdomen): normal bowel sounds, soft, nontender, no hepatosplenomegaly Neurologic: PERRL, EOMI, accommodation nl, no face palsy, no dysarthria Results & Data ([facility]) Vital Signs (Past 12 Hours) Vital Signs Temp Pulse Pulse Resp BP Pulse Ox 12/27/20 11:59 36.9 C 55 L 18 175/84 H 98 12/27/20 07:51 45 L 12/27/20 07:07 37.0 C 53 L 20 147/77 H 97 12/27/20 03:46 36.6 C 62 20 147/83 H 96 12/27/20 01:11 46 L 12/27/20 01:10 47 L Laboratory Results Cardiac Enzymes 12/26/20 12/26/20 12/27/20 Range/Units 15:50 22:38 07:17 AST 9 L (15-37) U/L Troponin I < 0.015 < 0.015 (0-0.045) ng/ml CBC 12/27/20 Range/Units 07:17 WBC 6.65 (4.8-10.8) K/uL RBC 4.22 (4.2-5.4) M/uL Hgb 12.9 (12.0-16.0) g/dL Hct 37.9 (37-47) % Plt Count 234 (130-400) K/uL Comprehensive Metabolic Panel 12/27/20 Range/Units 07:17 Sodium 142 (136-145) mmol/L Potassium 3.9 (3.5-5.1) mmol/L Chloride 111 H (98-107) mmol/L Carbon Dioxide 25 (21-32) mmol/L BUN 12 (7-18) mg/dl Creatinine 0.59 L (0.6-1.2) mg/dl Glucose 83 (70-99) mg/dl Calcium 8.9 (8.5-10.1) mg/dl AST 9 L (15-37) U/L ALT 10 L (12-78) U/L Alkaline Phosphatase 87 (45-117) U/L Total Protein 6.8 (6.4-8.2) gm/dl Albumin 3.1 L (3.4-5.0) gm/dl Intake and Output 12/26/20 12/27/20 12/27/20 22:59 06:59 14:59 Intake Total 400 / 400 Balance 400 / 400 Intake: Oral 400 / 400 Other: Other Intake Source npo Weight 109.3 kg 102.5 kg Weight Measurement Method Standing Scale Standing Scale Diagnostic Findings EKG 12/26/2020 at 10:07 AM revealed sinus bradycardia at 48 bpm nonspecific intraventricular conduction delay, nonspecific repolarization abnormalities. Repeat tracing 12/27/2020, sinus bradycardia 52 bpm, nonspecific intraventricular conduction delay. (1) Hypertension Hypertension type: unspecified Qualified Code(s): I10 - Essential (primary) hypertension
[2020-12-27] MEDS ORDERED: Nursing to Pharmacy Communication SCH (12:15)
[2020-12-27] MEDS: lisinopril 2.5 MG TAB PO SCH (13:24)
--- NOTE | 2020-12-27 14:19 | Hospitalist Progress Note ---
Date of Service December 27, 2020 Assessment & Plan (1) Near syncope: (2) Chest pain: (3) Hypertension: This is a 70-year-old female who has significant past medical history of HTN, chronic sinus bradycardia, aortic valve sclerosis, ORION intolerant to CPAP who presents to ED secondary to dizziness, near syncope, chest pain off and on x2 days. Pt with 2 recent episodes of near syncope and previously uncontrolled HTN managed with lifestyle modifications. Pt has been recommended to start anti hypertensives by cardiology and nephrology in past, but pt resistant, now willing. She has not tolerated lisinopril in the past. Syncope work up as below_ She has unremarkable CTA of the head and CT of the head, carotid Doppler, echocardiogram and did not have any arrhythmias Echo of the heart showed: LV wall motion was normal, EF 55 to 60%, mild MR, grade 1 diastolic dysfunction and Doppler findings do not suggest pulmonary hypertension. She did not have any clot in the legs and CTA was negative for any pulmonary embolism She has been going to the bathroom and wandering around the room without any significant symptoms Uncontrolled hypertension Remains reasonably stable in medical telemetry unit No significant bradycardia and/or arrhythmias noted on monitor She has been ruled out for any ACS Appreciate cardiology input and recommendation She has been having high blood pressure for the last few years but is very resistant to take any medication After long discussion with the patient by the pet food deboner and myself she was agreeable to take lisinopril Clonidine and hydralazine have been discontinued We will observe her tonight and likely discharge tomorrow (4) Sinus bradycardia: pt with chronic sinus bradycardia per ekgs from prior ? if dizziness/near syncope now attributing to this or if soley HTN related consult cards as above No bradyarrhythmias on monitor (5) Sleep apnea: intolerant/resistant to cpap likely part of uncontrolled HTN along with morbid obesity (6) History of recent dental procedure: pt states recent dental cleaning complained of dental pain was started on oral keflex - continue until complete Doubt any significant infection/dental abscess We will continue Keflex for now (7) DVT prophylaxis: SQ Lovenox Dispo: med tele PCP: Pilgram FULL CODE Likely discharge tomorrow Admission and Anticipated Discharge Date Admission Date: December 26, 2020 Subjective 12/27/2020 The patient was seen and examined in medical telemetry unit She has been complaining of ongoing dizziness and sudden increase in blood pressure with occasional jerks of the body Denies any headache, any blurred vision, any weakness in any particular side, any numbness and or tingling involving any of the extremities He has some discomfort in the right upper maxillary area Review of Systems Review of Systems: All systems reviewed and are unremarkable except as noted below Neurologic: + generalized weakness Physical Exam Physical Exam: Lying in bed comfortably Constitutional: well developed, well nourished and + obese; not ill appearing Eyes: PERRL, conjunctivae normal, anicteric sclerae ENMT: external ear and nose normal, oropharynx normal Neck: trachea midline, no thyromegaly Respiratory: no respiratory distress Auscultation: lungs clear to auscultation bilaterally Cardiovascular: Rate/Rhythm: regular rate and regular rhythm Heart Sounds: no murmur Extremities: + edema (Trace edema bilaterally) Gastrointestinal (Abdomen): Inspection/Auscultation: normal bowel sounds; abdomen not distended Percussion/Palpation: abdomen soft; abdomen nontender Musculoskeletal: No acute arthritis in any joint Neurologic: Alert, awake and oriented x3. No focal sensory and motor deficit appreciated Psychiatric: A+Ox3, euthymic affect Lymphatic: no cervical or axillary lymphadenopathy Results & Data Results & Data ([facility]) Vital Signs (Past 12 Hours) Vital Signs Temp Pulse Pulse Resp BP Pulse Ox 12/27/20 11:59 36.9 C 55 L 18 175/84 H 98 12/27/20 07:51 45 L 12/27/20 07:07 37.0 C 53 L 20 147/77 H 97 12/27/20 03:46 36.6 C 62 20 147/83 H 96 Laboratory Results Short CBC 12/27/20 Range/Units 07:17 WBC 6.65 (4.8-10.8) K/uL Hgb 12.9 (12.0-16.0) g/dL Hct 37.9 (37-47) % Plt Count 234 (130-400) K/uL BMP 12/27/20 07:17 Sodium 142 Potassium 3.9 Chloride 111 H Carbon Dioxide 25 BUN 12 Creatinine 0.59 L Glucose 83 Calcium 8.9 Cardiac Enzymes 12/26/20 12/26/20 Range/Units 15:50 22:38 Troponin I < 0.015 < 0.015 (0-0.045) ng/ml Liver Function 12/27/20 Range/Units 07:17 Total Bilirubin 0.9 (0.2-1) mg/dl AST 9 L (15-37) U/L ALT 10 L (12-78) U/L Alkaline Phosphatase 87 (45-117) U/L Albumin 3.1 L (3.4-5.0) gm/dl Urine 12/26/20 Range/Units 18:59 Urine Color Dark Yellow Urine Appearance Clear (Clear) Urine pH 6.5 (4.5-7.5) Ur Specific [place] 1.018 (1.000-1.030) Urine Protein Negative (Negative) Urine Glucose (UA) Negative (Negative) Medications Administered Current Inpatient Medications Acetaminophen (Acetaminophen 325 Mg Tab) 650 mg PO Q4H PRN PRN Reason: Pain or Fever Stop: 01/25/21 16:44 Al Hydrox/Mg Hydrox/Simethicone (Aluminum/Magnesium Susp 30 Ml Udc) 15 ml PO Q4H PRN PRN Reason: Dyspepsia Stop: 01/25/21 16:44 Cephalexin HCl (Cephalexin 500 Mg Cap) 500 mg PO QID [facility] Stop: 12/31/20 16:59 Last Admin: 12/27/20 13:08 Dose: 500 mg Documented by: Enoxaparin Sodium (Enoxaparin Inj 40 Mg/0.4 Ml Syr) 40 mg SQ Q24H [facility] Stop: 01/25/21 21:59 Last Admin: 12/26/20 22:10 Dose: 40 mg Documented by: Lisinopril (Lisinopril 2.5 Mg Tab) 2.5 mg PO QAM [facility] Stop: 01/26/21 12:44 Last Admin: 12/27/20 13:24 Dose: 2.5 mg Documented by: Magnesium Hydroxide (Magnesium Hydroxide Susp 30 Ml Udc) 30 ml PO Q12H PRN PRN Reason: Constipation Stop: 01/25/21 16:44 Nitroglycerin (Nitroglycerin Sl 0.4 Mg/Tab Tab) 0.4 mg SL PRN PRN PRN Reason: Chest Pain Stop: 01/25/21 16:44 Ondansetron HCl (Ondansetron Inj 2 Mg/Ml 2 Ml Vial) 4 mg IV Q6H PRN PRN Reason: Nausea Stop: 01/25/21 16:44 Polyethylene Glycol (Polyethylene (Miralax) 17 Gm Pack) 17 gm PO DAILY PRN PRN Reason: Constipation Stop: 01/25/21 16:44 Vitamin D (Cholecalciferol 1,000 Units 25 Mcg Tab) 5,000 units PO DAILY PAT Stop: 01/26/21 08:59 Last Admin: 12/27/20 09:03 Dose: 5,000 units Documented by: (1) Hypertension Hypertension type: unspecified Qualified Code(s): I10 - Essential (primary) hypertension
[2020-12-27] MEDS: ENOXAPARIN INJ 40 MG/0.4 ML SYR SQ SCH (20:37)
--- NOTE | 2020-12-27 22:49 | Electrocardiogram Report ---
Test Reason : Blood Pressure : / mmHG Vent. Rate : 052 BPM Atrial Rate : 052 BPM P-R Int : 174 ms QRS Dur : 126 ms QT Int : 478 ms P-R-T Axes : 034 -20 013 degrees QTc Int : 444 ms Sinus bradycardia Non-specific intra-ventricular conduction block Abnormal ECG When compared with ECG of 26-DEC-2020 10:07, No significant change was found Confirmed by Sae Fagan ([id number]) on 12/27/2020 10:49:16 PM Referred By: REFERRED SELF Confirmed By:Sae Fagan
[2020-12-28 07:31] LABS: BUN Creatinine Ratio 18.2 (10-20); Calcium 8.4 mg/dl (8.5-10.1); Creatinine Clr Calc Pharmacy 88.1 ml/min; Est GFR (African American) 103.5 ml/min; Est GFR (Non-African American) 89.3 ml/min; Potassium 3.8 mmol/L (3.5-5.1)
[2020-12-28] MEDS: lisinopril 2.5 MG TAB PO SCH (07:43)
[2020-12-28] MEDS: CHOLECALCIFEROL 1,000 UNITS 25 MCG TAB PO SCH (07:43)
[2020-12-28] MEDS: cephALEXin 500 MG CAP PO SCH ×2 (07:44→12:30)
--- NOTE | 2020-12-28 10:41 | Hospitalist Progress Note ---
Date of Service December 28, 2020 Assessment & Plan (1) Near syncope: (2) Chest pain: (3) Hypertension: This is a 70-year-old female who has significant past medical history of HTN, chronic sinus bradycardia, aortic valve sclerosis, ORION intolerant to CPAP who presents to ED secondary to dizziness, near syncope, chest pain off and on x2 days. Pt with 2 recent episodes of near syncope and previously uncontrolled HTN managed with lifestyle modifications. Pt has been recommended to start anti hypertensives by cardiology and nephrology in past, but pt resistant, now willing. She has not tolerated lisinopril in the past. Syncope work up as below_ She has unremarkable CTA of the head and CT of the head, carotid Doppler, echocardiogram and did not have any arrhythmias Echo of the heart showed: LV wall motion was normal, EF 55 to 60%, mild MR, grade 1 diastolic dysfunction and Doppler findings do not suggest pulmonary hypertension. She did not have any clot in the legs and CTA was negative for any pulmonary embolism She has been going to the bathroom and wandering around the room without any significant symptoms Uncontrolled hypertension Remains reasonably stable in medical telemetry unit No significant bradycardia and/or arrhythmias noted on monitor She has been ruled out for any ACS Appreciate cardiology input and recommendation She has been having high blood pressure for the last few years but is very resistant to take any medication After long discussion with the patient by the electron beam machine welder setter and myself she was agreeable to take lisinopril Clonidine and hydralazine have been discontinued She has been put on 2.5 mg of lisinopril daily and her blood pressure remains on the higher side at 168/78 today She was reassured about the blood pressure and which can be checked and the medications adjusted by her primary care physician as an outpatient She was strongly advised to follow heart healthy diet, low salt and reduce weight to improve her blood pressure and overall medical condition (4) Sinus bradycardia: pt with chronic sinus bradycardia per ekgs from prior ? if dizziness/near syncope now attributing to this or if soley HTN related consult cards as above No bradyarrhythmias on monitor (5) Sleep apnea: intolerant/resistant to cpap likely part of uncontrolled HTN along with morbid obesity (6) History of recent dental procedure: pt states recent dental cleaning complained of dental pain was started on oral keflex - continue until complete Doubt any significant infection/dental abscess We will continue Keflex for now (7) DVT prophylaxis: SQ Lovenox Dispo: med tele PCP: Alexandra FULL CODE Discharge home this afternoon Admission and Anticipated Discharge Date Admission Date: December 26, 2020 Subjective 12/27/2020 The patient was seen and examined in medical telemetry unit She has been complaining of ongoing dizziness and sudden increase in blood pressure with occasional jerks of the body Denies any headache, any blurred vision, any weakness in any particular side, any numbness and or tingling involving any of the extremities He has some discomfort in the right upper maxillary area 12/28/2020 The patient was seen and examined in medical telemetry unit She denies any significant complaints No headache, no chest pain and/or palpitation and her weakness is better Review of Systems Review of Systems: All systems reviewed and are unremarkable except as noted below Neurologic: + generalized weakness Physical Exam Physical Exam: Sitting on the bed without any acute distress Constitutional: well developed, well nourished and + obese; not ill appearing Eyes: PERRL, conjunctivae normal, anicteric sclerae ENMT: external ear and nose normal, oropharynx normal Neck: trachea midline, no thyromegaly Respiratory: no respiratory distress Auscultation: lungs clear to auscultation bilaterally Cardiovascular: Rate/Rhythm: regular rate and regular rhythm Heart Sounds: no murmur Extremities: + edema (Trace edema bilaterally) Gastrointestinal (Abdomen): Inspection/Auscultation: normal bowel sounds; abdomen not distended Percussion/Palpation: abdomen soft; abdomen nontender Musculoskeletal: No acute arthritis in any joint Psychiatric: A+Ox3, euthymic affect Lymphatic: no cervical or axillary lymphadenopathy Results & Data Results & Data ([facility]) Vital Signs (Past 12 Hours) Vital Signs Temp Pulse Pulse Resp BP Pulse Ox 12/28/20 07:52 36.7 C 49 L 20 168/78 H 95 12/28/20 07:30 56 L 12/28/20 03:56 36.6 C 57 L 20 158/85 H 95 12/28/20 00:00 49 L 12/27/20 22:51 36.6 C 53 L 20 145/83 H 96 Laboratory Results [facility] 12/28/20 06:33 Sodium 142 Potassium 3.8 Chloride 110 H Carbon Dioxide 27 BUN 12 Creatinine 0.65 Glucose 100 H Calcium 8.4 L Medications Administered Current Inpatient Medications Acetaminophen (Acetaminophen 325 Mg Tab) 650 mg PO Q4H PRN PRN Reason: Pain or Fever Stop: 01/25/21 16:44 Al Hydrox/Mg Hydrox/Simethicone (Aluminum/Magnesium Susp 30 Ml Udc) 15 ml PO Q4H PRN PRN Reason: Dyspepsia Stop: 01/25/21 16:44 Cephalexin HCl (Cephalexin 500 Mg Cap) 500 mg PO QID PAT Stop: 12/31/20 16:59 Last Admin: 12/28/20 07:44 Dose: 500 mg Documented by: Enoxaparin Sodium (Enoxaparin Inj 40 Mg/0.4 Ml Syr) 40 mg SQ Q24H PAT Stop: 01/25/21 21:59 Last Admin: 12/27/20 20:37 Dose: 40 mg Documented by: Lisinopril (Lisinopril 2.5 Mg Tab) 2.5 mg PO QAM [facility] Stop: 01/26/21 12:44 Last Admin: 12/28/20 07:43 Dose: 2.5 mg Documented by: Magnesium Hydroxide (Magnesium Hydroxide Susp 30 Ml Udc) 30 ml PO Q12H PRN PRN Reason: Constipation Stop: 01/25/21 16:44 Nitroglycerin (Nitroglycerin Sl 0.4 Mg/Tab Tab) 0.4 mg SL PRN PRN PRN Reason: Chest Pain Stop: 01/25/21 16:44 Ondansetron HCl (Ondansetron Inj 2 Mg/Ml 2 Ml Vial) 4 mg IV Q6H PRN PRN Reason: Nausea Stop: 01/25/21 16:44 Polyethylene Glycol (Polyethylene (Miralax) 17 Gm Pack) 17 gm PO DAILY PRN PRN Reason: Constipation Stop: 01/25/21 16:44 Vitamin D (Cholecalciferol 1,000 Units 25 Mcg Tab) 5,000 units PO DAILY [facility] Stop: 01/26/21 08:59 Last Admin: 12/28/20 07:43 Dose: 5,000 units Documented by: (1) Hypertension Hypertension type: unspecified Qualified Code(s): I10 - Essential (primary) hypertension
== END 2020-12-28 12:43 | disposition home or self-care (01) ==
LOC: ED 10:00 → 2N 10:00 → SUATTDRO 12:55 → 2N 16:51

== ENCOUNTER 2023-07-17 23:11 | Observation (INO) ==
[2023-07-18 00:20] LABS: Basophils # (auto) 0.03 K/uL (0.00-0.20); Basophils % (auto) 0.3 %; Hematocrit (blood only) 43.8 % (37.0-47.0); Hemoglobin 15.1 g/dl (12.0-16.0); Immature Granulocytes # (auto) 0.06 K/uL (0.01-0.20); Immature Granulocytes % (auto) 0.6 %; Lymphocytes # (auto) 1.43 K/uL (1.20-3.40); Lymphocytes % (auto) 13.5 %; Mean Corpuscular Hgb Conc 34.5 g/dL (32.0-36.0); Mean Corpuscular Volume 86.9 fL (80.0-100.0); Monocytes # (auto) 0.66 K/uL (0.11-0.59); Monocytes % (auto) 6.2 %; Neutrophils # (auto) 8.41 K/uL (1.40-6.50); Neutrophils % (auto) 79.4 %; Platelet Count 225 K/uL (130-400); RDW Standard Deviation 41.1 fL (36.4-46.3); Red Blood Count 5.04 M/uL (4.20-5.40); White Blood Count 10.59 K/ul (4.8-10.8)
[2023-07-18 00:36] LABS: Adenovirus PCR Not Detected (NotDetected); Bordetella parapertussis PCR Not Detected (NotDetected); Bordetella pertussis PCR Not Detected (NotDetected); Chlamydia pneumoniae PCR Not Detected (NotDetected); Coronavirus 229E PCR Not Detected (NotDetected); Coronavirus HKU1 PCR Not Detected (NotDetected); Coronavirus NL63 PCR Not Detected (NotDetected); Coronavirus OC43PCR Not Detected (NotDetected); Human Metapneumovirus PCR Not Detected (NotDetected); Influenza A PCR Not Detected (NotDetected); Influenza B PCR Not Detected (NotDetected); Mycoplasma pneumoniae PCR Not Detected (NotDetected); Parainfluenza Virus 1 PCR Not Detected (NotDetected); Parainfluenza Virus 2 PCR Not Detected (NotDetected); Parainfluenza Virus 3 PCR Not Detected (NotDetected); Parainfluenza Virus 4 PCR Not Detected (NotDetected); Respiratory Syncytial VirusPCR Not Detected (NotDetected); Rhinovirus/Enterovirus PCR Not Detected (NotDetected)
[2023-07-18] MEDS ORDERED: ACETAMINOPHEN 500 MG TAB PO STA (00:37)
[2023-07-18] MEDS ORDERED: SODIUM CHLORIDE 0.9% 1,000 ML IV ONE (00:37)
--- NOTE | 2023-07-18 00:40 | Emergency Department Note ---
Impression & Plan COVID-19, Generalized weakness, Malaise and fatigue ED Provider Note Name: LILIANA BENITEZ Age: 72 Sex: Female Arrives Via: Ambulance Informant: Patient ED Provider: Devin Knight MD Chief Complaint: Weakness Impression: As per impressions above Medical Decision Makin-year-old female with extensive past medical history arrives for evaluation of weakness fever and fatigue. Patient is so weak she cannot get out a better off the floor thus was taken to the ER by EMS. She is a bit dehydrated on exam though blood pressure and heart rate are good. She was given a liter fluid bolus and await laboratory workup. Chest x-ray shows congestive/viral findings throughout. She does have a junky cough noted. Laboratory workup is relatively benign with normal white blood cell count, no lactic acidosis and otherwise stable electrolytes. She does have positive COVID testing. O2 sats have been sitting around 90 to 92%. She was given IV Decadron given the respiratory issues and positive COVID. Patient is too weak to go home especially given she lives alone. Thus hospitalist was consulted for further management. I do not feel she has findings of PE or dissection at this time of ACS. Triage/Nursing Notes reviewed by Me Differential:Infection, dehydration, metabolic abnormality, hypo/hyperglycemia, electrolyte disturbance, anemia, hypoxia, cardiac sources, intracerebral event, toxicologic, neurologic, as well as other pathologies. Vital Signs: reviewed and remarkable for febrile mildly tacky low O2 sats Interventions: Normal saline bolus 1 L IV, Tylenol p.o., Decadron 10 mg IV Labs:ED labs Reviewed by me and remarkable for viral respiratory panel positive for COVID. Imagin view chest x-ray bilateral congestive findings versus viral pattern EKG:Per my interpretation. Indication sepsis. Normal sinus rhythm at 93 beats. QTc of 469. There is no overt ischemia nor ectopy. There is a intraventricular block/left axis deviation noted. When compared to EKG of December 27, 2020 heart rate has increased significantly. Cardiac/Tele Monitoring: Cardiac Monitoring: An Order was placed for continuous cardiac monitoring. The monitor shows a rate of 90 with a normal sinus rhythm. Consults:Dr Milla Damon Hospitalist Plan: Disposition:Hospitalization. Condition: Fair History of Present Illness: 72-year-old female arrives for evaluation of weakness. Patient notes she has been feeling tired and fatigued for the last 2 weeks. She had a cough shortness of breath and some chills the last few weeks as well. Over the last 24 hours though she is developed fevers, chills, productive cough. Associated with difficulty taking a deep breath. Denies any sore throat, headache, neck pain, abdominal pain, flank pain, urinary symptoms, leg swelling, rashes. She states she has been eating and drinking okay. Today though she has been feeling very weak and tired. She was laying in the couch and slid to the floor noticed she was so weak she could not get up. She attempted to get up for a few hours before pressing medical alert bracelet. She denies any confusion or other concerning signs or symptoms. Patient does not know of any sick contacts. While she has been sick for 2 weeks she said the real symptoms did not start till today. Denies any head injury or blood thinner use. Past Medical History:See Below Home Medications:See Below Allergies:NKDA Vitals:Blood Pressure: 156/96, Pulse 98, RR 22, T 38C, O2 92% on RA Physical Exam: GENERAL: Patient is unwell appearing and in mild distress. Dehydrated RESPIRATORY: Mild dyspnea/tachypnea with crackles throughout the left lower lung field CARDIOVASCULAR: Tachy.No murmur appreciated. GASTROINTESTINAL: Abdomen soft, non-tender, no peritonitis. BACK: No midline tenderness, no CVA tenderness EXTREMITIES: Normal motion all extremities, no cyanosis, no edema. NEUROLOGIC: Alert and oriented. No focal neurologic deficits appreciated SKIN: No rash, no jaundice, no diaphoresis. PSYCH: Appropriate GCS: 15 ED Course: Times/Reassessments: Patient is feeling much better after some IV fluids. She is quite weak with try to get her up and get to the bathroom. Devin Knight MD Past Med/Surg History Medical History Acute cholecystitis Hypertension Sinus bradycardia Sleep apnea Surgical History deliv NOS-unsp H/O cataract extraction History of ERCP History of laparoscopic cholecystectomy Family History Mother CHF (congestive heart failure) Hypertension Diabetes Social History Smoking Status: Never smoker Tobacco Type: Cigarettes Hx Alcohol Use: Yes Alcohol type: wine Hx Substance Use: No Preferred Language: [place] Communication Ability: Effective Drop Worker Required: No Beliefs That Will Affect Care: None marital status: Single Current Living Situation: Alone Current Living Situation Comment: senior apartment Feels Safe at Home: Yes Assistive Devices: Glasses Allergies Allergies Allergy/AdvReac Type Severity Reaction Status Date / Time No Known Drug Allergies Allergy Unknown . Verified 07/18/23 00:42 Home Meds Home Medications Medication Instructions Recorded Confirmed multivitamin (Multiple Vitamins 1 tab PO DAILY 07/18/23 07/18/23 tablet) Results & Data (ED) Vital Signs Vital Signs - 24 hr 07/17/23 23:23 07/17/23 23:23 07/17/23 23:23 Temperature Temperature Source Pulse Rate 96 H 95 H Pulse Rate from SpO2 Sensor 95 H Respiratory Rate 25 H Respiratory Effort / Characteristics Respiratory Depth Blood Pressure 142/87 H Blood Pressure Mean 97 Pulse Oximetry 93 Oxygen Delivery Method Oxygen Flow Rate Sepsis Recent Fever Within 48 Hours Sepsis New/Unexplained Change in Mental Status Sepsis Action Taken by Nursing 07/17/23 23:26 07/17/23 23:30 07/17/23 23:30 Temperature 38 C H Temperature Source Oral Pulse Rate 95 H 96 H Pulse Rate from SpO2 Sensor 96 H Respiratory Rate 18 29 H Respiratory Effort / Characteristics Non-Labored Respiratory Depth Normal Blood Pressure 142/87 H 142/92 H Blood Pressure Mean 105 109 Pulse Oximetry 93 92 Oxygen Delivery Method Room Air Oxygen Flow Rate Sepsis Recent Fever Within 48 Hours No Sepsis New/Unexplained Change in Mental Status No Sepsis Action Taken by Nursing No Action Required 07/17/23 23:40 07/17/23 23:50 07/18/23 00:00 Temperature Temperature Source Pulse Rate 92 H 97 H Pulse Rate from SpO2 Sensor 93 H 98 H Respiratory Rate 26 H 26 H Respiratory Effort / Characteristics Respiratory Depth Blood Pressure 156/96 H Blood Pressure Mean 111 Pulse Oximetry 93 92 Oxygen Delivery Method Oxygen Flow Rate Sepsis Recent Fever Within 48 Hours Sepsis New/Unexplained Change in Mental Status Sepsis Action Taken by Nursing 07/18/23 00:00 07/18/23 00:08 07/18/23 00:08 Temperature Temperature Source Pulse Rate 100 H Pulse Rate from SpO2 Sensor 99 H Respiratory Rate 23 Respiratory Effort / Characteristics Respiratory Depth Blood Pressure Blood Pressure Mean Pulse Oximetry 94 93 93 Oxygen Delivery Method Room Air Room Air Oxygen Flow Rate 0 Sepsis Recent Fever Within 48 Hours Sepsis New/Unexplained Change in Mental Status Sepsis Action Taken by Nursing 07/18/23 00:10 07/18/23 00:15 07/18/23 00:15 Temperature Temperature Source Pulse Rate 98 H 92 H Pulse Rate from SpO2 Sensor 99 H 92 H Respiratory Rate 22 19 Respiratory Effort / Characteristics Respiratory Depth Blood Pressure 160/98 H Blood Pressure Mean 127 Pulse Oximetry 92 94 Oxygen Delivery Method Room Air Oxygen Flow Rate Sepsis Recent Fever Within 48 Hours Sepsis New/Unexplained Change in Mental Status Sepsis Action Taken by Nursing 07/18/23 00:20 07/18/23 00:30 07/18/23 00:30 Temperature Temperature Source Pulse Rate 94 H 97 H Pulse Rate from SpO2 Sensor 93 H 97 H Respiratory Rate 21 24 Respiratory Effort / Characteristics Respiratory Depth Blood Pressure 150/100 H Blood Pressure Mean 131 Pulse Oximetry 94 95 Oxygen Delivery Method Oxygen Flow Rate Sepsis Recent Fever Within 48 Hours Sepsis New/Unexplained Change in Mental Status Sepsis Action Taken by Nursing 07/18/23 00:40 07/18/23 00:45 07/18/23 00:45 Temperature Temperature Source Pulse Rate 93 H 95 H Pulse Rate from SpO2 Sensor 94 H 95 H Respiratory Rate 23 26 H Respiratory Effort / Characteristics Respiratory Depth Blood Pressure 147/99 H Blood Pressure Mean 118 Pulse Oximetry 94 93 Oxygen Delivery Method Oxygen Flow Rate Sepsis Recent Fever Within 48 Hours Sepsis New/Unexplained Change in Mental Status Sepsis Action Taken by Nursing 07/18/23 00:50 07/18/23 01:00 07/18/23 01:00 Temperature Temperature Source Pulse Rate 93 H 87 Pulse Rate from SpO2 Sensor 94 H 86 Respiratory Rate 29 H 18 Respiratory Effort / Characteristics Respiratory Depth Blood Pressure 142/95 H Blood Pressure Mean 109 Pulse Oximetry 95 94 Oxygen Delivery Method Oxygen Flow Rate Sepsis Recent Fever Within 48 Hours Sepsis New/Unexplained Change in Mental Status Sepsis Action Taken by Nursing 07/18/23 01:10 07/18/23 01:15 07/18/23 01:15 Temperature Temperature Source Pulse Rate 83 83 Pulse Rate from SpO2 Sensor 83 81 Respiratory Rate 20 21 Respiratory Effort / Characteristics Respiratory Depth Blood Pressure 159/101 H Blood Pressure Mean 113 Pulse Oximetry 93 93 Oxygen Delivery Method Oxygen Flow Rate Sepsis Recent Fever Within 48 Hours Sepsis New/Unexplained Change in Mental Status Sepsis Action Taken by Nursing 07/18/23 01:20 07/18/23 01:41 07/18/23 01:44 Temperature 37.0 C Temperature Source Oral Pulse Rate 82 82 Pulse Rate from SpO2 Sensor 81 Respiratory Rate 22 23 Respiratory Effort / Characteristics Respiratory Depth Blood Pressure Blood Pressure Mean Pulse Oximetry 94 Oxygen Delivery Method Room Air Oxygen Flow Rate Sepsis Recent Fever Within 48 Hours Sepsis New/Unexplained Change in Mental Status Sepsis Action Taken by Nursing 07/18/23 01:50 07/18/23 01:55 07/18/23 01:55 Temperature Temperature Source Pulse Rate 80 75 Pulse Rate from SpO2 Sensor 75 Respiratory Rate 20 16 Respiratory Effort / Characteristics Respiratory Depth Blood Pressure 146/88 H Blood Pressure Mean 102 Pulse Oximetry 95 Oxygen Delivery Method Oxygen Flow Rate Sepsis Recent Fever Within 48 Hours Sepsis New/Unexplained Change in Mental Status Sepsis Action Taken by Nursing 07/18/23 02:00 07/18/23 02:00 07/18/23 02:10 Temperature Temperature Source Pulse Rate 79 78 Pulse Rate from SpO2 Sensor 79 77 Respiratory Rate 19 16 Respiratory Effort / Characteristics Respiratory Depth Blood Pressure 148/95 H Blood Pressure Mean 111 Pulse Oximetry 92 93 Oxygen Delivery Method Room Air Oxygen Flow Rate Sepsis Recent Fever Within 48 Hours Sepsis New/Unexplained Change in Mental Status Sepsis Action Taken by Nursing 07/18/23 02:20 07/18/23 02:30 Temperature Temperature Source Pulse Rate 84 81 Pulse Rate from SpO2 Sensor 84 81 Respiratory Rate 19 23 Respiratory Effort / Characteristics Respiratory Depth Blood Pressure Blood Pressure Mean Pulse Oximetry 95 93 Oxygen Delivery Method Oxygen Flow Rate Sepsis Recent Fever Within 48 Hours Sepsis New/Unexplained Change in Mental Status Sepsis Action Taken by Nursing Laboratory Data 07/18/23 03:55 07/18/23 03:55 Lab Results 07/17/23 07/17/23 07/18/23 Range/Units 23:25 23:55 01:41 WBC 10.59 (4.8-10.8) K/ul RBC 5.04 (4.20-5.40) M/uL Hgb 15.1 (12.0-16.0) g/dl Hct 43.8 (37.0-47.0) % MCV 86.9 (80.0-100.0) fL MCH 30.0 (25.0-34.0) pg MCHC 34.5 (32.0-36.0) g/dL RDW Std Deviation 41.1 (36.4-46.3) fL RDW Coeff of Lizette 13.0 (11.5-14.5) % Plt Count 225 (130-400) K/uL MPV 10.0 (9.4-12.4) fL Immature Gran % (Auto) 0.6 % Neut % (Auto) 79.4 % Lymph % (Auto) 13.5 % [place] % (Auto) 6.2 % Eos % (Auto) 0.0 % Baso % (Auto) 0.3 % Neut # (Auto) 8.41 H (1.40-6.50) K/uL Lymph # (Auto) 1.43 (1.20-3.40) K/uL [place]iken # (Auto) 0.66 H (0.11-0.59) K/uL Eos # (Auto) 0.00 (0.00-0.50) K/uL Baso # (Auto) 0.03 (0.00-0.20) K/uL Immature Gran # (Auto) 0.06 (0.01-0.20) K/uL Sodium 137 (136-145) mmol/L Potassium 3.6 (3.5-5.1) mmol/L Chloride 101 (98-107) mmol/L Carbon Dioxide 25 (21-32) mmol/L Anion Gap 11 (3-11) BUN 11 (6-23) mg/dl Creatinine 0.72 (0.6-1.2) mg/dl Est Cr Clr Drug Dosing 77.8 ml/min Est GFR ( Amer) 96.3 ml/min Est GFR (Non-Af Amer) 83.1 ml/min BUN/Creatinine Ratio 15.3 (10-20) Glucose 166 H (70-99(Fasting)) mg/dl Lactate 1.6 (0.4-2.0) mmol/L Calcium 9.1 (8.6-10.3) mg/dl Magnesium 1.7 (1.7-2.4) mg/dl Total Bilirubin 1.1 H (0.2-1.0) mg/dl Direct Bilirubin 0.1 (0-0.2) mg/dl AST 18 (13-39) U/L ALT 15 (7-52) U/L Alkaline Phosphatase 92 (34-104) U/L Total Creatine Kinase 31 (26-192) U/L Troponin I High Sens 6.6 (0-14) pg/ml B-Natriuretic Peptide 26 (0-100) pg/ml Total Protein 7.7 (6.0-8.3) gm/dl Albumin 4.1 (3.4-5.0) gm/dl Procalcitonin < 0.05 (0-0.5) ng/ml Urine Color Yellow Urine Appearance Clear (Clear) Urine pH 6.0 (4.5-7.5) Ur Specific [place] 1.008 (1.000-1.030) Urine Protein Negative (Negative) Urine Glucose (UA) Negative (Negative) Urine Ketones 1+ H (Negative) Urine Blood Negative (Negative) Urine Nitrite Negative (Negative) Urine Bilirubin Negative (Negative) Urine Urobilinogen Negative (Negative) Ur Leukocyte Esterase Negative (Negative) Adenovirus (PCR) Not Detected (NotDetected) B. pertussis DNA (PCR) Not Detected (NotDetected) B.parapertussis DNA PCR Not Detected (NotDetected) C. pneumoniae DNA (PCR) Not Detected (NotDetected) Coronavirus OC43 (PCR) Not Detected (NotDetected) Coronavirus HKU1 (PCR) Not Detected (NotDetected) Coronavirus 229E (PCR) Not Detected (NotDetected) SARS-CoV-2 (PCR) DETECTED A* (NotDetected) Coronavirus NL63 (PCR) Not Detected (NotDetected) Human Metapneumovir PCR Not Detected (NotDetected) Influenza Type A (PCR) Not Detected (NotDetected) Influenza Type B (PCR) Not Detected (NotDetected) M. pneumoniae (PCR) Not Detected (NotDetected) Parainfluenza 1 (PCR) Not Detected (NotDetected) Parainfluenza 2 (PCR) Not Detected (NotDetected) Parainfluenza 3 (PCR) Not Detected (NotDetected) Parainfluenza 4 (PCR) Not Detected (NotDetected) RSV (PCR) Not Detected (NotDetected) Entero/Rhino (PCR) Not Detected (NotDetected) Administered Medications Potassium Chloride/Sodium Chloride (Normal Saline W/20 Meq Kcl) 20 meq in 1,000 mls @ 50 mls/hr IV .Q20H ONE; Protocol Stop: 07/18/23 23:18 Last Admin: 07/18/23 04:57 Dose: 50 mls/hr Documented By: JAMES Discontinued Medications Acetaminophen (Acetaminophen 500 Mg Tab) 1,000 mg PO NOW STA Stop: 07/18/23 00:38 Last Admin: 07/18/23 00:40 Dose: 1,000 mg Documented By: KIERAN Benzonatate (Benzonatate 100 Mg Capsule) 100 mg PO NOW ONE Stop: 07/18/23 02:32 Last Admin: 07/18/23 02:50 Dose: 100 mg Documented By: JAMES Dexamethasone Sodium Phosphate (DexamethasonePf 10 Mg/Ml Vial) 10 mg IV NOW ONE Stop: 07/18/23 01:42 Last Admin: 07/18/23 01:54 Dose: 10 mg Documented By: KIERAN Sodium Chloride (Nss) 1,000 mls @ 999 mls/hr IV .Q1H1M ONE Stop: 07/18/23 01:37 Last Infusion: 07/18/23 01:44 Dose: Infused Documented By: Admin: 07/18/23 00:42 Dose: 999 mls/hr Documented By: KIERAN Magnesium Sulfate/Dextrose (Magnesium Sulfate / D5w) 1 gm in 100 mls @ 50 mls/hr IV ONE ONE Stop: 07/18/23 04:14 Last Infusion: 07/18/23 04:52 Dose: Infused Documented By: Admin: 07/18/23 02:52 Dose: 50 mls/hr Documented By: JAMES Doxycycline Hyclate 100 mg/ (Dextrose) 100 mls @ 50 mls/hr IV NOW ONE Stop: 07/18/23 04:59 Last Infusion: 07/18/23 04:52 Dose: Infused Documented By: Admin: 07/18/23 02:52 Dose: 50 mls/hr Documented By: JAMES Discharge Plan Visit Data Chief Complaint: Weakness Stated Complaint: WEAKNESS, SHORTNESS OF BREATH ED Provider: Devin Knight Discharge Problem: COVID-19, Generalized weakness, Malaise and fatigue Discharge Instructions Interventions: ED Discharge Assessment Last Done: 07/18/23 03:23
[2023-07-18 00:53] LABS: Albumin Level 4.1 gm/dl (3.4-5.0); Bilirubin Direct 0.1 mg/dl (0-0.2); Bilirubin,Total 1.1 mg/dl (0.2-1.0); Calcium 9.1 mg/dl (8.6-10.3); Magnesium 1.7 mg/dl (1.7-2.4); Potassium 3.6 mmol/L (3.5-5.1)
[2023-07-18 00:58] LABS: Troponin I High Sensitivity 6.6 pg/ml (0-14)
[2023-07-18 00:59] LABS: BUN Creatinine Ratio 15.3 (10-20); Creatinine Clr Calc Pharmacy 77.8 ml/min; Est GFR (African American) 96.3 ml/min; Est GFR (Non-African American) 83.1 ml/min; Total Protein 7.7 gm/dl (6.0-8.3)
[2023-07-18] MEDS ORDERED: dexAMETHasone**PF** 10 MG/ML VIAL IV ONE (01:41)
[2023-07-18 01:54] LABS: Appearance Urine Clear (Clear); Bilirubin Urine Negative (Negative); Blood Urine Negative (Negative); Color Urine Yellow; Glucose Urine UA Negative (Negative); Ketones Urine 1+ (Negative); Leukocyte Esterase Urine Negative (Negative); Nitrite Urine Negative (Negative); Protein Urine Negative (Negative); Specific Gravity Urine 1.008 (1.000-1.030); Urobilinogen Urine Negative (Negative)
[2023-07-18 02:05] LABS: Coronavirus CoV-2 (COVID19)PCR DETECTED (NotDetected)
[2023-07-18] MEDS ORDERED: MAGNESIUM SULFATE / D5W 1 GM/100 ML BAG IV ONE (02:15)
[2023-07-18] MEDS ORDERED: BENZONATATE 100 MG CAPSULE PO ONE (02:31)
--- NOTE | 2023-07-18 02:32 | History & Physical Report ---
Date of Service July 18, 2023 Assessment & Plan (1) Sepsis: Plan: Secondary to COVID-19 pneumonia with superimposed bacterial infection Lowest O2 sats of 92 on room air documented at patient's home and at the ER. Hypertension, elevated secondary to illness History medical noncompliance chronic bradycardia as per records hx ORION/CPAP intolerance Hyperglycemia rule out DM past tobacco abuse Medical telemetry CS, Doxycycline Decadron for severe COVID-19 pneumonia Initiate amlodipine if with persistent BP elevation Check hemoglobin A1c PT OT eval DVT prophylaxis. Lovenox subcu Full code Text document was generated using [employer] voice recognition software. It may contain grammatical or spelling errors. Kindly contact undersigned for clarification of any documentation item in question. History of Present Illness Chief Complaint: Weakness, cough, shortness of breath Primary Care Provider: Dr. Lilibeth Jaquez History obtained from patient and records. Medical history significant for hypertension, chronic bradycardia, ORION/CPAP intolerance, past tobacco abuse, medical noncompliance. Last confinement December 2020 for near syncope and uncontrolled hypertension. Patient discharged on lisinopril but eventually stopped medication after a year because she admits to not like taking pills. 2 weeks history of dry cough symptoms which later became junky productive of yellow-green sputum. Chest pain and headache from coughing and worsening shortness of breath. Denies aspiration. Not sure about sick contacts as she lives in a building apartment. Patient has not received COVID-19 vaccination. Poor appetite and increasing weakness. Patient slid off the couch at home and could not get up. No head trauma, LOC, syncope. Patient activated her medical alert device. Lowest O2 sats of 92 on room air noted at home. Patient brought to the ER for evaluation. Decadron administered at the ER. Medical History as above Surgical History : Cholecystectomy Family History : DM, heart disease Personal/Social history : Past tobacco abuse, occasional EtOH intake, retired [employer] Allergies Allergy/AdvReac Type Severity Reaction Status Date / Time No Known Drug Allergies Allergy Unknown . Verified 07/18/23 00:42 Home Medications Medication Instructions Recorded Confirmed Type multivitamin (Multiple Vitamins 1 tab PO DAILY 07/18/23 07/18/23 History tablet) Past Med/Surg History Medical History Acute cholecystitis Hypertension Sinus bradycardia Sleep apnea Surgical History deliv NOS-unsp H/O cataract extraction History of ERCP History of laparoscopic cholecystectomy Family History Mother CHF (congestive heart failure) Hypertension Diabetes Social History Smoking Status: Never smoker Tobacco Type: Cigarettes Hx Alcohol Use: Yes Alcohol type: wine Hx Substance Use: No Preferred Language: Pashto Communication Ability: Effective Elevator Pilot Required: No Beliefs That Will Affect Care: None marital status: Single Current Living Situation: Alone Current Living Situation Comment: senior apartment Feels Safe at Home: Yes Assistive Devices: Glasses Review of Systems Review of Systems: As per HPI, all other systems reviewed and negative Physical Exam Physical Exam: GENERAL: Comfortable, morbidly obese, no respiratory distress SKIN: Normal color, warm HEENT: [place] palpebral conjunctivae, no ptosis, dry buccal mucosa NECK : Supple, short neck, no tenderness CHEST : Decreased breath sounds, occasional expiratory wheezes, no tenderness HEART : RRR, no obvious murmurs ABDOMEN: Some distention, nontender EXTREMITIES : No LE swelling/tenderness, no other conspicuous deformities noted NEUROLOGIC : Coherent, no facial asymmetry, gait and stance not assessed Results & Data Results & Data Vital Signs (Past 12 Hours) Vital Signs Temp Pulse Resp BP Pulse Ox O2 Del Method O2 Flow Rate 07/18/23 02:10 78 16 93 Room Air 07/18/23 02:00 148/95 H 07/18/23 02:00 79 19 92 07/18/23 01:55 75 16 95 07/18/23 01:55 146/88 H 07/18/23 01:50 80 20 07/18/23 01:44 37.0 C 07/18/23 01:41 82 23 07/18/23 01:20 82 22 94 Room Air 07/18/23 01:15 83 21 93 07/18/23 01:15 159/101 H 07/18/23 01:10 83 20 93 07/18/23 01:00 87 18 94 07/18/23 01:00 142/95 H 07/18/23 00:50 93 H 29 H 95 07/18/23 00:45 95 H 26 H 93 07/18/23 00:45 147/99 H 07/18/23 00:40 93 H 23 94 07/18/23 00:30 97 H 24 95 07/18/23 00:30 150/100 H 07/18/23 00:20 94 H 21 94 07/18/23 00:15 92 H 19 94 07/18/23 00:15 160/98 H 07/18/23 00:10 98 H 22 92 Room Air 07/18/23 00:08 93 Room Air 07/18/23 00:08 93 Room Air 0 07/18/23 00:00 100 H 23 94 07/18/23 00:00 156/96 H 07/17/23 23:50 97 H 26 H 92 07/17/23 23:40 92 H 26 H 93 07/17/23 23:30 96 H 29 H 92 07/17/23 23:30 142/92 H 07/17/23 23:26 38 C H 95 H 18 142/87 H 93 Room Air 07/17/23 23:23 142/87 H 07/17/23 23:23 95 H 25 H 93 07/17/23 23:23 96 H Laboratory Results Laboratory Results WBC 10.59 K/ul (4.8-10.8) 07/17/23 23:55 RBC 5.04 M/uL (4.20-5.40) 07/17/23 23:55 Hgb 15.1 g/dl (12.0-16.0) 07/17/23 23:55 Hct 43.8 % (37.0-47.0) 07/17/23 23:55 MCV 86.9 fL (80.0-100.0) 07/17/23 23:55 MCH 30.0 pg (25.0-34.0) 07/17/23 23:55 MCHC 34.5 g/dL (32.0-36.0) 07/17/23 23:55 RDW Std Deviation 41.1 fL (36.4-46.3) 07/17/23 23:55 RDW Coeff of Lizette 13.0 % (11.5-14.5) 07/17/23 23:55 Plt Count 225 K/uL (130-400) 07/17/23 23:55 MPV 10.0 fL (9.4-12.4) 07/17/23 23:55 Immature Gran % (Auto) 0.6 % 07/17/23 23:55 Neut % (Auto) 79.4 % 07/17/23 23:55 Lymph % (Auto) 13.5 % 07/17/23 23:55 [place] % (Auto) 6.2 % 07/17/23 23:55 Eos % (Auto) 0.0 % 07/17/23 23:55 Baso % (Auto) 0.3 % 07/17/23 23:55 Neut # (Auto) 8.41 K/uL (1.40-6.50) H 07/17/23 23:55 Lymph # (Auto) 1.43 K/uL (1.20-3.40) 07/17/23 23:55 [place] # (Auto) 0.66 K/uL (0.11-0.59) H 07/17/23 23:55 Eos # (Auto) 0.00 K/uL (0.00-0.50) 07/17/23 23:55 Baso # (Auto) 0.03 K/uL (0.00-0.20) 07/17/23 23:55 Immature Gran # (Auto) 0.06 K/uL (0.01-0.20) 07/17/23 23:55 Sodium 137 mmol/L (136-145) 07/17/23 23:55 Potassium 3.6 mmol/L (3.5-5.1) 07/17/23 23:55 Chloride 101 mmol/L (98-107) 07/17/23 23:55 Carbon Dioxide 25 mmol/L (21-32) 07/17/23 23:55 Anion Gap 11 (3-11) 07/17/23 23:55 BUN 11 mg/dl (6-23) 07/17/23 23:55 Creatinine 0.72 mg/dl (0.6-1.2) 07/17/23 23:55 Est Cr Clr Drug Dosing 77.8 ml/min 07/17/23 23:55 Est GFR ( Amer) 96.3 ml/min 07/17/23 23:55 Est GFR (Non-Af Amer) 83.1 ml/min 07/17/23 23:55 BUN/Creatinine Ratio 15.3 (10-20) 07/17/23 23:55 Glucose 166 mg/dl (70-99(Fasting)) H 07/17/23 23:55 Lactate 1.6 mmol/L (0.4-2.0) 07/17/23 23:55 Calcium 9.1 mg/dl (8.6-10.3) 07/17/23 23:55 Magnesium 1.7 mg/dl (1.7-2.4) 07/17/23 23:55 Total Bilirubin 1.1 mg/dl (0.2-1.0) H 07/17/23 23:55 Direct Bilirubin 0.1 mg/dl (0-0.2) 07/17/23 23:55 AST 18 U/L (13-39) 07/17/23 23:55 ALT 15 U/L (7-52) 07/17/23 23:55 Alkaline Phosphatase 92 U/L (34-104) 07/17/23 23:55 Total Creatine Kinase 31 U/L (26-192) 07/17/23 23:55 Troponin I High Sens 6.6 pg/ml (0-14) 07/17/23 23:55 Total Protein 7.7 gm/dl (6.0-8.3) 07/17/23 23:55 Albumin 4.1 gm/dl (3.4-5.0) 07/17/23 23:55 Procalcitonin < 0.05 ng/ml (0-0.5) 07/17/23 23:55 Urine Color Yellow 07/18/23 01:41 Urine Appearance Clear (Clear) 07/18/23 01:41 Urine pH 6.0 (4.5-7.5) 07/18/23 01:41 Ur Specific [place] 1.008 (1.000-1.030) 07/18/23 01:41 Urine Protein Negative (Negative) 07/18/23 01:41 Urine Glucose (UA) Negative (Negative) 07/18/23 01:41 Urine Ketones 1+ (Negative) H 07/18/23 01:41 Urine Blood Negative (Negative) 07/18/23 01:41 Urine Nitrite Negative (Negative) 07/18/23 01:41 Urine Bilirubin Negative (Negative) 07/18/23 01:41 Urine Urobilinogen Negative (Negative) 07/18/23 01:41 Ur Leukocyte Esterase Negative (Negative) 07/18/23 01:41 Adenovirus (PCR) Not Detected (NotDetected) 07/17/23 23:25 B. pertussis DNA (PCR) Not Detected (NotDetected) 07/17/23 23:25 B.parapertussis DNA PCR Not Detected (NotDetected) 07/17/23 23:25 C. pneumoniae DNA (PCR) Not Detected (NotDetected) 07/17/23 23:25 Coronavirus OC43 (PCR) Not Detected (NotDetected) 07/17/23 23:25 Coronavirus HKU1 (PCR) Not Detected (NotDetected) 07/17/23 23:25 Coronavirus 229E (PCR) Not Detected (NotDetected) 07/17/23 23:25 SARS-CoV-2 (PCR) DETECTED (NotDetected) A* 07/17/23 23:25 Coronavirus NL63 (PCR) Not Detected (NotDetected) 07/17/23 23:25 Human Metapneumovir PCR Not Detected (NotDetected) 07/17/23 23:25 Influenza Type A (PCR) Not Detected (NotDetected) 07/17/23 23:25 Influenza Type B (PCR) Not Detected (NotDetected) 07/17/23 23:25 M. pneumoniae (PCR) Not Detected (NotDetected) 07/17/23 23:25 Parainfluenza 1 (PCR) Not Detected (NotDetected) 07/17/23 23:25 Parainfluenza 2 (PCR) Not Detected (NotDetected) 07/17/23 23:25 Parainfluenza 3 (PCR) Not Detected (NotDetected) 07/17/23 23:25 Parainfluenza 4 (PCR) Not Detected (NotDetected) 07/17/23 23:25 RSV (PCR) Not Detected (NotDetected) 07/17/23 23:25 Entero/Rhino (PCR) Not Detected (NotDetected) 07/17/23 23:25 Diagnostic Findings Chest x-ray as per my interpretation atelectasis, elevated right hemidiaphragm, bilateral infiltrates EKG as per my interpretation: Rate 90, NSR, LAD, LAFB, LVH no ischemia
[2023-07-18] MEDS ORDERED: PROMETHAZINE HCL 6.25 MG in SODIUM CHLORIDE 0.9% 50 ML IV PRN (02:36)
[2023-07-18] MEDS ORDERED: ALBUT/IPRATROP 3MG/0.5MG NEB 3 ML VIAL NEB PRN (02:36)
[2023-07-18] MEDS ORDERED: DOXYCYCLINE HYCLATE 100 MG in DEXTROSE 5% MINI-B 100 ML IV ONE (03:00)
[2023-07-18] MEDS ORDERED: NSS + 20MEQ KCL 20 MEQ/1,000 ML BAG IV ONE (03:19)
[2023-07-18 04:49] LABS: Basophils # (auto) 0.02 K/uL (0.00-0.20); Basophils % (auto) 0.2 %; Hematocrit (blood only) 41.8 % (37.0-47.0); Hemoglobin 14.4 g/dl (12.0-16.0); Immature Granulocytes # (auto) 0.04 K/uL (0.01-0.20); Immature Granulocytes % (auto) 0.4 %; Lymphocytes # (auto) 1.09 K/uL (1.20-3.40); Lymphocytes % (auto) 11.9 %; Mean Corpuscular Hemoglobin 29.9 pg (25.0-34.0); Mean Corpuscular Hgb Conc 34.4 g/dL (32.0-36.0); Mean Corpuscular Volume 86.7 fL (80.0-100.0); Mean Platelet Volume 10.2 fL (9.4-12.4); Monocytes # (auto) 0.37 K/uL (0.11-0.59); Neutrophils # (auto) 7.67 K/uL (1.40-6.50); Neutrophils % (auto) 83.5 %; Platelet Count 218 K/uL (130-400); RDW Coefficient of Variation 13.1 % (11.5-14.5); RDW Standard Deviation 41.2 fL (36.4-46.3); Red Blood Count 4.82 M/uL (4.20-5.40); White Blood Count 9.19 K/ul (4.8-10.8)
[2023-07-18 05:01] LABS: Calcium 8.8 mg/dl (8.6-10.3); Creatinine Clr Calc Pharmacy 93.4 ml/min; Est GFR (African American) 104.8 ml/min; Est GFR (Non-African American) 90.4 ml/min; Potassium 3.7 mmol/L (3.5-5.1)
[2023-07-18 07:16] LABS: Thyroid Stimulating Hormone 0.962 uIu/ml (0.300-4.500)
[2023-07-18 07:25] LABS: Estimated Average Glucose 120 mg/dl; Hemoglobin A1C 5.8 % (4.5-5.6)
--- NOTE | 2023-07-18 08:25 | XRay Report ---
XR chest 1V portable CLINICAL HISTORY: Sepsis. COMPARISON STUDY: Chest radiograph December 26, 2020. Chest CT December 27, 2020. FINDINGS: No pneumothorax or pleural effusion is noted. Elevation of the left hemidiaphragm is unchan ged. Cardiomegaly is unchanged. There is no evidence for pulmonary edema. There is no consolidation t o suggest pneumonia. There has been no significant change in appearance of the chest. IMPRESSION: No acute cardiopulmonary findings. No change in appearance of the chest. ACT 112: Negative or not required by law. Electronically signed by: El Quevedo M.D. 07/18/2023 8:24 AM
[2023-07-18] MEDS ORDERED: OPTIRAY 320 125ml IV ONE (09:24)
[2023-07-18] MEDS: guaiFENesin 600 MG TABCR PO SCH ×2 (09:25→20:11)
[2023-07-18] MEDS: ENOXAPARIN INJ 40 MG/0.4 ML SYR SQ SCH (09:25)
[2023-07-18] MEDS: MULTIVITAMIN TAB PO SCH (09:25)
--- NOTE | 2023-07-18 09:49 | CT Scan Report ---
CT ANGIOGRAPHY OF THE CHEST, PULMONARY EMBOLUS PROTOCOL CLINICAL HISTORY: Covid. Shortness of breath. Cough. Evaluate for pulmonary embolus. COMPARISON STUDY: Chest radiograph performed earlier today. Chest CT December 27, 2020. TECHNIQUE: Following IV administration of 74 mL of Optiray, helical axial images of the chest were ob tained utilizing the pulmonary embolus protocol. Maximal intensity projections and sagittal and antonio nal reformats were viewed on an independent 3D workstation. IV contrast was administered without com plication. Automated exposure control was utilized for the study. A dose lowering technique was uti lized adhering to the principles of ALARA. CT DOSE: 888.19 mGy.cm FINDINGS: No pulmonary emboli are identified. There is mild cardiomegaly. There is also mild dilatat ion of the central pulmonary arteries. No thoracic aortic dissection is present. There is no pericard ial effusion. Elevation of left hemidiaphragm is unchanged. There is no pneumothorax or pleural effus ion. No consolidation is identified. Linear subpleural densities favor scarring or atelectasis. No ac judah fractures within the bony thorax are noted. The gallbladder is surgically absent. Visualized port ions of the upper abdomen are unremarkable. IMPRESSION: 1. No pulmonary emboli identified. 2. No consolidation to suggest pneumonia. 3. Cardiomegaly. ACT 112: Negative or not required by law. Electronically signed by: El Quevedo M.D. 07/18/2023 9:47 AM
--- NOTE | 2023-07-18 11:58 | Electrocardiogram Report ---
Test Reason : Blood Pressure : / mmHG Vent. Rate : 093 BPM Atrial Rate : 093 BPM P-R Int : 172 ms QRS Dur : 114 ms QT Int : 378 ms P-R-T Axes : 023 -39 040 degrees QTc Int : 469 ms Normal sinus rhythm Left axis deviation Moderate voltage criteria for LVH, may be normal variant ( R in aVL ) Poor R wave progression, consider anterior AR vs. lead placement vs. LVH Abnormal ECG When compared with ECG of 27-DEC-2020 05:55, Vent. rate has increased BY 41 BPM Questionable change in QRS duration Confirmed by Ankit Cameron ([id number]) on 07/18/2023 11:57:43 AM Referred By: REFERRED SELF Confirmed By:Ankit Cameron
[2023-07-18] MEDS: ACETAMINOPHEN 325 MG TAB PO PRN (15:35)
[2023-07-18] MEDS ORDERED: hydrALAZINE HCL 20 MG/ML VIAL IV PRN (16:31)
[2023-07-18] MEDS: LEVALBUTEROL 1.25MG/0.5ML NEB NEB SCH ×2 (17:44→20:07)
--- NOTE | 2023-07-18 18:19 | Hospitalist Progress Note ---
Date of Service July 18, 2023 Assessment & Plan (1) Sepsis: Plan: Secondary to COVID-19 pneumonia with superimposed bacterial infection Lowest O2 sats of 92 on room air documented at patient's home and at the ER. Hypertension, elevated secondary to illness History medical noncompliance chronic bradycardia as per records hx ORION/CPAP intolerance Hyperglycemia rule out DM past tobacco abuse Medical telemetry CS, Doxycycline Decadron for severe COVID-19 pneumonia Initiate amlodipine if with persistent BP elevation Check hemoglobin A1c PT OT eval DVT prophylaxis. Lovenox subcu Full code Text document was generated using [employer] voice recognition software. It may contain grammatical or spelling errors. Kindly contact undersigned for clarification of any documentation item in question. (2) COVID-19: Plan: Lowest O2 sats of 92 on room air documented at patient's home and at the ER. Currently patient is doing well on room air, oxygen saturation more than 90% Clinically feeling better CT chest angio: No pneumonia, no pulmonary embolism She declines to receive IV remdesivir after discussion regarding benefits including evidence-based data showing benefits for COVID-19 patients, possible adverse effects including kidney injury and liver injury She is aware of possible progression to pneumonia, hypoxic respiratory failure if not administered Patient is agreeable to proceed with nebulizer treatments, Mucinex, and other supportive care measures Continue to monitor closely Hypertension, elevated secondary to illness, Decadron Discontinue Decadron, patient is not exhibiting hypoxia As needed hydralazine If persistent, patient will need oral antihypertensive medication chronic bradycardia as per records hx ORION/CPAP intolerance Hyperglycemia A1c 5.8 past tobacco abuse PT OT eval DVT prophylaxis. Lovenox subcu Full code Disposition Anticipate discharge home medically plan of care discussed with patient in detail and at length all questions answered she is understanding, agreeable, comfortable with the plan of care Admission and Anticipated Discharge Date Admission Date: July 18, 2023 Subjective Follow-up for COVID-19 infection, etc. Seen resting in bed, comfortable, not in distress On room air States she feels improved compared to admission Denies active shortness of breath, still has slightly productive cough, no hemoptysis Denies chest pain, palpitations, dizziness, abdominal pain, diarrhea No other new symptoms Review of Systems Review of Systems: all noted and negative except for above Physical Exam Physical Exam: General- oriented x 3, not in distress, speaks in sentences with no effort or accessory muscle use Eyes- anicteric Neck- no JVD Lungs- clear breath sounds bilaterally, no rales/wheezes Heart- normal rate, regular rhythm; no murmurs Abdomen- normal bowel sounds, nondistended, soft, nontender Extremities- no pretibial edema, no calf tenderness Neuro- alert, oriented x 3; no gross focal neurologic deficits Skin- warm & dry Results & Data Results & Data Vital Signs (Past 12 Hours) Vital Signs Temp Pulse Pulse Resp BP BP Pulse Ox 07/18/23 17:46 77 18 94 07/18/23 16:09 58 L 07/18/23 16:06 07/18/23 15:44 36.8 C 58 L 18 174/92 H 96 07/18/23 14:50 53 L 15 95 07/18/23 14:50 163/100 H 07/18/23 14:40 53 L 14 94 07/18/23 14:30 57 L 15 93 07/18/23 14:20 52 L 15 94 07/18/23 14:10 78 13 94 07/18/23 14:00 52 L 14 94 07/18/23 13:50 51 L 16 92 07/18/23 13:40 52 L 12 95 07/18/23 13:30 49 L 14 96 07/18/23 13:20 48 L 18 92 07/18/23 13:10 52 L 13 95 07/18/23 13:00 47 L 16 98 07/18/23 12:50 65 18 95 07/18/23 12:40 65 19 97 07/18/23 12:30 72 23 95 07/18/23 12:20 52 L 16 97 07/18/23 12:00 63 19 96 07/18/23 11:50 72 21 94 07/18/23 11:40 71 22 96 07/18/23 11:30 66 21 93 07/18/23 11:20 58 L 20 95 07/18/23 11:10 58 L 16 94 07/18/23 11:00 59 L 17 95 07/18/23 10:37 61 18 165/101 H 96 07/18/23 06:30 58 L 16 94 07/18/23 06:20 61 15 92 O2 Del Method 07/18/23 17:46 Room Air 07/18/23 16:09 07/18/23 16:06 Room Air 07/18/23 15:44 Room Air 07/18/23 14:50 07/18/23 14:50 07/18/23 14:40 07/18/23 14:30 07/18/23 14:20 07/18/23 14:10 07/18/23 14:00 07/18/23 13:50 07/18/23 13:40 07/18/23 13:30 07/18/23 13:20 07/18/23 13:10 07/18/23 13:00 07/18/23 12:50 07/18/23 12:40 07/18/23 12:30 07/18/23 12:20 07/18/23 12:00 07/18/23 11:50 07/18/23 11:40 07/18/23 11:30 07/18/23 11:20 07/18/23 11:10 07/18/23 11:00 07/18/23 10:37 Room Air 07/18/23 06:30 07/18/23 06:20 all noted and reviewed including below
[2023-07-18] MEDS ORDERED: LEVALBUTEROL 1.25 MG/3 ML NEB ONE (19:23)
[2023-07-18] MEDS: DOXYCYCLINE HYCLATE 100 MG CAP PO SCH (20:11)
[2023-07-19] MEDS ORDERED: LEVALBUTEROL 1.25 MG/3 ML NEB ONE ×3 (01:49→18:43)
[2023-07-19] MEDS: BENZONATATE 100 MG CAPSULE PO PRN ×2 (04:56→15:46)
[2023-07-19 07:00] LABS: Basophils # (auto) 0.02 K/uL (0.00-0.20); Basophils % (auto) 0.2 %; Hematocrit (blood only) 39.6 % (37.0-47.0); Hemoglobin 13.3 g/dl (12.0-16.0); Immature Granulocytes # (auto) 0.04 K/uL (0.01-0.20); Immature Granulocytes % (auto) 0.4 %; Lymphocytes # (auto) 2.24 K/uL (1.20-3.40); Lymphocytes % (auto) 22.3 %; Mean Corpuscular Hemoglobin 29.7 pg (25.0-34.0); Mean Corpuscular Hgb Conc 33.6 g/dL (32.0-36.0); Mean Corpuscular Volume 88.4 fL (80.0-100.0); Monocytes # (auto) 1.05 K/uL (0.11-0.59); Monocytes % (auto) 10.5 %; Neutrophils # (auto) 6.68 K/uL (1.40-6.50); Neutrophils % (auto) 66.6 %; Platelet Count 223 K/uL (130-400); RDW Coefficient of Variation 13.1 % (11.5-14.5); RDW Standard Deviation 42.9 fL (36.4-46.3); Red Blood Count 4.48 M/uL (4.20-5.40); White Blood Count 10.03 K/ul (4.8-10.8)
[2023-07-19 07:14] LABS: Albumin Globulin Ratio 1.3 (0.9-2); Albumin Level 3.5 gm/dl (3.4-5.0); BUN Creatinine Ratio 17.5 (10-20); Bilirubin,Total 0.4 mg/dl (0.2-1.0); Calcium 8.5 mg/dl (8.6-10.3); Creatinine Clr Calc Pharmacy 90.4 ml/min; Est GFR (African American) 103.1 ml/min; Globulin 2.8 gm/dl (2.5-4.0); Potassium 3.2 mmol/L (3.5-5.1); Total Protein 6.3 gm/dl (6.0-8.3)
[2023-07-19] MEDS ORDERED: POTASSIUM CHLORIDE CRTAB 20 MEQ TABCR PO STA ×2 (08:14→20:25)
[2023-07-19] MEDS ORDERED: dexAMETHasone 6 MG in SYRINGE 0 ML IV SCH (09:00)
[2023-07-19] MEDS: guaiFENesin 600 MG TABCR PO SCH ×2 (09:50→20:07)
[2023-07-19] MEDS: MULTIVITAMIN TAB PO SCH (09:51)
[2023-07-19] MEDS: DOXYCYCLINE HYCLATE 100 MG CAP PO SCH ×2 (09:52→20:07)
[2023-07-19] MEDS: amLODIPine BESYLATE 5 MG TAB PO SCH ×2 (09:54→12:33)
[2023-07-19] MEDS: ENOXAPARIN INJ 40 MG/0.4 ML SYR SQ SCH (09:54)
[2023-07-19] MEDS: LEVALBUTEROL 1.25MG/0.5ML NEB NEB SCH ×2 (10:53→12:51)
[2023-07-19] MEDS: FLUTICASONE PROPIONATE NA SPR 16 GM BTL SCH ×2 (12:31→20:07)
--- NOTE | 2023-07-19 13:48 | Hospitalist Progress Note ---
Date of Service July 19, 2023 Assessment & Plan (1) Sepsis: (2) COVID-19: Plan: COVID 19 Bronchitis Lowest O2 sats of 92 on room air documented at patient's home and at the ER. Currently patient is doing well on room air, oxygen saturation more than 90% Clinically feeling better CT chest angio: No pneumonia, no pulmonary embolism She declines to receive IV Remdesivir after discussion regarding benefits including evidence-based data showing benefits for COVID-19 patients, possible adverse effects including kidney injury and liver injury She is aware of possible progression to pneumonia, hypoxic respiratory failure if not administered Patient is agreeable to proceed with nebulizer treatments, Mucinex, and other supportive care measures Continue to monitor closely 07/19 remains stable, on room air (+) nasal congestion: add Flonase continue Doxycycline, Mucinex continue Nebs, Flutter Valve, IS on Lovenox SC for DVT prophylaxis Hypertension discussed with patient she is agreeable with starting Amlodipine 5mg daily check echo chronic bradycardia as per records hx ORION/CPAP intolerance Hyperglycemia A1c 5.8 past tobacco abuse PT OT eval DVT prophylaxis. Lovenox subcu Full code Disposition Anticipate discharge home when medically stable plan of care discussed with patient and her daughter Janny over the phone in detail and at length all questions answered they are understanding, agreeable, comfortable with the plan of care Admission and Anticipated Discharge Date Admission Date: July 18, 2023 Subjective ff up for COVID 19 infection, etc seen resting in chair, not in distress states she has nasal congestion, some drainage today still has some cough, able to expectorate more phlegm- yellow no chest pain, dyspnea, palpitations, dizziness no fever/chills no headache, neuro symptoms no other symptoms Review of Systems Review of Systems: all noted and negative except for above Physical Exam Physical Exam: General- oriented x 3, not in distress, speaks in sentences with no effort or accessory muscle use Eyes- anicteric Neck- no JVD Lungs- clear breath sounds bilaterally, no crackles/wheezing Heart- normal rate, regular rhythm; no murmurs Abdomen- normal bowel sounds, nondistended, soft, nontender Extremities- no pretibial edema, no calf tenderness Neuro- alert, oriented x 3; no gross focal neurologic deficits Skin- warm & dry Results & Data Results & Data Vital Signs (Past 12 Hours) Vital Signs Temp Pulse Pulse Pulse Resp BP Pulse Ox 07/19/23 12:52 64 16 96 07/19/23 11:23 36.8 C 55 L 16 179/92 H 96 07/19/23 07:55 52 L 07/19/23 07:55 07/19/23 07:49 62 18 98 07/19/23 07:48 36.4 C L 55 L 18 180/72 H 97 07/19/23 03:43 36.6 C 64 18 140/68 97 07/19/23 01:53 60 18 98 O2 Del Method 07/19/23 12:52 Room Air 07/19/23 11:23 Room Air 07/19/23 07:55 07/19/23 07:55 Room Air 07/19/23 07:49 Room Air 07/19/23 07:48 Room Air 07/19/23 03:43 Room Air 07/19/23 01:53 Room Air all noted and reviewed including below
[2023-07-19] MEDS ORDERED: hydroCHLOROthiazide 25 MG TAB PO STA (17:14)
[2023-07-19] MEDS ORDERED: amLODIPine BESYLATE 5 MG TAB PO ONE (17:14)
[2023-07-19] MEDS: ACETAMINOPHEN 325 MG TAB PO PRN (20:22)
[2023-07-19] MEDS ORDERED: MAGNESIUM SULFATE / D5W 1 GM/100 ML BAG IV ONE (20:25)
[2023-07-19] MEDS ORDERED: SODIUM CHLOR 0.45% + 20MEQ KCL 20 MEQ/1,000 ML BAG IV ONE (20:45)
[2023-07-20 07:46] LABS: Basophils # (auto) 0.04 K/uL (0.00-0.20); Basophils % (auto) 0.4 %; Eosinophils # (auto) 0.03 K/uL (0.00-0.50); Eosinophils % (auto) 0.3 %; Hematocrit (blood only) 39.6 % (37.0-47.0); Hemoglobin 13.9 g/dl (12.0-16.0); Immature Granulocytes # (auto) 0.02 K/uL (0.01-0.20); Immature Granulocytes % (auto) 0.2 %; Lymphocytes # (auto) 2.57 K/uL (1.20-3.40); Lymphocytes % (auto) 28.2 %; Mean Corpuscular Hemoglobin 30.2 pg (25.0-34.0); Mean Corpuscular Hgb Conc 35.1 g/dL (32.0-36.0); Mean Corpuscular Volume 85.9 fL (80.0-100.0); Mean Platelet Volume 10.1 fL (9.4-12.4); Monocytes # (auto) 0.91 K/uL (0.11-0.59); Neutrophils # (auto) 5.55 K/uL (1.40-6.50); Neutrophils % (auto) 60.9 %; Platelet Count 227 K/uL (130-400); RDW Coefficient of Variation 13.5 % (11.5-14.5); Red Blood Count 4.61 M/uL (4.20-5.40); White Blood Count 9.12 K/ul (4.8-10.8)
[2023-07-20 08:01] LABS: Albumin Globulin Ratio 1.2 (0.9-2); Albumin Level 3.6 gm/dl (3.4-5.0); BUN Creatinine Ratio 15.7 (10-20); Bilirubin,Total 0.8 mg/dl (0.2-1.0); Calcium 8.7 mg/dl (8.6-10.3); Creatinine Clr Calc Pharmacy 80.7 ml/min; Est GFR (African American) 99.6 ml/min; Total Protein 6.6 gm/dl (6.0-8.3)
[2023-07-20] MEDS ORDERED: amLODIPine BESYLATE 5 MG TAB PO SCH ×2 (09:00)
[2023-07-20] MEDS: DOXYCYCLINE HYCLATE 100 MG CAP PO SCH (09:40)
[2023-07-20] MEDS: ENOXAPARIN INJ 40 MG/0.4 ML SYR SQ SCH (09:40)
[2023-07-20] MEDS: MULTIVITAMIN TAB PO SCH (09:40)
[2023-07-20] MEDS: FLUTICASONE PROPIONATE NA SPR 16 GM BTL SCH (09:41)
[2023-07-20] MEDS ORDERED: ADVANCED PROBIOTIC 1250 MG CAPSULE PO SCH (10:15)
[2023-07-20] MEDS: LEVALBUTEROL 1.25MG/0.5ML NEB NEB SCH (10:35)
--- NOTE | 2023-07-20 11:41 | Hospitalist Progress Note ---
Date of Service July 20, 2023 Assessment & Plan (1) Sepsis: (2) COVID-19: Plan: COVID 19 BRONCHITIS Lowest O2 sats of 92 on room air documented at patient's home and at the ER. Currently patient is doing well on room air, oxygen saturation more than 90% Clinically feeling better CT chest angio: No pneumonia, no pulmonary embolism She declines to receive IV Remdesivir after discussion regarding benefits including evidence-based data showing benefits for COVID-19 patients, possible adverse effects including kidney injury and liver injury She is aware of possible progression to pneumonia, hypoxic respiratory failure if not administered Patient is agreeable to proceed with nebulizer treatments, Mucinex, and other supportive care measures Continue to monitor closely 07/19 remains stable, on room air (+) nasal congestion: add Flonase continue Doxycycline, Mucinex continue Nebs, Flutter Valve, IS on Lovenox SC for DVT prophylaxis 07/20 Patient improving clinically On room air, saturating 96% Discharge medications: Doxycycline 100 mg twice daily x5 more days to complete 1 week course Mucinex 600 mg twice daily x1 week Flonase twice a day x1 week Patient encouraged to use incentive spirometry and flutter valve at home Advised to ambulate frequently HYPERTENSION discussed with patient she is agreeable with starting Amlodipine 5mg daily Echocardiogram: Left ventricle is normal in size There is moderate concentric left ventricular hypertrophy No regional wall motion abnormalities noted Ejection fraction 60 to 65% Grade 1 diastolic dysfunction Distal no significant valvular disease Doppler findings do not suggest pulmonary hypertension Discharge plan: Amlodipine 5 mg daily HCTZ 12.5 mg p.o. daily chronic bradycardia as per records hx ORION/CPAP intolerance Hyperglycemia A1c 5.8-monitor as an outpatient past tobacco abuse PT OT eval DVT prophylaxis. Lovenox subcu Full code Disposition Discharge to home Follow-up with primary care physician Dr. Erika Ramírez in 1 week plan of care discussed with patient in detail all questions answered she is understanding, agreeable, comfortable with the plan of care Admission and Anticipated Discharge Date Admission Date: July 18, 2023 Subjective Follow-up for COVID-19 infection, bronchitis, etc. Seen resting in chair, comfortable, not in distress On room air, saturating 96% States she feels better overall today Nasal congestion is better Less coughing, no shortness of breath, chest pain, palpitations, dizziness No abdominal pain, nausea vomiting, diarrhea post urination No other new symptoms States she is ready and would like to be discharged today Review of Systems Review of Systems: all noted and negative except for above Physical Exam Physical Exam: General- oriented x 3, not in distress, speaks in sentences with no effort or accessory muscle use Eyes- anicteric Neck- no JVD Lungs- clear breath sounds bilaterally, no wheezing, no crackles Heart- normal rate, regular rhythm; no murmurs Abdomen- normal bowel sounds, nondistended, soft, nontender Extremities- no pretibial edema, no calf tenderness Neuro- alert, oriented x 3; no gross focal neurologic deficits Skin- warm & dry Results & Data Results & Data Vital Signs (Past 12 Hours) Vital Signs Temp Pulse Pulse Resp BP Pulse Ox O2 Del Method 07/20/23 09:18 36.7 C 84 16 129/76 96 Room Air 07/20/23 08:07 66 07/20/23 07:30 81 18 94 Room Air 07/20/23 03:26 37.0 C 93 H 20 141/87 H 93 Room Air all noted and reviewed including below
[2023-07-20] MEDS: guaiFENesin 600 MG TABCR PO SCH (11:49)
--- NOTE | 2023-07-20 17:33 | Discharge Summary ---
Discharge Summary Date of Service July 20, 2023 Notes For Next Care Provider Medication Changes From Visit Doxycycline-antibiotic for bronchitis Mucinex-for cough Flonase-for nasal congestion Amlodipine, HCTZ-for control of high blood pressure Admission HPI Per Admitting Provider History obtained from patient and records. Medical history significant for hypertension, chronic bradycardia, ORION/CPAP intolerance, past tobacco abuse, medical noncompliance. Last confinement December 2020 for near syncope and uncontrolled hypertension. Patient discharged on lisinopril but eventually stopped medication after a year because she admits to not like taking pills. 2 weeks history of dry cough symptoms which later became junky productive of yellow-green sputum. Chest pain and headache from coughing and worsening shortness of breath. Denies aspiration. Not sure about sick contacts as she lives in a building apartment. Patient has not received COVID-19 vaccination. Poor appetite and increasing weakness. Patient slid off the couch at home and could not get up. No head trauma, LOC, syncope. Patient activated her medical alert device. Lowest O2 sats of 92 on room air noted at home. Patient brought to the ER for evaluation. Decadron administered at the ER. Medical History as above Surgical History : Cholecystectomy Family History : DM, heart disease Personal/Social history : Past tobacco abuse, occasional EtOH intake, retired [employer] Admission Exam Per Admitting Provider GENERAL: Comfortable, morbidly obese, no respiratory distress SKIN: Normal color, warm HEENT: [place] palpebral conjunctivae, no ptosis, dry buccal mucosa NECK : Supple, short neck, no tenderness CHEST : Decreased breath sounds, occasional expiratory wheezes, no tenderness HEART : RRR, no obvious murmurs ABDOMEN: Some distention, nontender EXTREMITIES : No LE swelling/tenderness, no other conspicuous deformities noted NEUROLOGIC : Coherent, no facial asymmetry, gait and stance not assessed Principal Dx & Hospital Course #1 = Principal Diagnosis (1) Sepsis: (2) COVID-19: COVID 19 BRONCHITIS Lowest O2 sats of 92 on room air documented at patient's home and at the ER. Currently patient is doing well on room air, oxygen saturation more than 90% Clinically feeling better CT chest angio: No pneumonia, no pulmonary embolism She declines to receive IV Remdesivir after discussion regarding benefits including evidence-based data showing benefits for COVID-19 patients, possible adverse effects including kidney injury and liver injury She is aware of possible progression to pneumonia, hypoxic respiratory failure if not administered Patient is agreeable to proceed with nebulizer treatments, Mucinex, and other supportive care measures Continue to monitor closely 07/20 Patient improved clinically On room air, saturating 96% Discharge medications: Doxycycline 100 mg twice daily x5 more days to complete 1 week course Mucinex 600 mg twice daily x1 week Flonase twice a day x1 week Patient encouraged to use incentive spirometry and flutter valve at home Advised to ambulate frequently HYPERTENSION Has declined blood pressure medications in the past discussed with patient in detail she is agreeable with starting Amlodipine 5mg daily and HCTZ Echocardiogram: Left ventricle is normal in size There is moderate concentric left ventricular hypertrophy No regional wall motion abnormalities noted Ejection fraction 60 to 65% Grade 1 diastolic dysfunction Distal no significant valvular disease Doppler findings do not suggest pulmonary hypertension Discharge plan: Amlodipine 5 mg daily HCTZ 12.5 mg p.o. daily chronic bradycardia as per records hx OROIN/CPAP intolerance Hyperglycemia A1c 5.8-monitor as an outpatient past tobacco abuse Disposition Discharge to home Follow-up with primary care physician Dr. Erika Jaquez in 1 week plan of care discussed with patient in detail all questions answered she is understanding, agreeable, comfortable with the plan of care Discharge Exam General- oriented x 3, not in distress, speaks in sentences with no effort or accessory muscle use Eyes- anicteric Neck- no JVD Lungs- clear breath sounds bilaterally, no wheezing, no crackles Heart- normal rate, regular rhythm; no murmurs Abdomen- normal bowel sounds, nondistended, soft, nontender Extremities- no pretibial edema, no calf tenderness Neuro- alert, oriented x 3; no gross focal neurologic deficits Skin- warm & dry Updated Medication List Medication Instructions Recorded Confirmed Type multivitamin (Multiple Vitamins 1 tab PO DAILY 07/18/23 07/18/23 History tablet) amlodipine 5 mg tablet (Norvasc) 5 mg PO QAM 30 days #30 tabs 07/20/23 Rx doxycycline hyclate 100 mg capsule 100 mg PO BID 5 days #10 caps 07/20/23 Rx fluticasone propionate 50 1 spray NA BID 7 days #16 grams 07/20/23 Rx mcg/actuation nasal spray,suspension guaifenesin 600 mg tablet, 600 mg PO Q12 7 days #14 tabs 07/20/23 Rx extended release 12 hr (Mucinex) hydrochlorothiazide 12.5 mg tablet 12.5 mg PO DAILY #30 tabs 07/20/23 Rx Hospital Stay Data Consultations 07/18/23 01:47 ED Decision to Admit Stat Diagnostic Imagining Performed Chest X-Ray 07/17/23 23:40 XR chest 1V portable CLINICAL HISTORY: Sepsis. COMPARISON STUDY: Chest radiograph December 26, 2020. Chest CT December 27, 2020. FINDINGS: No pneumothorax or pleural effusion is noted. Elevation of the left hemidiaphragm is unchanged. Cardiomegaly is unchanged. There is no evidence for pulmonary edema. There is no consolidation to suggest pneumonia. There has been no significant change in appearance of the chest. IMPRESSION: No acute cardiopulmonary findings. No change in appearance of the chest. ACT 112: Negative or not required by law. Electronically signed by: El Quevedo M.D. 07/18/2023 8:24 AM Chest CTA 07/18/23 08:42 CT ANGIOGRAPHY OF THE CHEST, PULMONARY EMBOLUS PROTOCOL CLINICAL HISTORY: Covid. Shortness of breath. Cough. Evaluate for pulmonary embolus. COMPARISON STUDY: Chest radiograph performed earlier today. Chest CT December 27, 2020. TECHNIQUE: Following IV administration of 74 mL of Optiray, helical axial images of the chest were obtained utilizing the pulmonary embolus protocol. Maximal intensity projections and sagittal and coronal reformats were viewed on an independent 3D workstation. IV contrast was administered without complication. Automated exposure control was utilized for the study. A dose lowering technique was utilized adhering to the principles of ALARA. CT DOSE: 888.19 mGy.cm FINDINGS: No pulmonary emboli are identified. There is mild cardiomegaly. There is also mild dilatation of the central pulmonary arteries. No thoracic aortic dissection is present. There is no pericardial effusion. Elevation of left hemidiaphragm is unchanged. There is no pneumothorax or pleural effusion. No consolidation is identified. Linear subpleural densities favor scarring or atelectasis. No acute fractures within the bony thorax are noted. The gallbladder is surgically absent. Visualized portions of the upper abdomen are unremarkable. IMPRESSION: 1. No pulmonary emboli identified. 2. No consolidation to suggest pneumonia. 3. Cardiomegaly. ACT 112: Negative or not required by law. Electronically signed by: El Quevedo M.D. 07/18/2023 9:47 AM Pending Results Patient Have Any Pending Studies at Discharge: No Discharge Instructions Given to Patient (Per Discharging Provider) PLEASE REFER TO YOUR NEW MEDICATION LIST AND FOLLOW INSTRUCTIONS CAREFULLY. YOUR NEW MEDICATIONS INCLUDE: Doxycycline-antibiotic for bronchitis Mucinex-for cough Flonase-for nasal congestion Amlodipine, HCTZ-for control of high blood pressure Please take a probiotic daily for at least 2 weeks. [employer] brand recommened. PLEASE CALL YOUR PRIMARY CARE PHYSICIAN OR RETURN TO THE ER IF WITH WORSENING OF SYMPTOMS, INCLUDING Shortness of breath, cough, fevers or chills, chest pain, palpitations, dizziness, etc. IT IS VERY IMPORTANT TO FOLLOW-UP WITH YOUR PRIMARY CARE PHYSICIAN IN 1 WEEK, TO FOLLOW-UP FOR BRONCHITIS AND HIGH BLOOD PRESSURE. TAKE CARE. You still need to isolate for 7 days to prevent transmission of COVID-19 pain Home Isolation COVID-19 Instructions The following information about Home Isolation is from the CDC Website: https://www.cdc.gov/coronavirus/2019-ncov/hcp/pwubhqcp-gbovdqm-ybyvkk.html Stay home except to get medical care People who are mildly ill with COVID-19 are able to isolate at home during their illness. You should restrict activities outside your home, except for getting medical care. Do not go to work, school, or public areas. Avoid using public transportation, ride-sharing, or taxis. Separate yourself from other people and animals in your home People: As much as possible, you should stay in a specific room and away from other people in your home. Also, you should use a separate bathroom, if available. Animals: You should restrict contact with pets and other animals while you are sick with COVID-19, just like you would around other people. Although there have not been reports of pets or other animals becoming sick with COVID-19, it is still recommended that people sick with COVID-19 limit contact with animals until more information is known about the virus. When possible, have another member of your household care for your animals while you are sick. If you are sick with COVID-19, avoid contact with your pet, including petting, snuggling, being kissed or licked, and sharing food. If you must care for your pet or be around animals while you are sick, wash your hands before and after you interact with pets and wear a face mask. Call ahead before visiting your doctor If you have a medical appointment, call the healthcare provider and tell them that you have or may have COVID-19. This will help the healthcare providers office take steps to keep other people from getting infected or exposed. Wear a face mask You should wear a face mask when you are around other people (e.g., sharing a room or vehicle) or pets and before you enter a healthcare providers office. If you are not able to wear a face mask (for example, because it causes trouble breathing), then people who live with you should not stay in the same room with you, or they should wear a face mask if they enter your room. Cover your coughs and sneezes Cover your mouth and nose with a tissue when you cough or sneeze. Throw used tissues in a lined trash can. Immediately wash your hands with soap and water for at least 20 seconds or, if soap and water are not available, clean your hands with an alcohol-based hand drilling rig operator that contains at least 60% alcohol. Clean your hands often Wash your hands often with soap and water for at least 20 seconds, especially after blowing your nose, coughing, or sneezing; going to the bathroom; and befo re eating or preparing food. If soap and water are not readily available, use an alcohol-based hand drilling rig operator with at least 60% alcohol, covering all surfaces of your hands and rubbing them together until they feel dry. Soap and water are the best option if hands are visibly dirty. Avoid touching your eyes, nose, and mouth with unwashed hands. Avoid sharing personal household items You should not share dishes, drinking glasses, cups, eating utensils, towels, or bedding with other people or pets in your home. After using these items, they should be washed thoroughly with soap and water. Clean all high-touch surfaces everyday High touch surfaces include counters, tabletops, doorknobs, bathroom fixtures, toilets, phones, keyboards, tablets, and bedside tables. Also, clean any surfaces that may have blood, stool, or body fluids on them. Use a household cleaning spray or wipe, according to the label instructions. Labels contain instructions for safe and effective use of the cleaning product including precautions you should take when applying the product, such as wearing gloves and making sure you have good ventilation during use of the product. Monitor your symptoms Seek prompt medical attention if your illness is worsening (e.g., difficulty breathing).Beforeseeking care, call your healthcare provider and tell them that you have, or are being evaluated for, COVID-19. Put on a face mask before you enter the facility. These steps will help the healthcare providers office to keep other people in the office or waiting room from getting infected or exposed. Ask your healthcare provider to call the local or state health department. Persons who are placed under active monitoring or facilitated self- monitoring should follow instructions provided by their local health department or occupational health professionals, as appropriate. When working with your local health department check their available hours. If you have a medical emergency and need to call 911, notify the dispatch personnel that you have, or are being evaluated for COVID-19. If possible, put on a face mask before emergency medical services arrive. Discontinuing home isolation Patients with confirmed COVID-19 should remain under home isolation precautions until the risk of secondary transmission to others is thought to be low. The decision to discontinue home isolation precautions should be made on a [id number] basis, in consultation with healthcare providers and state and local health departments. Total Time Total Time Spent Total Time Spent (In Minutes): >30 minutes
== END 2023-07-20 14:20 | disposition home or self-care (01) ==
LOC: ED 23:11 → EDINP 07-18 02:34 → INTOOBSV 07-18 02:34 → SUPCPDRO 07-18 02:34 → 2N 07-18 03:23